=== PATIENT | female | born 1970 | race Caucasian/White ===

== ENCOUNTER → 2022-12-05 09:35 | Outpatient (BNVA) | payer OTHER, SELFPAY | PROVIDERS: Visit Provider Internal Medicine | DX: S09.90XA Unspecified injury of head, initial encounter (principal); S19.9XXA Unspecified injury of neck, initial encounter; S29.9XXA Unspecified injury of thorax, initial encounter; S39.92XA Unspecified injury of lower back, initial encounter; T14.90XA Injury, unspecified, initial encounter; W20.8XXA Other cause of strike by thrown, projected or falling object, initial encounter | CPT/HCPCS: 99203 ==

== ENCOUNTER → 2022-12-12 11:25 | Outpatient (BNVA) | payer OTHER, SELFPAY | PROVIDERS: Visit Provider Internal Medicine | DX: S39.92XD Unspecified injury of lower back, subsequent encounter (principal); S19.9XXD Unspecified injury of neck, subsequent encounter; W20.8XXD Other cause of strike by thrown, projected or falling object, subsequent encounter | CPT/HCPCS: 99213 ==

== ENCOUNTER → 2022-12-19 11:38 | Outpatient (BNVA) | payer OTHER, SELFPAY | PROVIDERS: Visit Provider Internal Medicine | DX: S39.92XD Unspecified injury of lower back, subsequent encounter (principal); W20.8XXD Other cause of strike by thrown, projected or falling object, subsequent encounter | CPT/HCPCS: 99213 ==

== ENCOUNTER → 2022-12-30 11:30 | Outpatient (BNVA) | payer OTHER, SELFPAY | PROVIDERS: Visit Provider Internal Medicine | DX: S39.92XD Unspecified injury of lower back, subsequent encounter (principal); S19.9XXD Unspecified injury of neck, subsequent encounter; W20.8XXD Other cause of strike by thrown, projected or falling object, subsequent encounter; M54.42 Lumbago with sciatica, left side; M54.41 Lumbago with sciatica, right side | CPT/HCPCS: 99213 ==

== ENCOUNTER → 2023-01-10 10:09 | Outpatient (BNVA) | payer OTHER, SELFPAY | PROVIDERS: Visit Provider Internal Medicine | DX: M54.9 Dorsalgia, unspecified (principal); M79.651 Pain in right thigh | CPT/HCPCS: 99213 ==

== ENCOUNTER → 2023-01-24 11:28 | Outpatient (BNVA) | payer OTHER, SELFPAY | PROVIDERS: Visit Provider Internal Medicine | DX: M54.50 Low back pain, unspecified (principal); M54.2 Cervicalgia | CPT/HCPCS: 99213 ==

== ENCOUNTER → 2023-02-07 10:43 | Outpatient (BNVA) | payer OTHER, SELFPAY | PROVIDERS: Visit Provider Internal Medicine | DX: M54.89 Other dorsalgia (principal); M54.2 Cervicalgia | CPT/HCPCS: 99213 ==

== ENCOUNTER → 2023-02-28 10:55 | Outpatient (BNVA) | payer OTHER, SELFPAY | PROVIDERS: Visit Provider Internal Medicine | DX: M54.9 Dorsalgia, unspecified (principal); M54.2 Cervicalgia | CPT/HCPCS: 99213 ==

== ENCOUNTER → 2023-03-06 13:04 | Outpatient (BNVA) | payer OTHER, SELFPAY | PROVIDERS: Visit Provider Physician Assistant Medical | DX: M54.9 Dorsalgia, unspecified (principal); M54.2 Cervicalgia | CPT/HCPCS: 99214 ==

== ENCOUNTER 2023-03-14 10:45 | Outpatient (AMB) | payer MEDICAID, SELFPAY ==
--- NOTE | 2023-03-14 10:47 | MHC.OFFVIS ---
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 Weber, methadone usage presents today with work related injury presents with neck pain that radiates to her arm, worse on the right with constant numbness, tingling, paresthesias and lower back pain with radiation into her right buttock and into her posterior thigh with occasional numbness and tingling but not below knee level. She reports a box and from a 6 feet tall shelf and hit her in the middle posterior neck and glided on her back causing her significant ongoing pain, headaches, muscle spasms, stiffness and decreased functionality with walking and bending but does not necessarily go away with rest. Pain affects her daily functioning, activities, sleep, mood, and social interactions. Physical therapy has provided minimal improvements. 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 Patient has modified her duties at [employer] and has tried to go back at work but notices increased in pain. Denies any fever, shortness of breaths, chest pain, dizziness, gait imbalance, bladder or bowel incontinence or saddle anesthesia. Patient was referred to our office for potential trigger point injections. Onset 11/14/22 Location Mid and lower back, neck and buttocks radiates to right knee Duration Constant pain for past 4 months due to work-related injury Characteristics of symptom or complaint Aching, stabbing, sharp, throbbing, cramping, numbness, tingling, spasming Aggravating or associated factors Movements, walking, bending, lifting Relieving factors Resting, lidocaine patch, NSAIDs Treatment Physical therapy, home program exercises [facility] Medical History Anxiety Chronic low back pain Graves disease History of blood clots History of cervical cancer History of seizure 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 Surgical History History of carpal tunnel surgery History of cone biopsy of cervix History of D&C History of lumbar surgery History of nasal surgery History of shoulder surgery Social History Alcohol intake: never Patient Tobacco Use Status: Current everyday Tobacco user Tobacco use type: Cigarette Cigarette Packs Per Day: 0.5 Use of substances other than those prescribed or required for medical reasons: No Review of Systems Const All systems reviewed & are unremarkable except as noted in HPI and below Physical Exam Vital Signs: Last Vital Signs Pulse 92 03/14/23 11:59 BP 118/62 03/14/23 11:59 Pulse Ox 96 03/14/23 11:59 Oxygen Delivery Method Room Air 03/14/23 11:59 BMI result Body Mass Index 28.6 General: Appears afebrile. Alert and oriented. Mood and affect appropriate. Follows and participates in conversation appropriately. Respiratory effort is unlabored. No cough. No nasal discharge. Able to transition from sit to stand unassisted. Ambulates with bilaterally normal heel strike and toe off. Neck Other: Patient with decreased cervical ROM in all planes/especially with left lateral rotation. Reports increased pain with cervical extension and flexion. Spurling compression test positive, worse on the right. Pain is unchanged by Spurling maneuver with retraction. Elvey's tension test positive bilaterally, with radiation of pain from neck to wrist. Lhermitte's test was negative. DTR intact, +2 and symmetrical. Patient demonstrated 5/5 motor strength of bilateral upper extremities. 2 + radial pulses. Significant tightness throughout bilateral upper trapezius muscles. Mild paravertebral tenderness over facet joints bilaterally. Multiple taut bands palpated throughout bilateral upper trapezius muscles and right levator scapulae muscles. Neck: Yes normal visual inspection, Yes no lymphadenopathy, Yes supple, No anterior neck swelling and Yes no JVD Office Procedures Therapeutic Injection Therapeutic Injection Details: After discussing risk, benefits, expectations and details of the procedure, the patient signed the informed consent. Patient was placed in a sitting position with the neck exposed. Four tender points, (Bilateral upper trapezius and left levator scapulae), were palpated, marked, and then prepped using Chloraprep swab. A 25-gauge, 1 1/2-inch needle was inserted into the area of maximal tenderness with sterile technique. In a fan-like distribution I injected 5 ml of ropivacaine along with 40 mg of Kenalog equally into each trigger point. The needle was withdrawn and bandaids were applied to injection sites. Patient tolerated the procedure well. Post-injection precautions were reviewed with the patient. The patient was discharged from the clinic . [id number] Point Injection =/>3 sites All charges added?: Procedure code (CPT) selection complete Office Meds triamcinolone acetonide Performing Provider: BUTCH Gooden Administered by: BUTCH Gooden on 03/14/23 11:30 Dose Route Admin Location Lot Number Expiration Date [facility] Energy Administrator 40 mg IM [facility] [id number] 11/05/24 [address]-6 [employer] bupivacaine (PF) Performing Provider: BUTCH Gooden Administered by: BUTCH Gooden on 03/14/23 11:30 Dose Route Admin Location Lot Number Expiration Date [facility] Energy Administrator 5 mL Infiltration [facility] [id number] 12/12/25 59336-795-06 [facility] Results Reviewed Results Reviewed: XR THORACIC SPINE, 3 VIEWS XR LUMBAR SPINE, 3 VIEWS 03/06/23 FINDINGS: 5 nonrib-bearing lumbar-type vertebral bodies with suggestion of right L5 hemisacralization. No acute visible fracture or dislocation. Slight levocurvature of the mid lumbar spine. Mild to moderate multilevel degenerative changes disc space narrowing, endplate sclerosis, osteophyte formation, and facet arthropathy. Vertebral body heights and disc spaces are maintained. Posterior elements are intact. Paraspinal soft tissues are unremarkable. Visualized portions of the chest and abdomen are unremarkable. T-shaped IUD noted in the pelvis. IMPRESSION: 1. No acute visible fracture or dislocation. 2. Slight levocurvature of the mid lumbar spine. 3. Mild to moderate multilevel degenerative changes. 4. T-shaped IUD noted in the pelvis. XR CERVICAL SPINE 03/06/23 FINDINGS: No acute visible fracture or dislocation. Multilevel degenerative changes of the cervical spine greatest at C3-C4 with severe disc space narrowing and facet ankylosis. Visualized dens is intact. Vertebral body heights and disc spaces are maintained. Prevertebral soft tissues are unremarkable. Posterior elements are intact. Paraspinal soft tissues are unremarkable. Visualized portions of the upper chest are unremarkable. IMPRESSION: 1. No acute visible fracture or dislocation. 2. Multilevel degenerative changes of the cervical spine greatest at C3-C4 with severe disc space narrowing and facet ankylosis. Assessment & Plan Assessment & Plan (1) Cervical radiculitis: Code(s): M54.12 - Radiculopathy, cervical region (2) Cervical spondylosis: Code(s): M47.812 - Spondylosis without myelopathy or radiculopathy, cervical region (3) History of injury of neck: Code(s): Z87.828 - Personal history of other (healed) physical injury and trauma (4) Myofascial neck pain: Code(s): M54.2 - Cervicalgia (5) Muscle spasm: Code(s): M62.838 - Other muscle spasm Plan 1. Spine imaging reviewed with patient. Cervical spine xray is noted for multilevel degenerative changes of the cervical spine greatest at C3-C4 with severe disc space narrowing and facet ankylosis. Will proceed MRI of the cervical spine to assess for neural integrity and compression. Patient will return to the clinic to discuss results of the MRI findings when it is done and consider interventional therapy as indicated. 2. Discussed interventional treatments for cervical and lower back axial and radicular pain. After discussing with patient TPI versus JEOVANY, she wanted to proceed with TPI. Patient is aware to monitor for side effects. 3. Patient is status post bilateral upper trapezius and right levator scapulae trigger point injections.? Patient tolerated the procedure well and was discharged home in stable condition with discharge instructions.? All questions and concerns were answered. We will follow-up in the clinic to assess response to therapy.? May repeat in 3 months if a good response is noted. Orders: Orders MR cervical spine wo con 03/14/23 M47.812 - Spondylosis without myelopathy or radiculopathy, cervical region, M54.12 - Radiculopathy, cervical region, Z87.828 - Personal history of other (healed) physical injury and trauma Trigger Point Injection 03/14/23 M47.812 - Spondylosis without myelopathy or radiculopathy, cervical region, M54.2 - Cervicalgia, M62.838 - Other muscle spasm Coding Level of Care Code New Pt Level 4 (02958) Diagnoses Cervical radiculitis M54.12 Cervical spondylosis M47.812 History of injury of neck Z87.828 Myofascial neck pain M54.2 Muscle spasm M62.838 CPT Codes Therapeutic Injection - Ther Injection 2: 13527-[id number] Point Injection =/>3 sites ([id number])
[2023-03-14 11:06] VITALS: BP 117/59; PULSE 99; O2SAT 96; BMI 28.6
[2023-03-14 11:58] VITALS: BP 114/57; PULSE 99; O2SAT 95
[2023-03-14 11:59] VITALS: BP 118/62; PULSE 92; O2SAT 96
== END 2023-03-14 11:53 | disposition home or self-care (01) ==
PROVIDERS: Visit Provider Nurse Practitioner Family
DX: M54.12 Radiculopathy, cervical region (principal); M47.812 Spondylosis without myelopathy or radiculopathy, cervical region; Z87.828 Personal history of other (healed) physical injury and trauma; M54.2 Cervicalgia; M62.838 Other muscle spasm
CPT/HCPCS: 20553; 99204

== ENCOUNTER → 2023-03-14 10:45 | Outpatient (BNVA) | payer SELFPAY | PROVIDERS: Visit Provider Nurse Practitioner Family | DX: M47.22 Other spondylosis with radiculopathy, cervical region (principal); M54.2 Cervicalgia; M62.838 Other muscle spasm; Z79.891 Long term (current) use of opiate analgesic | CPT/HCPCS: 20553; 99202; J3300 ==

== ENCOUNTER 2023-03-25 09:29 | Outpatient (REF) | payer SELFPAY ==
--- NOTE | ~2023-03-25 | MR_ITS ---
EXAMINATION: MR CERVICAL SPINE WITHOUT CONTRAST CLINICAL INFORMATION: Spondylosis without myelopathy or radiculopathy. COMPARISON: None available. TECHNIQUE: MRI of the cervical spine was performed using routine sequences without contrast. FINDINGS: The cervical vertebral bodies maintain normal heights and alignment. There is incomplete segmentation of the C3-C4 level with a hypoplastic disc and fusion of the posterior elements. There is moderate disc height loss at C5-C6 and mild disc height loss at C4-C5. No marrow edema is seen. The cord signal appears normal. The imaged intracranial contents and extraspinal soft tissues are unremarkable. SPINAL LEVELS: C2-C3: No posterior disc abnormality. No spinal canal or neural foraminal stenosis. C3-C4: Hypoplastic disc and fused facets. No spinal canal or neural foraminal stenosis. C4-C5: Mild disc osteophyte complex with uncovertebral hypertrophy. Mild to moderate bilateral neural foraminal stenosis. No spinal canal stenosis. C5-C6: Disc osteophyte complex with uncovertebral hypertrophy resulting in severe bilateral neural foraminal stenosis. No spinal canal stenosis. C6-C7: Left foraminal protrusion with uncovertebral hypertrophy resulting in mild to moderate left neural foraminal stenosis. No spinal canal stenosis. C7-T1: No posterior disc abnormality. No spinal canal or neural foraminal stenosis. MR/MR cervical spine wo con IMPRESSION: Multilevel degenerative spondylosis without significant narrowing of the spinal canal. Neural foraminal stenosis appears mild to moderate bilaterally at C4-C5, severe bilaterally at C5-C6, and mild to moderate on the left at C6-C7.
== END 2023-03-25 09:30 | disposition home or self-care (01) ==
LOC: HO.MRI 09:29
PROVIDERS: PCP Internal Medicine; Visit Provider Nurse Practitioner Family
DX: M47.812 Spondylosis without myelopathy or radiculopathy, cervical region (principal); M54.12 Radiculopathy, cervical region; Z87.828 Personal history of other (healed) physical injury and trauma
CPT/HCPCS: 72141

== ENCOUNTER → 2023-03-31 11:31 | Outpatient (BNVA) | payer SELFPAY | PROVIDERS: PCP Internal Medicine; Visit Provider Internal Medicine | DX: M54.2 Cervicalgia (principal); M54.9 Dorsalgia, unspecified; S19.9XXD Unspecified injury of neck, subsequent encounter; S39.92XD Unspecified injury of lower back, subsequent encounter; X58.XXXD Exposure to other specified factors, subsequent encounter | CPT/HCPCS: 99214 ==

== ENCOUNTER 2023-04-04 15:40 | Outpatient (AMB) | payer MEDICAID, SELFPAY ==
--- NOTE | 2023-04-04 15:41 | A.OFFVIS_ITS ---
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 She reports reduced muscle spasms and stiffness s/p recent bilateral upper trapezius and right levator scapulae trigger point injections on 03/14/23 with 2 weeks of relief. She continues to endorse neck pain with movements with radiation to her both arms and fingers bilaterally, mostly thumb, tips of 2nd and 3rd fingers with intermittent tingling and numbness bilaterally. She is interested to undergo interventional treatments with fluoroscopy guidance to address her axial and radicular cervical spine symptoms. Denies any recent cough, cold, infection, fever or other significant changes in medical history since last office visit. Patient denies any bladder or bowel incontinence or saddle anesthesia. PRIOR: Patient is a pleasant 52 years old female with history of seizures, depression, back surgery [place] [address] Weber, methadone usage presents today with work related injury presents with neck pain that radiates to her arm, worse on the right with constant numbness, tingling, paresthesias and lower back pain with radiation into her right buttock and into her posterior thigh with occasional numbness and tingling but not below knee level. She reports a box and from a 6 feet tall shelf and hit her in the middle posterior neck and glided on her back causing her significant ongoing pain, headaches, muscle spasms, stiffness and decreased functionality with walking and bending but does not necessarily go away with rest. Pain affects her daily functioning, activities, sleep, mood, and social interactions. Physical therapy has provided minimal improvements. 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 Patient has modified her duties at [employer] and has tried to go back at work but notices increased in pain. Denies any fever, shortness of breaths, chest pain, dizziness, gait imbalance, bladder or bowel incontinence or saddle anesthesia. Patient was referred to our office for potential trigger point injections. Onset 11/14/22 Location Mid and lower back, neck and buttocks radiates to right knee Duration Constant pain for past 4 months due to work-related injury Characteristics of symptom or complaint Aching, stabbing, sharp, throbbing, cramping, numbness, tingling, spasming Aggravating or associated factors Movements, walking, bending, lifting Relieving factors Resting, lidocaine patch, NSAIDs Treatment Physical therapy, home program exercises [facility] Medical History Anxiety Chronic low back pain Graves disease History of blood clots History of cervical cancer History of seizure 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 Surgical History History of carpal tunnel surgery History of cone biopsy of cervix History of D&C History of lumbar surgery History of nasal surgery History of shoulder surgery Social History Alcohol intake: never Patient Tobacco Use Status: Current everyday Tobacco user Tobacco use type: Cigarette Cigarette Packs Per Day: 0.5 Review of Systems Const All systems reviewed & are unremarkable except as noted in HPI and below Physical Exam Vital Signs: Last Vital Signs Pulse 113 H 04/04/23 15:45 BP 142/64 H 04/04/23 15:45 Pulse Ox 98 04/04/23 15:45 Oxygen Delivery Method Room Air 04/04/23 15:45 BMI result Body Mass Index 28.6 General: Appears afebrile. Alert and oriented. Mood and affect appropriate. Follows and participates in conversation appropriately. Respiratory effort is unlabored. Able to transition from sit to stand unassisted. Ambulates with bilaterally normal heel strike and toe off. Neck Other: Limited cervical ROM with left lateral rotation and increased pain with cervical extension and flexion. Spurling compression test positive, worse on the right. Pain is unchanged by Spurling maneuver with retraction. Elvey's tension test positive bilaterally, with radiation of pain from neck to wrist with in termittent tingling in thumb, 2nd and 3rd fingers bilaterally. Lhermitte's test was negative. DTR intact, +2 and symmetrical. Patient demonstrated 5/5 motor strength of bilateral upper extremities. 2 + radial pulses. No clonus, negative Jimmie's sign. Neck: Yes no lymphadenopathy, Yes supple, No anterior neck swelling and Yes no JVD Back/Spine/Pelvis Cervical Spine: cervical muscular tenderness, pain with cervical ROM, No Cervical spine scars present, No Cervical spine tenderness and No step off deformity Results Reviewed Results Reviewed: MR CERVICAL SPINE WITHOUT CONTRAST 03/25/23 FINDINGS: The cervical vertebral bodies maintain normal heights and alignment. There is incomplete segmentation of the C3-C4 level with a hypoplastic disc and fusion of the posterior elements. There is moderate disc height loss at C5-C6 and mild disc height loss at C4-C5. No marrow edema is seen. The cord signal appears normal. The imaged intracranial contents and extraspinal soft tissues are unremarkable. SPINAL LEVELS: C2-C3: No posterior disc abnormality. No spinal canal or neural foraminal stenosis. C3-C4: Hypoplastic disc and fused facets. No spinal canal or neural foraminal stenosis. C4-C5: Mild disc osteophyte complex with uncovertebral hypertrophy. Mild to moderate bilateral neural foraminal stenosis. No spinal canal stenosis. C5-C6: Disc osteophyte complex with uncovertebral hypertrophy resulting in severe bilateral neural foraminal stenosis. No spinal canal stenosis. C6-C7: Left foraminal protrusion with uncovertebral hypertrophy resulting in mild to moderate left neural foraminal stenosis. No spinal canal stenosis. C7-T1: No posterior disc abnormality. No spinal canal or neural foraminal stenosis. IMPRESSION: Multilevel degenerative spondylosis without significant narrowing of the spinal canal. Neural foraminal stenosis appears mild to moderate bilaterally at C4-C5, severe bilaterally at C5-C6, and mild to moderate on the left at C6-C7. XR THORACIC SPINE, 3 VIEWS XR LUMBAR SPINE, 3 VIEWS 03/06/23 FINDINGS: 5 nonrib-bearing lumbar-type vertebral bodies with suggestion of right L5 hemisacralization. No acute visible fracture or dislocation. Slight levocurvature of the mid lumbar spine. Mild to moderate multilevel degenerative changes disc space narrowing, endplate sclerosis, osteophyte formation, and facet arthropathy. Vertebral body heights and disc spaces are maintained. Posterior elements are intact. Paraspinal soft tissues are unremarkable. Visualized portions of the chest and abdomen are unremarkable. T-shaped IUD noted in the pelvis. IMPRESSION: 1. No acute visible fracture or dislocation. 2. Slight levocurvature of the mid lumbar spine. 3. Mild to moderate multilevel degenerative changes. 4. T-shaped IUD noted in the pelvis. XR CERVICAL SPINE 03/06/23 FINDINGS: No acute visible fracture or dislocation. Multilevel degenerative changes of the cervical spine greatest at C3-C4 with severe disc space narrowing and facet ankylosis. Visualized dens is intact. Vertebral body heights and disc spaces are maintained. Prevertebral soft tissues are unremarkable. Posterior elements are intact. Paraspinal soft tissues are unremarkable. Visualized portions of the upper chest are unremarkable. IMPRESSION: 1. No acute visible fracture or dislocation. 2. Multilevel degenerative changes of the cervical spine greatest at C3-C4 with severe disc space narrowing and facet ankylosis. Assessment & Plan Assessment & Plan (1) Cervical radiculitis: Code(s): M54.12 - Radiculopathy, cervical region (2) Cervical spondylosis: Code(s): M47.812 - Spondylosis without myelopathy or radiculopathy, cervical region (3) History of injury of neck: Code(s): Z87.828 - Personal history of other (healed) physical injury and trauma (4) Myofascial neck pain: Code(s): M54.2 - Cervicalgia (5) Muscle spasm: Code(s): M62.838 - Other muscle spasm Plan 1. Cervical spine MRI results reviewed with patient and noted for multilevel degenerative spondylosis with neural foraminal stenosis appears mild to moderate bilaterally at C4-C5, severe bilaterally at C5-C6, and mild to moderate on the left at C6-C7. 2. Discussed interventional treatments for cervical axial and radicular pain. Schedule Bilateral Diagnostic C4-C5-C6 MBBs with local and fluoroscopy for potential therapeutic injections, peripheral nerve stimulation or cervical MB RFA. For radicular symptoms, will subsequently plan for Bilateral C5-C6 TFESI with fluoroscopy and local. If no relief, will consider neurosurgical evaluation. Expectations, risks and benefits were reviewed. Patient is aware he will be contacted to schedule this procedure. All questions were answered and the patient is in agreement of plan. Follow-up after injections and sooner as needed. Coding Level of Care Code Est Pt Level 4 (66429) Diagnoses Cervical radiculitis M54.12 Cervical spondylosis M47.812 History of injury of neck Z87.828 Myofascial neck pain M54.2 Muscle spasm M62.839
[2023-04-04 15:45] VITALS: BP 142/64; PULSE 113; O2SAT 98; BMI 28.6
== END 2023-04-04 16:12 | disposition home or self-care (01) ==
PROVIDERS: PCP Internal Medicine; Visit Provider Nurse Practitioner Family
DX: M54.12 Radiculopathy, cervical region (principal); M47.812 Spondylosis without myelopathy or radiculopathy, cervical region; Z87.828 Personal history of other (healed) physical injury and trauma; M54.2 Cervicalgia; M62.838 Other muscle spasm
CPT/HCPCS: 99214

== ENCOUNTER → 2023-04-04 15:40 | Outpatient (BNVA) | payer SELFPAY | PROVIDERS: PCP Internal Medicine; Visit Provider Nurse Practitioner Family | DX: M47.22 Other spondylosis with radiculopathy, cervical region (principal); M54.2 Cervicalgia; M62.838 Other muscle spasm; Z87.828 Personal history of other (healed) physical injury and trauma | CPT/HCPCS: 99212 ==

== ENCOUNTER 2023-12-14 09:09 | Outpatient (AMB) | payer OTHER, MEDICAID, SELFPAY ==
--- OUTSIDE RECORDS SUMMARY | 2023-12-14 09:10 | XMS_ITS | Continuity of Care Document ---
Author Organization [facility] Address [address] [place] [address]- Care Team Providers Care Acid Purifier Name Role Phone Francesca Good MD Primary Care Physician [place] [facility] [place] - 08/14/[address] [address]- Allergies, Adverse Reactions, Alerts No Known Allergies Immunizations Given and Recorded Vaccine Date Status Refusal Reason influenza virus vaccine, inactivated 07/16/22 Satish rded influenza virus vaccine, inactivated 07/15/21 Satish rded influenza virus vaccine, inactivated 04/29/20 Satish rded influenza virus vaccine, inactivated 05/23/19 Satish rded SARS-CoV-2 (COVID-19) mRNA BNT-162b2 vac 08/03/21 Recorded SARS-CoV-2 (COVID-19) mRNA BNT-162b2 vac 08/28/20 Recorded SARS-CoV-2 (COVID-19) mRNA BNT-162b2 vac 08/05/20 Recorded zoster vaccine, inactivated 06/03/21 Recorded zoster vaccine, inactivated 02/23/21 Recorded tetanus/diphtheria/pertussis, acel(Tdap) 11/05/18 Recorded Medications ALPRAZolam 1 mg oral tablet 1 tablet = 1 mg, By Mouth, 2 times a day, 0 Refills, Maintenance, 09/26/19 10:28:00 EST, Tablet Start Date: 09/26/19 Status: Ordered citalopram 20 mg oral tablet TAKE 1 TABLET BY MOUTH EVERY DAY Start Date: 05/23/19 Status: Ordered divalproex sodium 250 mg oral tablet, extended release 3 tablet = 750 mg, By Mouth, Daily, # 270 tablet, 3 Refills, Maintenance, 03/23/22 14:37:00 EDT, ERTablet, [id number], 165, cm, 03/12/22 11:39:00 EDT, Height, 76.9, kg, 03/11/22 1:54:00 EDT,Dry Weight Start Date: 03/23/22 Stop Date: 03/18/23 Status: Ordered Keppra 500 mg oral tablet 2 tablet = 1,000 mg, By Mouth, Every 12 hours, # 360 tablet, 4 Refills, Maintenance, 05/04/22 13:42:00 EDT, Tablet, [facility], 165, cm, 03/12/22 11:39:00 EDT, Height, 76.9, kg, 03/11/22 1:54:00 EDT, Dry Weight Start Date: 05/04/22 Stop Date: 07/28/23 Status: Ordered levothyroxine 0.137 mg oral tablet 1 tablet = 137 mcg, By Mouth, Daily, # 90 tablet, 0 Refills, Maintenance, 04/03/19 16:43:36 EDT, Tablet Start Date: 04/03/19 Status: Ordered Methadone = 30 mg, By Mouth, Daily, 0 Refills, Maintenance, 05/20/19 14:04:57 EDT, Partial fill upon patient request Start Date: 05/20/19 Status: Ordered Problem List Condition Confirmation Course Effective Dates Status Health St atus Informant COVID-19 1 Confirmed 07/23/22 Active Seizures Confirmed Active 1Problem added by Discern Expert Social History Social History Type Response Smoking Status Former smoker, quit more than 30 days ago; Other: Quit about 1 year ago; entered on: 04/03/19 Sex Patient Care team information Care Team Personnel Name: Mena Siddiqi RN Position: [facility] RN Supv Member Role: Primary Care Nurse Name: Francesca Good MD Position: [facility] Physician (General Medicine) Member Role: PCP Address: Address: [address] [place] [address]- Care Team Related Persons Name: RAJWINDER WELLS Address: home [address] [place] [address] Name: JHOANA TENORIO Address: home [address] [place] [address]
--- OUTSIDE RECORDS SUMMARY | 2023-12-14 09:10 | XMS_ITS | Continuity of Care Document ---
Author Organization [facility] ter Address [address] [place] [address]- Care Team Providers Care Roll Capper Name Role Phone Jeannine Painting MD Primary Care Physician Encounter [facility] [place] Date(s): 02/17/22 - 02/20/[address] [address] Encounter Diagnosis Subarachnoid hematoma(Final) - 02/17/22 Discharge Disposition: A-D/C Home Attending Physician: Radha Kelly MD Admitting Physician: Radha Kelly MD Referring Physician: Not on Staff, Referring MD Allergies, Adverse Reactions, Alerts No Known Allergies Medications acetaminophen 325 mg oral tablet 650 mg, By Mouth, Every 4 hours, for 5 days, # 30 tablet, Refills 0, Tot. Refills 0, Acute 02/26/2212:09:00 EDT, 02/20/22 12:09:00 EDT, Route to Pharmacy Electronically, [id number], Partial fill upon patient request if the prescription is for... Start Date: 02/20/22 Stop Date: 02/25/22 Status: Ordered ALPRAZolam 1 mg oral tablet 1 tablet = 1 mg, By Mouth, 2 times a day, 0 Refills, Maintenance, 09/26/19 10:28:00 EST, Tablet Start Date: 09/26/19 Status: Ordered citalopram 20 mg oral tablet TAKE 1 TABLET BY MOUTH EVERY DAY Start Date: 05/23/19 Status: Ordered divalproex sodium 250 mg oral tablet, extended release 3 tablet = 750 mg, By Mouth, Daily, # 90 tablet, 0 Refills, Maintenance, 02/20/22 12:09:00 EDT, ER Tablet, [facility], Partial fill upon patient request if the prescription is for a schedule II opioid drug., 165, cm, 02/20/22 11:51:00 EDT, Hei... Start Date: 02/20/22 Stop Date: 03/22/22 Status: Ordered Keppra 500 mg oral tablet 2 tablet = 1,000 mg, By Mouth, Every 12 hours, # 120 tablet, 0 Refills, Maintenance, 02/20/22 12:10:00 EDT, Tablet, [facility]/pharmacy #[id number], Partial fill upon patient request if the prescription is for a schedule II opioid drug., 165, cm, 02/20/22 11:51:00... Start Date: 02/20/22 Stop Date: 03/22/22 Status: Ordered levothyroxine 0.137 mg oral tablet 1 tablet = 137 mcg, By Mouth, Daily, # 90 tablet, 0 Refills, Maintenance, 04/03/19 16:43:36 EDT, Tablet Start Date: 04/03/19 Status: Ordered Methadone = 70 mg, By Mouth, Daily, 0 Refills, Maintenance, 05/20/19 14:04:57 EDT, Partial fill upon patient request Start Date: 05/20/19 Status: Ordered oxyCODONE 5 mg oral tablet 5 mg, Tablet, By Mouth, Every 4 hours, PRN for Pain , Severe, Routine, 02/17/22 18:57:00 EDT Start Date: 02/17/22 Stop Date: 02/21/22 Status: Discontinued Problem List Condition Effective Dates Status Health Status Inform ant Seizures(Confirmed) Active Vital Signs Most recent to oldest [Reference Range]: 1 2 3 Height 165 cm (02/20/22 3:08 PM) 165 cm (02/20/22 11:51 AM) 165 cm (02/20/22 7:59 AM) Weight 71.3 kg (02/18/22 3:23 PM) Oxygen Saturation [94-100 %] 97 % (02/20/22 3:08 PM) 100 % (02/20/22 11:51 AM) 98 % (02/20/22 7:59 AM) Pulse Rate [55-90 bpm] 71 bpm (02/20/22 3:08 PM) 67 bpm (02/20/22 11:51 AM) 62 bpm (02/20/22 7:59 AM) Body Mass Index [18.5-24.99] 26.19 *H* (02/18/22 3:23 PM) Blood Pressure [90-138/55-84 mm Hg] 112/67mm Hg (02/20/22 3:08 PM) 117/75mm Hg (02/20/22 11:51 AM) 114/72mm Hg (02/20/22 7:59 AM) Respiratory Rate [16-30 br/min] 18 br/min (02/20/22 3:08 PM) 18 br/min (02/20/22 11:51 AM) 18 br/min (02/20/22 11:48 AM) Temperature [96.8-100.4 DegF] 97.7 DegF (02/20/22 3:08 PM) 98.3 DegF (02/20/22 11:51 AM) 98.7 DegF (02/20/22 7:59 AM) Mode of Delivery (Oxygen) Room air (02/20/22 3:08 PM) Room air (02/20/22 11:51 AM) Room air (02/20/22 7:59 AM) Blood pressure sites Arm, left (02/20/22 3:08 PM) Arm, right (02/20/22 11:51 AM) Arm, right (02/20/22 7:59 AM) Temperature Route Temporal (02/20/22 3:08 PM) Oral (02/20/22 11:51 AM) Oral (02/20/22 7:59 AM) Dry Weight 71.3 kg (02/18/22 3:23 PM) Social History Social History Type Response Smoking Status Former smoker, quit more than 30 days ago; Other: Quit about 1 year ago; entered on: 04/03/19 Sex
--- OUTSIDE RECORDS SUMMARY | 2023-12-14 09:10 | XMS_ITS | Continuity of Care Document ---
Author Organization [facility] Address Unknown Care Team Providers Care Nylon Winder Name Role Phone Garima JETT, Jeannine Mcgarry Primary Care Physician [phone] [id number] Date(s): 02/21/22 - 03/23/22 [facility] Allergies, Adverse Reactions, Alerts No Known Allergies Medications ALPRAZolam 1 mg oral tablet 1 [...] 0 Refills, Maintenance, 02/20/22 12:10:00 EDT, Tablet, [id number], Partial fill upon patient [...] Date: 05/20/19 Status: Ordered Problem List Condition Effective Dates Status Health Status Inform ant Seizures(Confirmed) Active Social History Social History Type Response Smoking Status Former smoker, quit more than 30 days ago; Other: Quit about 1 year ago; entered on: 04/03/19 Sex
--- OUTSIDE RECORDS SUMMARY | 2023-12-14 09:10 | XMS_ITS | Continuity of Care Document ---
Author Organization [facility] Address [address] [facility], 3r d Floor, [address] [place] [address]- Care Team Providers Care Elementary School Director Name Role Phone Florentino JETT, Francesca Pena Primary Care Physician En[place] [facility] [place] Date(s): 06/17/22 - 07/17/22 [facility] [address] [facility], 3rd Floor, [address] [place] [phone] Allergies, Adverse Reactions, Alerts No Known Allergies [...] Effective Dates Status Health St [facility] Informant Seizures Confirmed Active Social History Social History Type Response Smoking Status Former smoker, quit more than 30 days ago; Other: Quit about 1 year ago; entered on: 04/03/19 Sex Patient Care team information Care Team Personnel Name: Mena Siddiqi RN Position: [facility] RN Supv Member Role: Primary Care Nurse Name: Francesca Good MD Position: [facility] Physician (General Medicine) Member Role: PCP Address: Address: [address] [place] [phone] Care Team Related Persons Name: RAJWINDER WELLS Address: home [address] [place] [address] Name: JHOANA TENORIO Address: home [address] [place] [address]
--- OUTSIDE RECORDS SUMMARY | 2023-12-14 09:10 | XMS_ITS | Continuity of Care Document ---
Author Organization [facility] Address [address] [facility], 3r d Floor, [address] [place] [address]- Care Team Providers Care Design Studio Consultant Name Role Phone Francesca Good MD Primary Care Physician [place] [facility] [place] - 09/11/22 [facility] [address], [address] Floor, [address] [place] [address]- Attending Physician: Admaung, Gilda Admitting Physician: Admtr, Gilda Referring Physician: Admtr, Ar8 Allergies, Adverse Reactions, Alerts No Known Allergies [...] Care team information Care Team Personnel Name: Francesca Good MD Position: [facility] Physician (General Medicine) Member Role: PCP Address: Address: [address] [place] [address]- Care Team Related Persons Name: RAJWINDER WELLS Address: [address] [place] [address] Name: JHOANA TENORIO Address: home [address] [place] [address]
--- OUTSIDE RECORDS SUMMARY | 2023-12-14 09:10 | XMS_ITS | Continuity of Care Document ---
Author Organization [facility] Address [address] [facility], 3r d Floor, [address] [place] [address]- Care Team Providers Care Information Writer Name Role Phone Garima JETT, Jeannine Mcgarry Primary Care Physician [place] [facility] [place] - 06/03/22 [facility] [address] [facility], 3rd Floor, [address] [place] [id number] Allergies, Adverse Reactions, Alerts No [...] on: 04/03/19 Sex Patient Care team information Personnel Name: Garima JETT, Jeannine Mcgarry Address: Address: [address] [place] [address] [place] [address]-
--- OUTSIDE RECORDS SUMMARY | 2023-12-14 09:10 | XMS_ITS | Continuity of Care Document ---
Author Organization [facility] Address [address] [place] [address]- Care Team Providers Care Voice Writing Reporter Name Role Phone Francesca Good MD Primary Care Physician [id number] Date(s): 06/02/22 - 07/02/22 [facility] [address] [address] Allergies, Adverse Reactions, Alerts No Known Allergies [...] Team Personnel Name: Mena Siddiqi RN Position: [facility] RN Supv Member Role: Primary Care Nurse Name: Francesca Good MD Position: [facility] Physician (General Medicine) Member Role: PCP Address: Address: [address] [place] [phone] Care Team Related Persons Name: RAJWINDER WELLS Address: [address] [place] [address] Name: JHOANA TENORIO Address: home [address] [place] [address]
--- OUTSIDE RECORDS SUMMARY | 2023-12-14 09:10 | XMS_ITS | Continuity of Care Document ---
Author Organization [facility] Address [address] [facility], 3r d Floor, [address] [place] [address]- Care Team Providers Care Visual Merchandising Manager Name Role Phone Garima JETT, Jeannine Mcgarry Primary Care Physician [place] [facility] [place] 05/09/22 - 06/08/22 [facility] [address] [facility], 3rd Floor, [address] [place] [id number] Allergies, Adverse Reactions, Alerts No [...] Name: Garima JETT, Jeannine Mcgarry Address: Address: [address] [place] [address] Primary Care [place], [place] [address]
--- OUTSIDE RECORDS SUMMARY | 2023-12-14 09:10 | XMS_ITS | Continuity of Care Document ---
Author Organization [facility] Address [address] [place] [address]- Care Team Providers Care Berry Planter Name Role Phone Francesca Good MD Primary Care Physician [phone] [place] [facility] [place] 07/24/22 [facility] [address] [place] [address]- [place] Allergies, Adverse Reactions, Alerts No Known Allergies [...] Team Personnel Name: Mena Siddiqi RN Position: [facility] RN Supv Member Role: Primary Care Nurse Name: Francesca Good MD Position: [facility] Physician (General Medicine) Member Role: PCP Address: Address: [address] [place] [address]- Care Team Related Persons Name: RAJWINDER WELLS Address: home [address] [place] [address] Name: JHOANA TENORIO Address: home [address] [place] [address]
--- OUTSIDE RECORDS SUMMARY | 2023-12-14 09:11 | XMS_ITS | Continuity of Care Document ---
Author Organization [facility] Address [address] [place] [address]- Care Team Providers Care Rotor Casting Machine Setup Operator Name Role Phone Jeannine Painting MD Primary Care Physician Encounter [facility] [place] Date(s): 02/20/22 - 03/22/[address] [address] Attending Physician: Not on Staff, Attending MD Admitting Physician: Not on Staff, Admitting MD Referring Physician: Not on Staff, Referring [...]
--- OUTSIDE RECORDS SUMMARY | 2023-12-14 09:11 | XMS_ITS | Continuity of Care Document ---
Author Organization [facility] Address [address] [facility], 3r d Floor, [address] [place] [address]- Care Team Providers Care Bmx Rider Name Role Phone Francesca Good MD Primary Care Physician [place] [facility] [place] 06/09/22 - 07/09/22 [facility] [address] [facility], 3rd Floor, [address] [place] [id number] Allergies, Adverse Reactions, Alerts No Known [...] Team Personnel Name: Mena Siddiqi RN Position: [facility] RN Supv Member Role: Primary Care Nurse Name: Francesca Good MD Position: [facility] Physician (General Medicine) Member Role: PCP Address: Address: [address] [place] [address] Care Team Related Persons Name: RAJWINDER WELLS Address: [address] [place] [address] Name: JHOANA TENORIO Address: home [address] [place] [address]
--- OUTSIDE RECORDS SUMMARY | 2023-12-14 09:11 | XMS_ITS | Continuity of Care Document ---
Author Organization [facility] Address [address] [facility], 3r d Floor, [address] [place] [address]- Care Team Providers Care Chemical Laboratory Scientist Name Role Phone Garima JETT, Jeannine Mcgarry Primary Care Physician [place] [facility] [place] 03/23/22 - 04/22/22 [facility] [address] [place], [address]rd Floor, [address] [place] [address]- [place] Allergies, Adverse Reactions, Alerts No Known [...] 1 year ago; entered on: 04/03/19 Sex Care Team Personnel Name: Garima JETT, Jeannine Mcgarry Address: [address] [place] [address] Primary Care [place], [place] [address]
--- OUTSIDE RECORDS SUMMARY | 2023-12-14 09:11 | XMS_ITS | Continuity of Care Document ---
Author Organization [facility] Address [address] [facility], 3r d Floor, [address] [place] [address]- Care Team Providers Care Map Plotter Name Role Phone Garima JETT, Jeannine Mcgarry Primary Care Physician [phone] [place] [facility] [place] 06/11/22 [facility] [address] [facility], 3rd Floor, [address] [place] [id number] Allergies, Adverse Reactions, Alerts No Known [...] Name: Garima JETT, Jeannine Mcgarry Address: Address: [address] [place] [address] Primary Care [place], [place] [address]
--- OUTSIDE RECORDS SUMMARY | 2023-12-14 09:11 | XMS_ITS | Continuity of Care Document ---
Author Organization [facility] Address [address] [facility], [address]r d Floor, [address] [place] [address]- Care Team Providers Care Boot Maker Name Role Phone Francesca Good MD Primary Care Physician [place] [facility] [place]): [place]08[place]22 - 07/08/22 [facility] [address] [facility], 3rd Floor, [address] [place] [id number] Allergies, Adverse Reactions, Alerts No [...] Team Personnel Name: Mena Siddiqi RN Position: [facility] RN Supv Member Role: Primary Care Nurse Name: Francesca Good MD Position: [facility] Physician (General Medicine) Member Role: PCP Address: Address: [address] [place] [phone] Care Team Related Persons Name: RAJWINDER WELLS Address: [address] [place] [address] Name: JHOANA TENORIO Address: home [address] [place] [address]
--- OUTSIDE RECORDS SUMMARY | 2023-12-14 09:11 | XMS_ITS | Continuity of Care Document ---
Author Organization [facility] Address [address] [facility], 3r d Floor, [address] [place] [address]- Care Team Providers Care Metal Bonder Name Role Phone Florentino JETT, Francesca Pena Primary Care Physician [place] [facility] [place] Date(s): 02/07/23 - 03/09/23 [facility] [address] [place], [address] Floor, [address] [place] [id number] Allergies, Adverse Reactions, Alerts No Known [...] Team Personnel Name: Francesca Good MD Position: [facility] Physician - Primary Care Member Role: PCP Address: Address: [address] [place] [address]- Care Team Related Persons Name: RAJWINDER WELLS Address: [address] [place] [address] Name: JHOANA TENORIO Address: home [address] [place] [address]
--- OUTSIDE RECORDS SUMMARY | 2023-12-14 09:11 | XMS_ITS | Continuity of Care Document ---
Author Organization [facility] Address [address] [facility], 3r d Floor, [address] [place] [address]- Care Team Providers Care Cardroom Plastic Card Grader Name Role Phone Garima JETT, Jeannine Mcgarry Primary Care Physician [place] [facility] [place]): [place] - 05/21/22 [facility] [address] [facility], 3rd Floor, [address] [place] [phone] Attending Physician: Gilda Higuera Admitting Physician: Admtr, Gilda Referring Physician: Admtr, [...] Name: Garima JETT, Jeannine Mcgarry Address: Address: [address] [place] [address] Primary Care [place], [place] [address]
--- OUTSIDE RECORDS SUMMARY | 2023-12-14 09:11 | XMS_ITS | Continuity of Care Document ---
Author Organization [facility] ter Address [address] [place] [id number]- Care Team Providers Care Event Sales Representative Name Role Phone Francesca Good MD Primary Care Physician Encounter [facility] [place] Date(s): 07/18/22 - 07/23/[address] [id number] Discharge Disposition: A-D/C Home Attending Physician: Jose Ramon Frazier MD Admitting Physician: Jose Ramon Frazier MD Referring Physician: Jose Ramon Frazier MD Allergies, Adverse Reactions, Alerts No Known [...] patient request Start Date: 05/20/19 Status: Ordered methadone 10 mg oral tablet 30 mg, Tablet, By Mouth, 07/23/22 9:00:00 EST Start Date: 07/23/22 Stop Date: 07/23/22 Status: Completed Problem List Condition Confirmation Course Effective Dates Status Health [facility] Informant COVID-19 1 Confirmed 07/23/22 Active Seizures Confirmed Active 1Problem added by Discern Expert Vital Signs Most recent to oldest [Reference Range]: 1 2 3 Height 165 cm (07/22/22 3:02 PM) 165 cm (07/21/22 8:32 AM) 165 cm (07/21/22 4:19 AM) Weight 66 kg (07/18/22 10:40 AM) Oxygen Saturation [94-100 %] 99 % (07/23/22 11:00 AM) 98 % (07/23/22 9:00 AM) 98 % (07/23/22 3:00 AM) Pulse Rate [55-90 bpm] 79 bpm (07/23/22 11:00 AM) 78 bpm (07/23/22 9:00 AM) 70 bpm (07/23/22 3:00 AM) Body Mass Index [18.5-24.99 kg/m2] 24.24 kg/m2 (07/18/22 10:40 AM) Blood Pressure [90-138/55-84 mm Hg] 107/52mm Hg (07/23/22 11:00 AM) 97/55mm Hg (07/23/22 9:00 AM) 110/54mm Hg (07/23/22 3:00 AM) Respiratory Rate [16-30 br/min] 18 br/min (07/23/22 11:11 AM) 18 br/min (07/23/22 11:00 AM) 18 br/min (07/23/22 10:11 AM) Temperature [96.8-100.4 DegF] 98.2 DegF (07/23/22 11:00 AM) 97.9 DegF (07/23/22 9:00 AM) 97.9 DegF (07/23/22 3:00 AM) Mode of Delivery (Oxygen) Room air (07/23/22 11:00 AM) Room air (07/23/22 9:00 AM) Room air (07/22/22 3:02 PM) Blood pressure sites Arm, right (07/23/22 11:00 AM) Arm, right (07/23/22 9:00 AM) Arm, right (07/23/22 3:00 AM) Temperature Route Oral (07/23/22 11:00 AM) Oral (07/23/22 9:00 AM) Temporal (07/23/22 3:00 AM) Dry Weight 66 kg (07/18/22 10:40 AM) Social History Social History Type Response Smoking Status Former smoker, quit more than 30 days ago; Other: Quit about 1 year ago; entered on: 04/03/19 Sex Admission evaluation note * Clarisa GARCIA, Elizabeth: PERFORM, MODIFY Event Display: Admission Note Authored Date: Patient: ??CINTIANICKOLASDANE ? Age:??52 Years?Sex:??Female?:??1970?? Chief Complaint/Reason for Consult CC: Elective VEEG History of Present Illness Ms. Menendez, 52 y/o female with history of Chronic Pain (b/l knees, back, neck, b/l arms) on Methadone, Seizure D/O; previously was seen by Dr. Carter had been on Keppra in the past,??was seen in February/2022 for a breakthrough seizure at work with a fall sustained a L.SDH/SAH and R. temporal/parietal bone fractures, followed by a seizure witnessed in the ED, was started on Depakote ER 750??mg (takes2 tabs in am and 1 tab in pm), has not had any witnessed seizures since, possible BT sz end of Februaryvs. opiate OD, she had an OP brain MRI and AEEG both of which returned unremarkable, now admitted for elective VEEG. As far as risk factors for epilepsy??she reported that she was adopted. She thinks she had myoclonic jerks that improved with start of Keppra. She?? had a ED visit again in February/2022 suspected opiateOD but patient today reports that she disagrees with this and thinks?? she may have had a seizure. She reports compliance with her medications.? Review of Systems neck pain improving;has been going to PT feels nervous otherwise 10 pt ros is negative Physical Exam Vitals & Measurements T:??98.0?F ?? VA:??109?? RR:??19?? BP:??108/67?? SpO2:??93%?? GENERAL APPERANCE: ??appears stated age, comfortable and appropriate, NAD. HEENT: NC/AT, EOMI, PERRLA. NECK: supple. LUNGS: ??Normal I:E. HEART: RRR ABD: soft, ND, NT. EXT: No clubbing, no edema. SKIN: skin free of rashes NEURO: awake and alert oriented to her name, age, place, mo, yr names well follows commands Cranial Nerves:?? Pupils: PERRLA Extra ocular movements: Intact Facial sensation: Intact, no facial asymmetry Hearing: intact bilaterally Speech: Clear, Fluent, Appropriate Tongue: Protrudes Midline Motor Exam: Strength: 5/5 throughout Sensory: sensation to light touch intact and equal bilaterally to face, bilateral upper extremities, and bilateral lower extremities. Coordination: FTN and finger tapping intact, WILLA intact, pronator drift negative, no tremor, no ataxia. Stance and Gait: not tested. ? (05/27/2022 11:35 EDT MRI Brain W+W/O Contrast) ??IMPRESSION: 1. ??No evidence of acute/subacute infarction, mass effect, or abnormal enhancement. 2. ??A few scattered foci of nonspecific T2 signal abnormality are seen in the supratentorial whitematter. WSN: [id number] ?? [1] ?EEG 03/2022 IMPRESSION:??This 20??hour digitally recorded unattended ambulatory EEG??is within normal limits during??wakefulness and sleep.??An excess of fast activity is present.??This can be seen as a medication effect.??During the course of this day of ambulatory EEG monitoring there were no push button events or diary??entries of note.??No focal, lateralized or epileptiform activity is present.?? Signed by: Ray Lawrence MD?? Date:??03/29/2022? Assessment/Plan 52 y/o female with h/o of hypothyroidism, anxiety, and possible WILLA had a BT sz in February/2022 where she had a ??fall from standing, sustained L. Temporal SAH/SDH and R. Temporal/Parietal bone fractures??admitted for elective vEEG to further evaluate, op AEEG and brain MRI unremarkable. ?? Will start VEEG Will hold Home Depakote for now Will check Depakote level Will c/w home levothyroxine, alprazolam, and methadone, c/w nicotine patch Will plan to sleep deprive tomorrow night if no events Low risk for DVT prophylaxis Will place on dz precautions ?? dw Dr. Lawrence Will follow Please call for any questions. Problem List/Past Medical History Ongoing Seizures Historical STATE, INCIDENTAL Procedure/Surgical History No qualifying data available. Home Medications Alprazolam: 1 mg = 1 tablet, By Mouth, 2 times a day Citalopram: TAKE 1 TABLET BY MOUTH EVERY DAY Divalproex Sodium: 750 mg = 3 tablet, By Mouth, Daily levETIRAcetam: 1,000 mg = 2 tablet, By Mouth, Every 12 hours Levothyroxine: 137 mcg = 1 tablet, By Mouth, Daily Methadone: 30 mg, By Mouth, Daily Allergies NKA Social History Alcohol Use: Never., 04/03/2019 Employment/School Status: Employed. Other: [employer]., 04/12/2019 Home/Environment Living situation: Home/Independent. Lives with: Children., 04/12/2019 Substance Abuse Use: Never., 04/03/2019 Tobacco Use: Former smoker, quit more than 30 days ago. Other: Quit about 1 year ago., 04/03/2019 Family History No family history recorded. [1]??MRI Brain W+W/O Contrast; Rosamaria Biswas MD 05/27/2022 11:35 EDT * Howard JETT, Ray Oates: PERFORM Event Display: Admission Note Authored Date: I personally saw and examined the patient and agree with the findings and plan as noted below.?? Patient is a 52 yo female with history of hypothyroidism, anxiety, possible WILLA though normal ambulatory EEG and MRI brain, breakthrough seizure in February with left temporal SAH and SDH who presents for elective video EEG monitoring.? Impression: possible WILLA here for elective video EEG monitoring.?? Continue on current medications apart from valproate which will stop, sleep deprive on second night Hospital Progress note * Sarah Lowery RN: PERFORM, SIGN, VERIFY Event Display: Progress Note Hospital Authored Date: Patient: DANE MENENDEZ Age: 52 years Sex: Female : 1970 Associated Diagnoses: None Author: Sarah Lowery RN Findings Problem Related to Alteration in Neurological : Alteration in Neurological Function/new 07/23/2022 9:00 EST Alteration in Neuro status Related to Seizure Goals & Outcomes, Neurological Pt will be Neurologically stable, Pt will be seizure controlled Interventions, Neurological Assess/monitor neurologic status, Assess/monitor VS per unit standards & prn, Call/Report variances in assessments to provider, Document & Monitor O2 Sats; Administer O2 as ordered, Maintain normothermia, report temp >101.5 F, Monitor Fluid & Electrolytes,Serum Osmolarity, Monitor for headaches, nausea, vomiting, Monitor speech fluency, aphasia, word finding difficulty, Physical assessment per unit standards, 5 day Video EEG monitoring protocol, Assess & monitor for seizure activity, Initiate & maintain Seizure Precautions BH Goals/Interventions, Neurological Yes Neurological, Problem Start 07/18/2022 14:40 Reviewed plan with, Neurological Patient Patient Progression, Neurological Pt progressing according to plan . Nursing Data Neurological Data. : Neurological Data. 07/23/2022 8:00 EST Neurological Symptoms History of seizures Level of Consciousness Full Consciousness Orientated to person, place, time Person, Place, Time, Event Hallucinations None Facial Symmetry Intact Characteristics of Speech Clear and normal Pupil description, left Regular Pupil description, right Regular Strength LUE 5-Active movement against gravity & full resistance Strength RUE 5-Active movement against gravity & full resistance Strength LLE 5-Active movement against gravity & full resistance Strength RLE 5-Active movement against gravity & full resistance Tone LUE Normal Tone RUE Normal Tone LLE Normal Tone RLE Normal Sensation LUE Intact Sensation RUE Intact Sensation LLE Intact Sensation RLE Intact Movement LUE Spontaneous Movement RUE Spontaneous Movement LLE Spontaneous Movement RLE Spontaneous Response Eye Opening Spontaneously Motor Response-Adult Obeys commands Verbal Response-Adult Oriented and converses Billy Coma Score 15 1 - 10 Pain Scale Score 3 Neuro WNL except Eyes and Movements Conjugate gaze: Move in same direction at same speed Memory Intact Swallow - Neuro Normal . Evaluation Patient is A&Ox4, follows commands, speech is clear and appropriate. Facial symmetry intact, tongue midline, +PERRLA. DUMONT 5/5, sensation intact. Denies N/T, dizziness, HALL. NSR on tele, +pp, no edema or chest pain. LS clear on RA no s/s respiratory distress, endorsing occasional productive cough. +BSx4 LBM 07/21, denies N/V. No issues voiding, ambulating to BR +standby assist, gait steady. Skin is intact, denies pain. No seizure-like activity noted during this shift. EEG leads removed this afternoon, now awaiting d/c home. Enhanced resp precautions in place, call martin in reach, safety maintained. Please see CIS for further assessment. . * Ray Lawrence MD: PERFORM, SIGN, VERIFY Event Display: Progress Note Hospital Authored Date: Patient: DANE MENENDEZ Age: 52 years Sex: Female : 1970 Associated Diagnoses: None Author: Ray Lawrence MD INTRODUCTION: The patient is a 52-year-old female who is referred for possible seizures. MEDICATIONS: not listed CONDITION OF RECORDING: The patient underwent five days of digitally recorded video EEG monitoring beginning on 07/18/2022 at 11:58 AM and ending on 07/23/2022 at 8:00 AM, recorded with the patient awake and in all stages of sleep, reviewed with longitudinal and coronal bipolar montages, as well as average referential and anterior temporal montages with all electrodes applied in accordance with the International 10-20 System. Seizure and spike detection software was utilized throughout the recording. A single channel EKG lead was recorded as well to help identify artifact. The entire record was reviewed with special attention to button presses and diary entries. The patient was sleep deprived on the second night of recording. AEDs were tapered to off during the admission. DAY 1 (from 07/18/2022 at 11:58 AM until 07/19/2022 at 8:00 AM) INTERICTAL EEG DESCRIPTION: An occipital dominant rhythm of 7 to 8 Hz is present.?? Low voltage 18 to 22 Hz activity is seen over the anterior head regions bilaterally. Intermixed activity in the 4 to 7 Hz range is seen in a generalized distribution along with additional intermittent activity in the 2 to 3 Hz range that is primarily seen over the temporal regions bilaterally. Sleep is normal in configuration and distribution. ICTAL EEG AND VIDEO DESCRIPTION: During the course of this day of continuous video EEG monitoring there were no push button events. IMPRESSION: This day of continuous half-way video EEG monitoring is abnormal due to the presence of mild to moderate generalized slowing of the background that is maximal over the temporal regions bilaterally.? This finding while nonspecific suggests the presence of a diffuse disturbance of cerebral function.?No focal, lateralized or epileptiform activity is present. DAY 2 (from 07/19/2022 at 8:00 AM until 07/20/2022 at 8:00 AM) INTERICTAL EEG DESCRIPTION: An occipital dominant rhythm of 7 to 8 Hz is present.?? Low voltage 18 to 22 Hz activity is seen over the anterior head regions bilaterally. Intermixed activity in the 4 to 7 Hz range is seen in a generalized distribution along with additional intermittent activity in the 2 to 3 Hz range that is primarily seen over the temporal regions bilaterally. Sleep is normal in configuration and distribution. ICTAL EEG AND VIDEO DESCRIPTION: During the course of this day of continuous video EEG monitoring there were no push button events. IMPRESSION: This day of continuous half-way video EEG monitoring is abnormal due to the presence of mild to moderate generalized slowing of the background that is maximal over the temporal regions bilaterally.? This finding while nonspecific suggests the presence of a diffuse disturbance of cerebral function.?No focal, lateralized or epileptiform activity is present. DAY 3 (from 07/20/2022 at 8:00 AM until 07/21/2022 at 8:00 AM) INTERICTAL EEG DESCRIPTION: An occipital dominant rhythm of 7 to 8 Hz is present.?? Low voltage 18 to 22 Hz activity is seen over the anterior head regions bilaterally. Intermixed activity in the 4 to 7 Hz range is seen in a generalized distribution along with additional intermittent activity in the 2 to 3 Hz range that is primarily seen over the temporal regions bilaterally. Sleep is normal in configuration and distribution. ICTAL EEG AND VIDEO DESCRIPTION: During the course of this day of continuous video EEG monitoring there were no push button events. IMPRESSION: This day of continuous termite control servicer video EEG monitoring is abnormal due to the presence of mild to moderate generalized slowing of the background that is maximal over the temporal regions bilaterally.? This finding while nonspecific suggests the presence of a diffuse disturbance of cerebral function.?No focal, lateralized or epileptiform activity is present. DAY 4 (from 07/21/2022 at 8:00 AM until 07/22/2022 at 8:00 AM) INTERICTAL EEG DESCRIPTION: An occipital dominant rhythm of 7 to 8 Hz is present.?? Low voltage 18 to 22 Hz activity is seen over the anterior head regions bilaterally. Intermixed activity in the 4 to 7 Hz range is seen in a generalized distribution along with additional intermittent activity in the 2 to 3 Hz range that is primarily seen over the temporal regions bilaterally. Sleep is normal in configuration and distribution. ICTAL EEG AND VIDEO DESCRIPTION: During the course of this day of continuous video EEG monitoring there were no push button events. IMPRESSION: This day of continuous termite control servicer video EEG monitoring is abnormal due to the presence of mild to moderate generalized slowing of the background that is maximal over the temporal regions bilaterally.? This finding while nonspecific suggests the presence of a diffuse disturbance of cerebral function.?No focal, lateralized or epileptiform activity is present. DAY 5 (from 07/22/2022 at 8:00 AM until 07/23/2022 at 8:00 AM) INTERICTAL EEG DESCRIPTION: An occipital dominant rhythm of 7 to 8 Hz is present.?? Low voltage 18 to 22 Hz activity is seen over the anterior head regions bilaterally. Intermixed activity in the 4 to 7 Hz range is seen in a generalized distribution along with additional intermittent activity in the 2 to 3 Hz range that is primarily seen over the temporal regions bilaterally. Sleep is normal in configuration and distribution. ICTAL EEG AND VIDEO DESCRIPTION: During the course of this day of continuous video EEG monitoring there were no push button events. IMPRESSION: This day of continuous half-way video EEG monitoring is abnormal due to the presence of mild to moderate generalized slowing of the background that is maximal over the temporal regions bilaterally.? This finding while nonspecific suggests the presence of a diffuse disturbance of cerebral function.?No focal, lateralized or epileptiform activity is present. * Kasey Banegas RN: PERFORM, SIGN, VERIFY Event Display: Progress Note Hospital Authored Date: [id number] Patient: DANE MENENDEZ Age: 52 years Sex: Female : 1970 Associated Diagnoses: None Author: Kasey Banegas RN Findings Problem Related to Alteration in Neurological : Alteration in Neurological Function/new 07/22/2022 14:00 EST Alteration in Neuro status Related to Seizure Goals & Outcomes, Neurological Pt will be Neurologically stable, Pt will be seizure controlled Interventions, Neurological Assess/monitor neurologic status, Assess/monitor VS per unit standards & prn, Document & Monitor O2 Sats; Administer O2 as ordered, Maintain strict intake & output BH Goals/Interventions, Neurological Yes Neurological, Problem Start 07/18/2022 14:40 Reviewed plan with, Neurological Patient Patient Progression, Neurological Pt progressing according to plan . Nursing Data Cardiac Data. : Cardiac Data. 07/22/2022 12:00 EST Cardiovascular WNL . Gastrointestinal Data. : Gastrointestinal Data. 07/22/2022 12:00 EST Last Bowel Movement 07/21/2022 GI WNL . Genitourinary Data. : Genitourinary Data. 07/22/2022 12:00 EST WNL . HEENT Data. : HEENT Assessment 07/22/2022 12:00 EST HEENT, Adult WNL . Integumentary Data. : Integumentary Data. 07/22/2022 12:00 EST Sensory Perception No impairment Moisture Rarely moist Activity Walks occasionally Mobility No limitations Nutrition Adequate Friction and Shear No apparent problem Sal Score 21 Nursing Care Plan initiated/updated Not applicable Integumentary WNL . IV Lines. : IV Lines. 07/22/2022 14:23 EST Left Hand 20 gauge 1 inch Peripheral IV Activity: Assess Peripheral IV Assess Compare Touch: A/C/T Done, no complications Peripheral IV Site Assessment: Clean, dry and intact, Flushes Well Peripheral IV Site Drainage: None Peripheral IV Dressing: Clean, dry and intact Peripheral IV Intervention: Flushed . Musculoskeletal Data. : Musculoskeletal Data. 07/22/2022 12:00 EST Musculoskeletal WNL . Neurological Data. : Neurological Data. 07/22/2022 16:00 EST Neurological Assessment Status Unchanged from recorder's assessment 07/22/2022 12:00 EST Neuro WNL . Patient Care Data. : Patient Care Data. 07/22/2022 13:00 EST Feeding Assistance Independent Lunch Percent 98 % Urine Count 1 07/22/2022 12:00 EST Patient's Stated Goal none stated, maintain comfort and safety Turn and Reposition Every two hours Sequential Compression Device Not ordered TEDS Not indicated/Not ordered ID band on Yes Allergy band in place/verified N/A Blood Pressure/Venipuncture All 4 limbs may be used Call Martin in Reach-Ensure Ability to Use Yes Patient Instructed on Use of Call Martin Yes Standard Safety Bed alert on, Bed in low position, Non-slip footwear, Upper/Half-length side-rails up, Wheels locked Pt Ed-Learning: Person Taught Patient Pt Ed-Learning: Learning Readiness Yes, alert and oriented Pain system assessment Absence of pain Fall Elimination No impairment Fall Agitation/Anxiety/Depression No impairment Fall Related Sign/Symptom/Condition None Fall Cognitive Limitations No impairment Fall Sensory and Physical Function No impairment Fall High Risk for Injury None of the above Total Falls Risk Score 0 Fall Risk Level No Risk Falls Prevention Plan for Low Risk Bed in lowest locked position, Provide patient/family falls prevention education, Evaluate footwear & ensure patient has non-skid slippers, Place personal care items & call martin within reach, Instruct patient/family to request assistance with ambulatio, Instruct patient/family not to get up without assistance, Supervise the patient when ambulating or making transfers, Check that needs are met to minimize attempts to get up, Hourly rounds, Ensure safe & uncluttered environment, Communicate falls risk to all providers . Vital Signs : VITAL SIGNS SECTION 07/22/2022 15:03 EST Early Warning Score 0.00 07/22/2022 15:02 EST Temperature 98 DegF Temperature Route Oral Pulse Rate 65 bpm Respiratory Rate 16 br/min Systolic Blood Pressure 109 mm Hg Diastolic Blood Pressure 51 mm Hg L Blood pressure sites Arm, right Mean Arterial Pressure 70 mm Hg Pulse Pressure 58 mm Hg Oxygen Saturation 98 % Mode of Delivery (Oxygen) Room air 07/22/2022 12:53 EST Early Warning Score 3.00 07/22/2022 12:52 EST Early Warning Score 3.00 07/22/2022 12:52 EST Pulse Rate 72 bpm Systolic Blood Pressure 98 mm Hg Diastolic Blood Pressure 57 mm Hg Blood pressure sites Arm, left 07/22/2022 12:50 EST Temperature 97.8 DegF Temperature Route Oral Pulse Rate 71 bpm Respiratory Rate 18 br/min Systolic Blood Pressure 92 mm Hg Diastolic Blood Pressure 43 mm Hg L Blood pressure sites Arm, right Oxygen Saturation 99 % Mode of Delivery (Oxygen) Room air . Pain Data : PAIN SECTION 07/22/2022 9:53 EST Pain Intensity 0 . Evaluation Assumed care for patient at 1100. Pt A+Ox4, no neuro defcit. Pt has video EEG monitoring intact. Lungs diminished throughout. Pt has occasional non-productive cough. Neurology Albert paged and requested cough syrup, awaiting orders at this time. No edema +pedal pulses. Skin intact. Pt indpendently ambulating. Pt denies any pain. Able to make needs known. Enhanced respiratory precautions maintained. See CIS for full assessment . Note * Sandor ROBOTICS ENGINEER, Padmaja Mcgarry: PERFORM, MODIFY, MODIFY, MODIFY Event Display: Discharge/Transfer Note Hospital Authored Date: [id number] Patient: ??DANE MENENDEZ ? Age:??52 Years?Sex:??Female?:??1970?? Patient Information Discharge Location: [facility] Primary Care Physician: Francesca Good MD Admit Date/Time: 07/18/22 10:16 Discharge Disposition Discharge Disposition: Home: No Services Discharge Diagnosis Seizure disorder (G40.909) ?? _ Discharge Medications Alprazolam (ALPRAZolam 1 mg oral tablet)?1?tab(s)?1?Milligram?By Mouth?2 times a day Citalopram (citalopram 20 mg oral tablet)?TAKE 1 TABLET BY MOUTH EVERY DAY Divalproex Sodium (divalproex sodium 250 mg oral tablet, extended release)?3?tab(s)?750?Milligram?By Mouth?Daily?for 90?Days levETIRAcetam (Keppra 500 mg oral tablet)?2?tab(s)?1,000?Milligram?By Mouth?Every12 hours?for 90?Days Levothyroxine (levothyroxine 0.137 mg oral tablet)?1?tab(s)?137?Microgram?By Mouth?Daily Methadone?30?Milligram?By Mouth?Daily ? Allergies Allergies ?(Active and Proposed Allergies Only) NKA? (Severity: Unknown severity, Onset: Unknown) ? Future Appointments Monday 9:15 AM EST ?? With: Jose Ramon Frazier MD Where: [facility] [address], [address] [place] [id number]- Hospital Course Patient was admitted for elective vEEG monitoring. Throughout hospital stay, vEEG monitoring showedmild to moderate generalized slowing of the background, maximal over the temporal regions bilaterally, but no epileptiform activity. Patient has been resumed on home Depakote. Objective Assessment and Plan 52-year-old female with??PMH significant for??hypothyroidism, anxiety, and possible WILLA, had a breakthrough seizure??February/2022 where she had a ??fall from standing, sustained Left Temporal SAH/SDH and Right Temporal/Parietal bone fractures, o(maintained on Depakote),??who was admitted for elective vEEG. Previously had an??outpatient AEEG and MRI Brain which was unremarkable. Incidentally, tested??COVID +on routine testing,??d-dimer 0.60. Patient sleep deprived -6 to 12-7 without event.??vEEG monitoring showed mild to moderate generalized slowing of the background, maximal over the temporal regions bilaterally, but no epileptiform activity. patient has been resumed on home Depakote ? 1. Elective vEEG monitoring ?? Plan: - Sleep deprived 07/19 overnight, no seizures - Discontinue vEEG monitoring -??seizure precautions - Continue home Depakote - Outpatient Neurology followup - appointment requested - Patient is currently not driving, she should also avoid swimming alone, tub baths or climbing to heights - should avoid until 6-months event free ? Chronic Problems/Other: Graves' disease ?? Chronic continuous methadone use: - Continue??home methadone ?? Anxiety - Patient is currently on alprazolam? COVID-19 - Currently??mildly symptomatic??with cough and sore throat - Monitor and self isolate ?Dispo: Discharge home ?? Measurements?? Height: 165 cm (07/22/22) Weight: 66 kg (07/18/22) Dry Weight: 66 kg (07/18/22) Body Mass Index: 24.24 kg/m2 (07/18/22) ? Vital Signs?? Temperature: 97.9 DegF (07/23/22 09:00:00) Temperature Route: Oral (07/23/22 09:00:00) Pulse Rate: 78 bpm (07/23/22 09:00:00) Respiratory Rate: 18 br/min (07/23/22 09:00:00) Systolic Blood Pressure: 97 mm Hg (07/23/22 09:00:00) Diastolic Blood Pressure: 55 mm Hg (07/23/22 09:00:00) Blood pressure sites: Arm, right (07/23/22 09:00:00) Mean Arterial Pressure: 70 mm Hg (07/22/22 15:02:00) Pulse Pressure: 58 mm Hg (07/22/22 15:02:00) Oxygen Saturation: 98 % (07/23/22 09:00:00) Mode of Delivery (Oxygen): Room air (07/23/22 09:00:00) Early Warning Score: 3 (07/23/22::32) ? Intake/Output? 07/18 10:16 07/23 07:00 07/22 07:00 07/21 07:00 07/20 07:00 ?? 07/23 09:39 07/23 09:39 07/23 06:59 07/22 06:59 07/21 06:59 Intake ? 4320 ?240 ?720 ?480 ?720 Output ?0 ?0 ?0 ?0 ?0 Net Total ? 4320 ?240 ?720 ?480 ?720 ? Urine Count ? 34 ?0 ?6 ?4 ? 14 ? Precautions Seizure Precautions ? vEEG Monitoring: Video EEG monitoring??with mild to moderate generalized slowing of the background that is maximal over the temporal regions bilaterally.??This finding while nonspecific suggests the presence of a diffuse disturbance of cerebral function.?No focal, lateralized or epileptiform activity is present. ?? . Physical Exam General:?52-year-old female, who appears stated age. Calm and cooperative. Responds appropriately to questioning. Speech clear Integ: Skin is warm, dry and intact. No diaphoresis.?? HEENT: Eyes symmetrical. Pupils 4mm, equally round, regular, and responsive to light. Extraocular eye movements intact. No nystagmus. Hearing grossly intact.?? Cardiovascular:??RRR Respiratory: Respirations even and unlabored. Clear to auscultation throughout GI: Abd soft, nontender, and nondistended. + BS Extremities: warm and perfused. Neurological: Mental status: A&O x3. Answers questions appropriately and follows commands. Cranial Nerves: II: Pupils 4mm equally round, regular and reactive to light III, IV, : EOM intact, no gaze preference or deviation. No nystagmus. VFF. V: Facial sensation intact to light touch in V1, V2, and V3 segments. VII: Face grossly symmetrical, No weakness on activation VIII: Normal hearing to speech IX, X:??Normal palatal elevation, no uvular deviation.?? XI: 5/5 Shoulder shrug bilaterally XII: Midline tongue protrusion Motor: Musculoskeletal development appropriate for age and gender. Moves extremities freely.??No tremor. No rigidity Strength No pronator drift. Brick Loader: L: 5/5 ? R: 5/5 Deltoids: L: 5/5 ? R:5/5 Biceps: ?? L: 5/5 ? R:5/5 Triceps: ?? L: 5/5 ? R:5/5 Knee extension: L: 5/5 ? R: 5/5 Dorsiflexion: ? L: 5/5 ? R: 5/5?? Plantarflexion ?? L: 5/5 ? R:5/5?? Sensory: Sensation intact to light touch in all limbs. No hemineglect, no extinction to double sided stimulation Coordination: Finger to nose without dysmetria Gait: Deferred. Pending Results Add On Lab Order ordered on 07/18/2022 COVID-19 (2019 Novel Coronavirus) PCR ordered on 07/18/2022 Follow-Up Appointments Added Follow Up ?Time Frame ?Comments Jose Ramon Frazier?08/12/2022 09:30?PHONE FOLLOW UP-MD WILL CALLYOU-NOT IN OFFICE Francesca Florentino [facility] Face to Face ^HomeHealthFTF Results Discharge Labs COAG D-Dimer 0.60 mg/L FEU ()?? 07/18/2022 16:50 ? TOXICOLOGY/TDM Valproic Level 58.3 mg/L ()?? 07/18/2022 10:24 Levetiracetam Level <2 mg/L ()?? 07/18/2022 10:24 ?? VIROLOGY COVID-19 by RT-PCR POSITIVE (Abnormal)?? 07/18/2022 13:14 ? Microbiology ?? COVID-19 (2019 Novel Coronavirus) PCR?? Collected?? Source: Nasal Body Site: Nose Collected Dt/Tm: 07/18/2022 12:37 Last Updated Dt/Tm: 07/18/2022 10:16 ? _ minutes spent on discharge * Tonny DUNAWAY, Sharon: PERFORM Event Display: Patient Education/Instruction Authored Date: [id number] Inpatient Adult Discharge Instructions [place] [id number] Name: DANE MENENDEZ : 1970 Visit: 07/18/2022 10:16:00 Current Date: 07/23/2022 11:09 Account: [id number] Inpatient Adult Discharge Instructions We would like to thank you for allowing us to assist you with your healthcare needs. The following includes patient education materials and information regarding your injury/illness. Our entire staffstrives to provide an excellent experience for our patients and their families. PLEASE ENSURE YOU FOLLOW-UP PER THE INSTRUCTIONS BELOW! ?? YOUR OPINION IS IMPORTANT TO US! Please complete the survey you may receive by mail or email. Your feedback will be used to make improvements to the healthcare experiences of our patients and their families. Surveys are administered by [employer] ?? If further treatment with your primary care physician or another doctor is recommended, it is important for you to keep the appointment. Call your primary care physician or return to the Emergency Department immediately if your condition worsens, fails to improve, or new symptoms develop. If you need to find a doctor, you can call [facility] for a referral at [phone] or toll free at [phone] or log in to [email or web address].. ?? You can view and manage your care through the patient portal or by using a health care lizzeth of your choosing. [employer] is a website that allows you to securely view your medical information including your hospital discharge summary, office visit summaries, medications and follow-up visits. You can also request appointments, renew medications, and request access to your medical information using a health care lizzeth of your choosing, or just ask a question. You can enroll at [email or web address] or register during your next office visit. You have been discharged from [facility], Patient Care Unit: D5A. If you have any questions regarding these instructions after you leave, please call us and we will be happy to assist you. [facility] Your Care Team Attending Physician Freddie JETT, Jose Ramon Consulting Providers Howard JETT, Ray Oates Discharging Providers Sandor GARCIA, Padmaja Mcgarry Reason for Admission G40.89 SEIZURES 5 DAY VEEG D5A Your Diagnosis Seizure disorder Tests Performed Below is a partial list of the tests performed during your hospitalization. You may have had other tests and procedures not included in this list. Please discuss all test results with your provider. COVID-19 (2019 Novel Coronavirus) PCR?-- Results Pending -- COVID-19 (NOVEL CORONAVIRUS), PCR D Dimer Levetiracetam Level Valproic Acid Level ? You will be contacted within 72 hours with your results. Primary Care Provider Francesca Good MD Advance Directive Health Care Proxy on File Yes - Health Care Proxy No qualifying data available. Discharge Vitals Temperature: 97.9 DegF Height: 165 cm Pulse Rate: 78 bpm Weight: 66 kg Respiratory Rate: 18 br/min Body Mass Index: 24.24 kg/m2 Systolic Blood Pressure: 97 mm Hg Body surface area: 1.74 Diastolic Blood Pressure: 55 mm Hg ?? Oxygen Saturation: 98 % ?? Studies Pending All tests and labs ordered during this hospital stay have been completed unless listed below. Please discuss all pending results with your provider listed above in these instructions. ?? Add On Lab Order COVID-19 (2019 Novel Coronavirus) PCR What to do next Instructions From Your Doctor Discharge Orders Scheduled Follow-Up Appointments Monday 9:15 AM EST ?? With: Jose Ramon Frazier MD Where: [facility] [address] [place] [address], [address] [place] [address]- You Need to Schedule the Following Appointments Follow Up with??Jose Ramon Frazier When??08/12/2022 09:30 AM EST Why: PHONE FOLLOW UP- WILL CALL YOU-NOT IN OFFICE Follow Up with??Francesca Good When??In 0 days Where: [address] [place] [phone]- Business (1) Discharge Medications DANE MENENDEZ :1970 Visit Date:07/18/2022 Medications: Please continue your medications until treatment is completed or stopped by your provider. Medications not listed below should be discontinued. Discuss any questions related to medications with your provider. What How Much When Instructions Next Dose Unchanged Alprazolam (ALPRAZolam 1 mg oral tablet) 1 tab(s) Oral Twice a day 07/23/22 at 3pm Unchanged Citalopram (citalopram 20 mg oral tablet) TAKE 1 TABLET BY MOUTH EVERY DAY ?? resume home dose Unchanged Divalproex Sodium (divalproex sodium 250 mg oral tablet, extended release) 3 tab(s) Oral Daily Duration: 90 Days 07/24/22 at 9am Unchanged levETIRAcetam (Keppra 500 mg oral tablet) 2 tab(s) Oral Every 12 hours Duration: 90 Days resume home dose Unchanged Levothyroxine (levothyroxine 0.137 mg oral tablet) 1 tab(s) Oral Daily 07/24/22 at 7am Unchanged Methadone 30 Milligram Oral Daily 07/24/22 at 9am last dose 07/23/22 at 1011 Test Results Below is a partial list of the most recent Laboratory test results done prior to this discharge. You may have had other tests and procedures not included in this list. Please discuss all test resultswith your provider. COVID-19 (NOVEL CORONAVIRUS), PCR (07/18/2022) ???COVID-19 by RT-PCR - POSITIVE D Dimer (07/18/2022) ???D-Dimer - 0.60 mg/L FEU Levetiracetam Level (07/18/2022) ? ?Levetiracetam Level - <2 mg/L Valproic Acid Level (07/18/2022) ???Valproic Level - 58.3 mg/L Allergies (NKA means No Known Allergies) NKA Problems Active Problems??(2) COVID-19?? Seizures?? Education Materials Below is the list of Educational Leaflet Providered with your Discharge Instructions. Fall??Prevention?? First Aid: Seizures?? Coronavirus Disease 2019 (COVID-19): Overview?? Safety During a Seizure?? How Seizures Affect the Body?? Self-Care for Seizures?? Valuables and Belongings I fully understand and agree that [facility] accepts no responsibility for all my personal property including clothing, toilet articles, radios, jewelry, dentures, hearing aids, rings, money, or any other property that is in my possession or is brought to me after admission. I understand certain valuables may be placed in a hospital safe for a short period of time. I understand that the hospital is not liable for loss or damage due to accident, fire, or other natural occurrence while said property is in the safe. I accept full responsibility for any personal property that I keep with me, and will not hold the hospital responsible in case of loss or disappearance. I acknowledge that i have been encouraged to send valuables and belongings home. ?? Review of Valuable and Belonging List: With patient Date for Pt to Sign Valuables/Belongings: 07/18/22 10:28:00 ?? Other Discharge Information ? Pulmonary Rehab Status?? Pulmonary Rehab Discharge Status?? Respiratory Rate: 18 br/min ? Common Emergency Awareness Tips IS IT A STROKE? Act FAST and Check for these signs: FACE Does the face look uneven? ARM Does one arm drift down? SPEECH Does their speech sound strange? TIME Call at any sign of stroke ?? Heart Attack Signs Chest discomfort: Most heart attacks involve discomfort in the center of the chest and lasts more than a few minutes, or goes away and comes back. It can feel like uncomfortable pressure, squeezing, fullness or pain. Discomfort in upper body: Symptoms can include pain or discomfort in one or both arms, back, neck, jaw or stomach. Shortness of breath: With or without discomfort. Other signs: Breaking out in a cold sweat, nausea, or lightheaded. Remember, MINUTES DO MATTER. If you experience any of these heart attack warning signs, call to get immediate medical attention! ?? Smoking can increase your chances of developing chronic health problems and can cause harmful effects to other family members in your house. If you smoke, you are strongly encouraged to quit. Please call [facility] at [phone] or [phone] or log in to [email or web address] for referrals to smoking cessation programs. ?? The National Suicide Prevention Hotline is available 06/03 if you or someone you know needs to find a reason to keep living. By calling .tv (0079) you'll be connected to a skilled, trained counselor at a crisis center in your area. INPATIENT DISCHARGE INSTRUCTIONS SIGNATURE PAGE DANE MENENDEZ Location:[facility] Registration Date and Time:07/18/2022 10:16 [facility] Primary Care Physician: Florentino JETT, Francesca Pena, Dominic DANE MENENDEZ, have received the above patient education materials/instructions and have verbalized understanding. If ambulance or transport services are being used I further acknowledge being givena choice of service. ?? If you need to contact me, please call me at this number: . Patient/Plaster Molder Name: Patient/Plaster Molder Signature: Relationship to Patient: Witness Name/Signature: Date: * Tonny DUNAWAY, Sharon: PERFORM Event Display: Patient Education/Instruction Authored Date: [id number] Inpatient Adult Discharge Instructions [address] [address] Name: DANE MENENDEZ : 1970 Visit: 07/18/2022 10:16:00 Current Date: 07/23/2022 11:09 Account: [id number] Inpatient Adult Discharge Instructions We would like to thank you for allowing us to assist you with your healthcare needs. The following includes patient education materials and information regarding your injury/illness. Our entire staffstrives to provide an excellent experience for our patients and their families. PLEASE ENSURE YOU FOLLOW-UP PER THE INSTRUCTIONS BELOW! ?? YOUR OPINION IS IMPORTANT TO US! Please complete the survey you may receive by mail or email. Your feedback will be used to make improvements to the healthcare experiences of our patients and their families. Surveys are administered by [employer] ?? If further treatment with your primary care physician or another doctor is recommended, it is important for you to keep the appointment. Call your primary care physician or return to the Emergency Department immediately if your condition worsens, fails to improve, or new symptoms develop. If you need to find a doctor, you can call [facility] for a referral at [phone] or toll free at [phone]) or log in to [email or web address] ?? You can view and manage your care through the patient portal or by using a health care lizzeth of your choosing. [employer] is a website that allows you to securely view your medical information including your hospital discharge summary, office visit summaries, medications and follow-up visits. You can also request appointments, renew medications, and request access to your medical information using a health care lizzeth of your choosing, or just ask a question. You can enroll at [email or web address] or register during your next office visit. You have been discharged from [facility], Patient Care Unit: D5A. If you have any questions regarding these instructions after you leave, please call us and we will be happy to assist you. [facility] Your Care Team Attending Physician Jose Ramon Frazier MD Consulting Providers Howard JETT, Ray Oates Discharging Providers Sandor GARCIA, Padmaja Mcgarry Reason for Admission G40.89 SEIZURES 5 DAY VEEG D5A Your Diagnosis Seizure disorder Tests Performed Below is a partial list of the tests performed during your hospitalization. You may have had other tests and procedures not included in this list. Please discuss all test results with your provider. COVID-19 (2019 Novel Coronavirus) PCR?-- Results Pending -- COVID-19 (NOVEL CORONAVIRUS), PCR D Dimer Levetiracetam Level Valproic Acid Level ? You will be contacted within 72 hours with your results. Primary Care Provider Francesca Good MD Advance Directive Health Care Proxy on File Yes - Health Care Proxy No qualifying data available. Discharge Vitals Temperature: 97.9 DegF Height: 165 cm Pulse Rate: 78 bpm Weight: 66 kg Respiratory Rate: 18 br/min Body Mass Index: 24.24 kg/m2 Systolic Blood Pressure: 97 mm Hg Body surface area: 1.74 Diastolic Blood Pressure: 55 mm Hg ?? Oxygen Saturation: 98 % ?? Studies Pending All tests and labs ordered during this hospital stay have been completed unless listed below. Please discuss all pending results with your provider listed above in these instructions. ?? Add On Lab Order COVID-19 (2019 Novel Coronavirus) PCR What to do next Instructions From Your Doctor Discharge Orders Scheduled Follow-Up Appointments Monday 9:15 AM EST ?? With: Jose Ramon Frazier MD Where: [facility] [address] [place] [address] [address]rd Floor, [address] [place] [id number]- You Need to Schedule the Following Appointments Follow Up with??Jose Ramon Frazier When??08/12/2022 09:30 AM EST Why: PHONE FOLLOW UP- WILL CALL YOU-NOT IN OFFICE Follow Up with??Francesca Good When??In 0 days Where: [address] [place] [phone]- Business (1) Discharge Medications DANE MENENDEZ :1970 Visit Date:07/18/2022 Medications: Please continue your medications until treatment is completed or stopped by your provider. Medications not listed below should be discontinued. Discuss any questions related to medications with your provider. What How Much When Instructions Next Dose Unchanged Alprazolam (ALPRAZolam 1 mg oral tablet) 1 tab(s) Oral Twice a day Unchanged Citalopram (citalopram 20 mg oral tablet) TAKE 1 TABLET BY MOUTH EVERY DAY ?? Unchanged Divalproex Sodium (divalproex sodium 250 mg oral tablet, extended release) 3 tab(s) Oral Daily Duration: 90 Days Unchanged levETIRAcetam (Keppra 500 mg oral tablet) 2 tab(s) Oral Every 12 hours Duration: 90 Days Unchanged Levothyroxine (levothyroxine 0.137 mg oral tablet) 1 tab(s) Oral Daily Unchanged Methadone 30 Milligram Oral Daily Test Results Below is a partial list of the most recent Laboratory test results done prior to this discharge. You may have had other tests and procedures not included in this list. Please discuss all test resultswith your provider. COVID-19 (NOVEL CORONAVIRUS), PCR (07/18/2022) ???COVID-19 by RT-PCR - POSITIVE D Dimer (07/18/2022) ???D-Dimer - 0.60 mg/L FEU Levetiracetam Level (07/18/2022) ? ?Levetiracetam Level - <2 mg/L Valproic Acid Level (07/18/2022) ???Valproic Level - 58.3 mg/L Allergies (NKA means No Known Allergies) NKA Problems Active Problems??(2) COVID-19?? Seizures?? Education Materials Below is the list of Educational Leaflet Providered with your Discharge Instructions. Fall??Prevention?? First Aid: Seizures?? Coronavirus Disease 2019 (COVID-19): Overview?? Safety During a Seizure?? How Seizures Affect the Body?? Self-Care for Seizures?? Valuables and Belongings I fully understand and agree that [facility] accepts no responsibility for all my personal property including clothing, toilet articles, radios, jewelry, dentures, hearing aids, rings, money, or any other property that is in my possession or is brought to me after admission. I understand certain valuables may be placed in a hospital safe for a short period of time. I understand that the hospital is not liable for loss or damage due to accident, fire, or other natural occurrence while said property is in the safe. I accept full responsibility for any personal property that I keep with me, and will not hold the hospital responsible in case of loss or disappearance. I acknowledge that i have been encouraged to send valuables and belongings home. ?? Review of Valuable and Belonging List: With patient Date for Pt to Sign Valuables/Belongings: 07/18/22 10:28:00 ?? Other Discharge Information ? Pulmonary Rehab Status?? Pulmonary Rehab Discharge Status?? Respiratory Rate: 18 br/min ? Common Emergency Awareness Tips IS IT A STROKE? Act FAST and Check for these signs: FACE Does the face look uneven? ARM Does one arm drift down? SPEECH Does their speech sound strange? TIME Call at any sign of stroke ?? Heart Attack Signs Chest discomfort: Most heart attacks involve discomfort in the center of the chest and lasts more than a few minutes, or goes away and comes back. It can feel like uncomfortable pressure, squeezing, fullness or pain. Discomfort in upper body: Symptoms can include pain or discomfort in one or both arms, back, neck, jaw or stomach. Shortness of breath: With or without discomfort. Other signs: Breaking out in a cold sweat, nausea, or lightheaded. Remember, MINUTES DO MATTER. If you experience any of these heart attack warning signs, call to get immediate medical attention! ?? Smoking can increase your chances of developing chronic health problems and can cause harmful effects to other family members in your house. If you smoke, you are strongly encouraged to quit. Please call [facility] [employer] [facility] at [phone] or [phone]) or log in to [email or web address] for referrals to smoking cessation programs. ?? The National Suicide Prevention Hotline is available 06/03 if you or someone you know needs to find a reason to keep living. By calling 2-739-981Enbase (4438) you'll be connected to a skilled, trained counselor at a crisis center in your area. INPATIENT DISCHARGE INSTRUCTIONS SIGNATURE PAGE DANE MENENDEZ Location:[facility] Registration Date and Time:07/18/2022 10:16 [facility] Primary Care Physician: Florentino JETT, Francesca Pena, I DANE MENENDEZ, have received the above patient education materials/instructions and have verbalized understanding. If ambulance or transport services are being used I further acknowledge being givena choice of service. ?? If you need to contact me, please call me at this number: . Patient/Plaster Molder Name: Patient/Plaster Molder Signature: Relationship to Patient: Witness Name/Signature: Date: * Sharon Lancaster RN: PERFORM Event Display: Patient Education Leaflets Authored Date: Fall??Prevention ?? [id number] Fall??Prevention Falls often take place due to slipping, tripping, or losing your balance. Millions of people fall every year and injure themselves.??Among older adults in the [place] falls are the most common cause oftraumatic brain injuries. Every 20 minutes, an older adult dies from a fall. Here are ways to reduce your risk of falling again: ??? Think about your fall. Was there anything that caused your fall that can be fixed, removed, or replaced? Make your home safe by keeping walkways clear of objects you may trip over, such as electrical cords. ??? Use nonslip pads under rugs. Don't use area rugs orsmall throw rugs. ??? Use nonslip mats in bathtubs and showers. ??? Hang grab rails by the toilet and inside and outside the shower. ??? Install handrails and lights on staircases. The handrails should be on both sides of the stairs. ??? Use night lights. ??? Don't walk in poorly lit areas. ??? Don't stand on chairs or wobbly ladders. ??? Use care when reaching overhead or looking up.??This position can cause a loss of balance. ??? Be sure your shoes fit well, are in good condition, and have non slip bottoms.? Wear shoes both inside and outside of your home. Don't go barefoot or wear slippers. ??? Be cautious when going up and down stairs, curbs, and when walking on uneven sidewalks. ??? If your balance is poor, consider using a cane or walker. Talk with your healthcare provider abouthaving a balance assessment. ??? If your fall was related to alcohol use, stop or limit alcohol intake.??Ask your provider for help if you think you may overuse alcohol and can't stop. ??? If your fall was related to use of sleeping medicines, talk with your provider about this.??You may need to reduce your dosage at bedtime if you wake up during the night to go to the bathroom.? To reducethe need for nighttime bathroom trips: o Don't drink fluids for several hours before going to bed oEmpty your bladder before going to bed o Men can keep a urinal at the bedside ??? Stay as active asyou can. Balance, flexibility, strength, and endurance all come from exercise. They all play a rolein preventing falls. Ask your provider which types of activity are right for you. Try to do some type of exercise every day. ??? Get your eyes checked once a year or more often if your vision changes??? If you have pets, know where they are before you stand up or walk so you don't trip over them. ??? Go over all your medicines with a pharmacist or other provider. This is to see if any of them could make you more likely to fall. Have this type of medicine review at least once every year. ??? Ifyour provider advises a new medicine, ask if the side effects will affect your balance. ??? Don't move quickly from one position to another. For instance, don't stand up fast from sitting. This can cause dizziness and may lead to a fall. ??? Sit down when putting on pants, socks, and shoes. This will make you less likely to lose your balance and fall. ??? Always let your provider know if you havefallen since your last visit. ??? Contact your provider right away if you're having balance problems or falling more often. Last Reviewed Date: 2021 ?? The [employer]. All rights reserved. This information is not intended as a substitute for professional medical care. Always follow your healthcare professional's instructions. ?? * Sharon Lancaster RN: PERFORM Event Display: Patient Education Leaflets Authored Date: [id number] First Aid: Seizures ?? [id number] First Aid: Seizures A seizure results from a sudden hernandez of abnormal electrical signals in the brain. Symptoms may range from a minor daze to uncontrollable muscle spasms (convulsions). In many cases, the person will faint (lose consciousness). A seizure can be caused by a high fever, head injury, medicine reaction, or condition such as epilepsy. Step 1. Protect the head ??? Help the person to the floor if they start losing muscle control. Turn them on their side. Thisis to help them breathe better. It also helps prevent choking or having a foreign object get into their airway (aspiration). ??? Protect the person's head from injury by placing something soft under it, such as folded clothes. Also move any objects away from the person. ??? Don't cause injury by restraining the person or by placing anything in their mouth. Don't try to hold the person's tongue. ??? Remove eyeglasses. ?? Step 2.?? Preserve dignity ??? Clear away bystanders. ??? Reassure the person. They may be confused, drowsy, or hostile when coming out of the seizure. ??? Cover the person or provide dry clothes if muscle spasms have caused a loss of bladder control. ?? Step 3. Check for injury ??? Make sure the person's mental state has returned to normal. One way todo this is to ask them their name, the year, and your location. ??? Injuries can occur to the head,mouth, tongue, or body.? Check to see if the person is wearing a medical information bracelet with instructions ?? Step 4. Call 911 Call 911 right away if: ??? The seizure lasts longer than??5??minutes. Timing the seizure and recovery time is helpful in many cases. ??? A second seizure occurs ??? The person doesn???t??regain consciousness ??? The person is , has diabetes, or heart disease ??? The victim has no history of seizures ??? The person has an injury during the seizure.? Last Reviewed Date: 2020 ?? 2761-7531 [employer]. All rights reserved. This information is not intended as a substitute for professional medical care. Always follow your healthcare professional's instructions. ?? * Tonny DUNAWAY, Sharon: PERFORM Event Display: Patient Education Leaflets Authored Date: [id number] Coronavirus Disease 2019 (COVID-19): Overview ?? 30972 Coronavirus Disease 2019 (COVID-19): Overview Coronavirus disease 2019 (COVID-19) is an illness that infects the lungs. It's caused by a type of coronavirus. The virus is called SARS-CoV-2. There are many types of coronaviruses. They are a common cause of colds and bronchitis. They can cause a lung infection called pneumonia. Symptoms can range from mild to severe. Some people have no symptoms. These types of viruses are also found in some animals. Viruses change (mutate) all the time. The changes lead to different forms of a virus. These are called variants. COVID-19 variants may spread more easily from person to person. They may cause milder symptoms. Or they may cause more severe symptoms.?? The virus spreads and infects people easily. It can infect a person more easily if they are not immune to it. The virus most often spreads through droplets of fluid that a person coughs or sneezes into the air. In some cases, you can get it from touching a surface with the virus on it and then touching your eyes, nose, or mouth. To help prevent spreading the infection, wash your hands often, or use an alcohol-based hand electronic service technician. To learn more For the latest from the CDC: ? Go to the CDC website ??? Call 474-WHX-ZFXK ([phone]) ? What are the symptoms of COVID-19? Some people have no symptoms. Some have mild symptoms. Others may have severe symptoms. This variesfrom person to person. Symptoms may start 2 to 14 days after contact with the virus. They can include: ??? Fever ??? Chills ??? Coughing ??? Trouble breathing or feeling short of breath ??? Sore throat ??? Stuffy or runny nose ??? Headache ??? Body aches ??? Tiredness ??? Nausea, vomiting, diarrhea, or belly pain ??? New loss of sense of smell or taste Check your symptoms with the [facility]???s Coronavirus Self-Vacuum System Tester. ?? What are possible complications of COVID-19? The virus can cause an infection in the lungs. This is called pneumonia. This can lead to in some cases. Experts are still learning more about COVID-19 problems. Problems may include: ??? Low blood pressure ??? Kidney failure ??? Inflammation of the brain or heart ??? Rashes Some people are at higher risk for problems. This includes: ??? Older adults ??? People with heart or lung disease ??? People with diabetes or kidney disease ??? People with health conditions that limit the immune system ??? People who take medicines that limit the immune system Rarely, a child may have a severe complication. This is called multisystem inflammatory syndrome inchildren (MIS-C). MIS-C seems to be like Kawasaki disease. This is a rare illness. It causes swelling of blood vessels and body organs. MIS can also happen in adults. But this is less common. ? How is COVID-19 diagnosed? Your healthcare provider will ask: ??? What symptoms you have ??? Where you live ??? If you???ve traveled recently ??? If you???ve hadcontact with sick people ??? If you are vaccinated against COVID-19 ??? If you have had COVID-19 Know your testing options with the CDC's COVID-19 Viral Testing Tool. You may have 1 of these testsfor COVID-19: ??? Viral (molecular) test. You may also hear this called a PCR or RT-PCR test. Viral tests are very accurate. A viral test looks for the genetic material (RNA) of the SARS-CoV-2 virus. There are a few ways to do this. A swab may be wiped inside your nose or throat. Or a long swab may be put into your nose down to the back of your throat. Or a sample of your saliva may be taken. Your test results may be back in 45 minutes to a few hours. This depends on the type of test. Some tests must be sentto a lab. These can take several days for the results. You can now get test kits to use at home. Some of these need a prescription. Follow the instructions in the kit closely if you use a home kit. Some kits show results quickly at home. Others must be sent to a lab for the results. ??? Antigen test. This can find proteins from the SARS-CoV-2 virus. A swab may be wiped inside your nose or throat.Or a long swab may be put into your nose down to the back of your throat. Some results are back within 15 to 60 minutes. This depends on the type of test. Positive results are very accurate. But false positive results can happen. And the results can be negative even in people with COVID-19. Antigentests are more likely to miss a COVID-19 infection than a viral (molecular) test. You may need to have a viral test if your antigen test is negative but you have symptoms of COVID-19. ??? Breath test. This rapid test is not widely available at this time. It finds SARS-CoV-2 infection in the breath.The test is done at providers' offices, hospitals, and mobile testing sites. You may have other tests if your provider thinks or confirms that you have COVID-19. These tests may include: ??? Antibody blood test. This type of test can show if you had the virus in the past. It shows antibodies for the virus in the blood. The accuracy of these tests varies. And they are not available everywhere. An antibody test may not show if you have an infection right now. This is because it can take up to a few weeks for your body to make antibodies. None of the antibody tests can yet be used to tell if a person is immune to the virus. ??? Sputum culture. If you have a wet cough, you may be asked to cough up a bit of mucus (sputum) from your lungs. This is tested for the virus. It may be tested for pneumonia. ??? Imaging tests. You may have a chest X-ray or CT scan. Can you get COVID-19 again? Yes, you can get COVID-19 more than once. You may not have immunity. You could have lost the immunity. Or you may get COVID-19 from a different strain (variant) of the virus that you are not immune to. But the COVID-19 vaccine helps lower the risk for COVID-19. ?? Vaccines for COVID-19 The FDA and CDC advise vaccines to help prevent COVID-19. The vaccines can also make the illness less severe. It can keep you from needing to go to the hospital.?? And it can prevent the spread of the virus to others. No vaccine is 100% effective at preventing an illness. But getting a vaccine is important. COVID-19 vaccines are available for people as young as 6 months old. or people can have the vaccine. Vaccines are given as a primary series.Boosters are given later tohelp with protection. The vaccines are given as a shot (injection) into the muscle. Ask your healthcare provider which vaccine is best for you and your family. There is a 1- dose vaccine from [employer] (J&&) for people ages 18 and older. Or a 2-dose vaccine from [employer] for people ages 12 and older. Two-dose Pfizer and Moderna vaccines are for people as young as 6 months old. They are given in se veral doses a few weeks apart. People with a weak immune system may have other advice. Talk with your healthcare provider about which vaccine is best for you and your family. COVID-19 vaccine booster shots People age 5 or older can get a COVID-19 booster shot. It's given a few months after their primary series. Boosters can help with protection against COVID-19 that may have decreased over time. Booster advice varies by vaccine, age, health, and COVID-19 variants. Talk with your provider aboutyour risk and when to get a booster. ?? How is COVID-19 treated? The best treatments right now are those to help your body while it fights the virus. This is calledsupportive care. It includes: ??? Rest.This helps your body fight the illness. ??? Fluids. Try to drink 6 to 8 glasses of fluids every day. Ask your provider which drinks are best for you. Don't have drinks with caffeine or alcohol. ??? Ieht-wkg-iwhuoeq (OTC) medicine. These are used to help ease pain and reduce fever. Ask yourprovider which OTC medicine is safe for you to use. Talk with your provider if you have confirmed COVID-19. You may qualify for medicines approved by the FDA to prevent severe COVID-19 infection. You may need to stay in the hospital for severe illness. Your care may include: ??? IV fluids. These are given through a vein. This helps to replace fluids in your body. ??? Oxygen. You may be given extra oxygen. Or you may be put on a breathing machine (ventilator). This is done so you get enough oxygen in your body. ??? Prone positioning. Your healthcare team may regularly turn you on your stomach. This is called prone positioning. It helps increase the amount of oxygen you get to your lungs.Follow their instructions on position changes while you're in the hospital and at home. ??? Antivirals and monoclonal antibodies. The FDA has approved certain antivirals and monoclonal antibodies to treat COVID-19. These treatments are for people who are more likely to get very sick. These treatments are not available for everyone. Talk with your healthcare provider to learn more. o Antivirals stop the SARS-CoV-2 virus from spreading in the body. o Monoclonal antibodies help the immune system fight the virus. ? Steroids or other anti-inflammatory medicines. These are used to lessen the inflammation that some people with COVID-19 have. Inflammation can lead to more trouble breathing. Itcan cause other complications or . ??? COVID-19 convalescent plasma. Plasma is the liquid partof blood. People who had COVID-19 may be asked to donate plasma. This is called COVID-19 convalescent plasma. The plasma may have antibodies. These can help fight COVID-19 in people who are very ill with it. Check with your provider to see if this is an option in your area. ?? Are you at risk for COVID-19? You are at risk for COVID-19 if any of these apply to you: ??? You live in or traveled to an area with cases of COVID-19 ??? You had close contact (within 6 feet) with someone who had COVID-19 COVID-19 may be spread by people who don't show symptoms. Date last modified: 04/21/2022 ?? Last Reviewed Date: 2021 ?? [employer]. All rights reserved. This information is not intended as a substitute for professional medical care. Always follow your healthcare professional's instructions. ?? * Ramon DUNAWAY, Sarah: PERFORM, SIGN, VERIFY Event Display: Patient Education Handout Authored Date: [id number] Patient Care team information Care Team Personnel Name: Mena Siddiqi RN Position: [facility] RN Supv Member Role: Primary Care Nurse Name: Francesca Good MD Position: [facility] Physician (General Medicine) Member Role: PCP Address: Address: [address] [place] [id number] Care Team Related Persons Name: RAJWINDER WELLS Address: [address] [place] [address] Name: JHOANA TENORIO Address: [address] [place] [address]
--- NOTE | 2023-12-14 09:28 | MHC.OFFVIS ---
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 States she is experiencing neck pain that radiates to her arms right greater than left, with constant numbness, tingling, lower back pain with radiation into her right buttock and into her posterior thigh with occasional numbness and tingling but not below knee level. She reports a metal cabinet fell and hit her in the middle posterior neck and glided on her back causing her ongoing pain, headaches, muscle spasms, stiffness. Pain affects her daily functioning, activities, sleep, mood, and social interactions. Physical therapy and naproxen has provided minimal improvements and relief. She is currently unemployed due to injury. Patient was seen at pain management and received 3 cortisone injections in her neck last year which provided relief for a month. Hx of back surgery [place] [address] Weber Allergies No Known Allergies Allergy (Verified 12/14/23 09:38) Medication List - Last Reconciled 12/14/23 by Leticia Beltran MD aripiprazole mg PO citalopram 20 mg PO DAILY clonazepam 1 mg PO TID PRN ibuprofen 200 mg PO Q6H PRN levothyroxine 0 mcg PO lidocaine 5% 1 patch topical Q3D methadone 30 mg PO DAILY naproxen 375 mg PO BID PRN HPI Comments Details: Constant posterior and right neck pain, going down to back and right arm. Right hand goes numb, after the neck pain. Though would get night time hand numbness bilateral. NO weakness. Good shoulder ROM. Treatment done so far: methadone - chronic neck pain, chronic pain last physical therapy - 2022 S/p recent bilateral upper trapezius and right levator scapulae trigger point injections on 03/14/23 They planned on doing MBB and TFE but had not approved; so was not done. History of seizures, depression, back surgery [place] [address] Weber, methadone usage. History of opiate dependence. Diagnosis of depression. History of grave's disease.k [facility] Medical History History of cervical cancer History of blood clots History of seizure Chronic low back pain Anxiety Graves disease 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 Surgical History History of cone biopsy of cervix History of D&C History of nasal surgery History of shoulder surgery History of carpal tunnel surgery History of lumbar surgery Social History Alcohol intake: never Patient Tobacco Use Status: Current everyday Tobacco user Tobacco use type: Cigarette Cigarette Packs Per Day: 0.5 Current occupational status: previously employed Review of Systems Const All systems reviewed & are unremarkable except as noted in HPI and below Physical Exam Constitutional: Patient appears to be in no acute distress, well nourished and well developed. Patient was appropriately conversant and oriented. Good historian. MSK: Inspection reveals appropriate head and neck positioning. No pain with palpation over the neck musculature. Tight trapezius. Cervical ROM was full. No scapular winging. Spurling's sign negative. Bilateral shoulder, elbow and wrist ROM WNL. No ligamentous laxity or crepitance. No increased effusion. No specific abnormalities or instability found on inspection and palpation of the spine and extremities. Strength is 5/5 in all muscle groups tested. No increased tone noted. Neurological: Neurologic examination of the upper and lower extremities was nonfocal with intact sensation, muscle stretch reflexes and without focal motor deficits . Monahan?s negative bilaterally. Babinski was down going bilaterally. Clonus was negative. Gait is non-antalgic without loss of balance. Results Reviewed Results Reviewed: I independently reviewed the results of the following: No significant spinal stenosis seen. Ordering Physician: Holly Tse Date of Service: 03/25/23 Procedure(s): MR cervical spine con Accession Number(s): [id number] cc: Holly Tse~ EXAMINATION: MR CERVICAL SPINE WITHOUT CONTRAST CLINICAL INFORMATION: Spondylosis without myelopathy or radiculopathy. COMPARISON: None available. TECHNIQUE: MRI of the cervical spine was performed using routine sequences without contrast. FINDINGS: The cervical vertebral bodies maintain normal heights and alignment. There is incomplete segmentation of the C3-C4 level with a hypoplastic disc and fusion of the posterior elements. There is moderate disc height loss at C5-C6 and mild disc height loss at C4-C5. No marrow edema is seen. The cord signal appears normal. The imaged intracranial contents and extraspinal soft tissues are unremarkable. SPINAL LEVELS: C2-C3: No posterior disc abnormality. No spinal canal or neural foraminal stenosis. C3-C4: Hypoplastic disc and fused facets. No spinal canal or neural foraminal stenosis. C4-C5: Mild disc osteophyte complex with uncovertebral hypertrophy. Mild to moderate bilateral neural foraminal stenosis. No spinal canal stenosis. C5-C6: Disc osteophyte complex with uncovertebral hypertrophy resulting in severe bilateral neural foraminal stenosis. No spinal canal stenosis. C6-C7: Left foraminal protrusion with uncovertebral hypertrophy resulting in mild to moderate left neural foraminal stenosis. No spinal canal stenosis. C7-T1: No posterior disc abnormality. No spinal canal or neural foraminal stenosis. MR/MR cervical spine wo con IMPRESSION: Multilevel degenerative spondylosis without significant narrowing of the spinal canal. Neural foraminal stenosis appears mild to moderate bilaterally at C4-C5, severe bilaterally at C5-C6, and mild to moderate on the left at C6-C7. I reviewed records from the following: Pain management Assessment & Plan Assessment & Plan (1) Pain of cervical facet joint: Code(s): M54.2 - Cervicalgia Category: Medical (2) Myofascial neck pain: Code(s): M54.2 - Cervicalgia Category: Medical (3) Cervical spondylosis: Code(s): M47.812 - Spondylosis without myelopathy or radiculopathy, cervical region Category: Medical (4) Numbness in both hands: Code(s): R20.0 - Anesthesia of skin Category: Medical Plan Posterior neck pain which I suspect is combination of cervical facet pain and myofascial pain, without signs of cervical radiculopathy or myelopathy. Discussed options of repeating trigger point injections, to be done by me, or referring her back to pain management. She opts for the former. We will schedule. I suspect hand numbness is more peripheral in nature such as CTS. Will schedule for EMG. Assessment and plan discussed with patient, and patient was agreeable. All questions were answered thoroughly. Leticia Beltran MD, NATHAN Board Certified, [place] Board of Physical Medicine and Rehabilitation (ABPMR) Board Certified, [place] Board of Electrodiagnostic Medicine (ABEM) Orders: Orders NE electromyogram (EMG) Today R20.0 - Anesthesia of skin NE nerve conduction velocity Today R20.0 - Anesthesia of skin Coding Level of Care Code New Pt Level 4 (32041) Diagnoses Pain of cervical facet joint M54.2 Myofascial neck pain M54.2 Cervical spondylosis M47.812 Numbness in both hands R20.0
== END 2023-12-14 10:38 | disposition home or self-care (01) ==
LOC: HO.HOS 09:09
PROVIDERS: PCP Internal Medicine; Visit Provider Physical Medicine & Rehabilitation
DX: M54.2 Cervicalgia (principal); M47.812 Spondylosis without myelopathy or radiculopathy, cervical region; R20.0 Anesthesia of skin
CPT/HCPCS: 99204

== ENCOUNTER → 2023-12-14 09:09 | Outpatient (BNVA) | payer OTHER, MEDICAID, SELFPAY | PROVIDERS: PCP Internal Medicine; Visit Provider Physical Medicine & Rehabilitation | DX: M47.812 Spondylosis without myelopathy or radiculopathy, cervical region (principal); M54.2 Cervicalgia; R20.0 Anesthesia of skin | CPT/HCPCS: 99202 ==

== ENCOUNTER 2024-01-11 08:52 | Outpatient (AMB) | payer MEDICAID, SELFPAY ==
[2024-01-11 09:10] VITALS: BMI 28.6
--- NOTE | 2024-01-11 09:10 | A.OFFVIS_ITS ---
Vital Signs 01/11/24 09:10 Height 5 ft 6 in Weight 177 lb BMI 28.6 Intake Visit Reasons: OV- TRIGGER POINT INJ #1 Intake Note: Hien is a 53 year old female who presents today for a trigger point injection. patient reports her pain is at a 8/10 on the pain scale. Allergies No Known Allergies Allergy (Verified 12/14/23 09:38) [facility] Medical History History of cervical cancer History of blood clots History of seizure Chronic low back pain Anxiety Graves disease 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 Surgical History History of cone biopsy of cervix History of D&C History of nasal surgery History of shoulder surgery History of carpal tunnel surgery History of lumbar surgery Social History Alcohol intake: never Patient Tobacco Use Status: Current everyday Tobacco user Tobacco use type: Cigarette Cigarette Packs Per Day: 0.5 Current occupational status: previously employed Physical Exam Vital Signs: BMI result Body Mass Index 28.6 Office Procedures Therapeutic Injection Therapeutic Injection Details: Trigger point injection, right upper trapezius. Conset obtained. Three trigger points palpated on right upper trapezius. 1 ml of 2% Lidocaine injected in each site, total of 3 mL. Patient tolerated procedure well. Post-injection instructions given. 99263-Iooofom Point Injection =/>3 sites All charges added?: Procedure code (CPT) selection complete Assessment & Plan Assessment & Plan (1) Myofascial neck pain: Code(s): M54.2 - Cervicalgia Category: Medical Plan Tolerated procedure well. Assessment and plan discussed with patient, and patient was agreeable. All questions were answered thoroughly. Leticia Beltran MD, NATHAN Board Certified, [place] Board [employer] Physical [employer] and Rehabilitation (ABPMR) Board Certified, [place] Board of Electrodiagnostic Medicine (ABEM) Orders: Orders Trigger Point Injection Today M79.18 - Myalgia, other site Coding Level of Care Code Procedure Only Diagnoses Myofascial neck pain M54.2 CPT Codes Therapeutic Injection - Ther Injection 2: 44868-Ithseua Point Injection =/>3 sites ([id number])
== END 2024-01-11 09:24 | disposition home or self-care (01) ==
PROVIDERS: PCP Internal Medicine; Visit Provider Physical Medicine & Rehabilitation
DX: M54.2 Cervicalgia (principal)
CPT/HCPCS: 20553

== ENCOUNTER → 2024-01-11 08:52 | Outpatient (BNVA) | payer MEDICAID, SELFPAY | PROVIDERS: PCP Internal Medicine; Visit Provider Physical Medicine & Rehabilitation | DX: M54.2 Cervicalgia (principal) | CPT/HCPCS: 20553 ==

== ENCOUNTER 2024-01-17 08:54 | Outpatient (AMB) | payer MEDICAID, SELFPAY ==
--- NOTE | 2024-01-17 08:56 | MHC.OFFVIS ---
Intake Visit Reasons: OV- TRIGGER POINT INJ #2 Intake Note: Hien is a 53 year old female who presents today for a trigger point injection, last injection 01/11/24. Patient reports her last injection didn't give her relief. Patient states that her pain hasn't changed, its still a 03/23. Allergies No Known Allergies Allergy (Verified 01/17/24 09:02) Medication List - Last Reconciled 01/17/24 by Leticia Beltran MD aripiprazole mg PO citalopram 20 mg PO DAILY clonazepam 1 mg PO TID PRN ibuprofen 200 mg PO Q6H PRN levothyroxine 0 mcg PO lidocaine 5% 1 patch topical Q3D methadone 30 mg PO DAILY naproxen 375 mg PO BID PRN HPI Comments Details: No complications from last week's injection. Still the same pain. [facility] Medical History History of cervical cancer History of blood clots History of seizure Chronic low back pain Anxiety Graves disease 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 Surgical History History of cone biopsy of cervix History of D&C History of nasal surgery History of shoulder surgery History of carpal tunnel surgery History of lumbar surgery Social History Alcohol intake: never Patient Tobacco Use Status: Current everyday Tobacco user Tobacco use type: Cigarette Cigarette Packs Per Day: 0.5 Current occupational status: previously employed Office Procedures Therapeutic Injection Therapeutic Injection Details: Trigger point injection, right upper trapezius. Conset obtained. Three trigger points palpated on right upper trapezius. 1 ml of 2% Lidocaine injected in each site, total of 3 mL. Patient tolerated procedure well. Post-injection instructions given. 76546-Tshxlbv Point Injection =/>3 sites All charges added?: Procedure code (CPT) selection complete Assessment & Plan Assessment & Plan (1) Myofascial neck pain: Code(s): M54.2 - Cervicalgia Category: Medical Plan Tolerated trigger point injection #2. Third injection next week. Briefly discussed other options if this would not be beneficial, such as referring back to pain management for cervical facet injections versus trial of botulinum toxin injection. Assessment and plan discussed with patient, and patient was agreeable. All questions were answered thoroughly. Leticia Beltran MD, NATHAN Board Certified, [place] [employer] and [employer] (ABPMR) Board Certified, [place] [employer] (ABEM) Orders: Orders Trigger Point Injection Today M54.2 - Cervicalgia Coding Level of Care Code Procedure Only Diagnoses Myofascial neck pain M54.2 CPT Codes Therapeutic Injection - Ther Injection 2: 12499-Theqxkg Point Injection =/>3 sites ([id number])
== END 2024-01-17 09:12 | disposition home or self-care (01) ==
PROVIDERS: PCP Internal Medicine; Visit Provider Physical Medicine & Rehabilitation
DX: M54.2 Cervicalgia (principal)
CPT/HCPCS: 20553

== ENCOUNTER → 2024-01-17 08:54 | Outpatient (BNVA) | payer MEDICAID, SELFPAY | PROVIDERS: PCP Internal Medicine; Visit Provider Physical Medicine & Rehabilitation | DX: M54.2 Cervicalgia (principal); Z79.891 Long term (current) use of opiate analgesic | CPT/HCPCS: 20553 ==

== ENCOUNTER 2024-01-24 09:01 | Outpatient (AMB) | payer OTHER, MEDICAID, SELFPAY ==
--- NOTE | 2024-01-24 09:04 | A.OFFVIS_ITS ---
Intake Visit Reasons: OV- TRIGGER POINT INJ #3 Intake Note: Hien is a 53 year old female who presents today for a trigger point injection #3, last injection 01/17/24. Pt states she is still having some pain but states the headaches have subsided. Allergies No Known Allergies Allergy (Verified 01/24/24 09:05) HPI Comments Details: Has not had any headaches since last week. Still wore, more lower and left. [facility] Medical History History of cervical cancer History of blood clots History of seizure Chronic low back pain Anxiety Graves disease 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 Surgical History History of cone biopsy of cervix History of D&C History of nasal surgery History of shoulder surgery History of carpal tunnel surgery History of lumbar surgery Social History Alcohol intake: never Patient Tobacco Use Status: Current everyday Tobacco user Tobacco use type: Cigarette Cigarette Packs Per Day: 0.5 Current occupational status: previously employed Office Procedures Therapeutic Injection Therapeutic Injection Details: Trigger point injection, bilateral upper trapezius. Conset obtained. Trigger points palpated, 1 on left, 2 on right upper trapezius. 1 ml of 2% Lidocaine injected in each site, total of 3 mL. Patient tolerated procedure well. Post-injection instructions given. 49872-Jtyxxhk Point Injection =/>3 sites All charges added?: Procedure code (CPT) selection complete Assessment & Plan Assessment & Plan (1) Myofascial neck pain: Code(s): M54.2 - Cervicalgia Category: Medical Plan Tolerated trigger point injection #3. Has not had any headaches since last week. Assessment and plan discussed with patient, and patient was agreeable. All questions were answered thoroughly. Leticia Beltran MD, NATHAN Board Certified, [place] [employer] (ABPMR) Board Certified, [place] [employer] (ABEM) Orders: Orders Trigger Point Injection Today M79.18 - Myalgia, other site Coding Level of Care Code Procedure Only Diagnoses Myofascial neck pain M54.2 CPT Codes Therapeutic Injection - Ther Injection 2: 43245-Wobzlgw Point Injection =/>3 sites ([id number])
== END 2024-01-24 09:32 | disposition home or self-care (01) ==
PROVIDERS: PCP Internal Medicine; Visit Provider Physical Medicine & Rehabilitation
DX: M54.2 Cervicalgia (principal); M25.511 Pain in right shoulder; M25.512 Pain in left shoulder; Z04.2 Encounter for examination and observation following work accident
CPT/HCPCS: 20553

== ENCOUNTER → 2024-01-24 09:01 | Outpatient (BNVA) | payer MEDICAID, SELFPAY | PROVIDERS: PCP Internal Medicine; Visit Provider Physical Medicine & Rehabilitation | DX: M79.18 Myalgia, other site (principal); M54.2 Cervicalgia | CPT/HCPCS: 20553 ==

== ENCOUNTER 2024-02-06 08:46 | Outpatient (REF) | payer MEDICAID, SELFPAY ==
--- NOTE | ~2024-02-06 | XR_ITS ---
EXAMINATION: XR KNEE, RIGHT XR KNEE, LEFT CLINICAL INFORMATION: Right and left knee pain. COMPARISON: None available. TECHNIQUE: AP, lateral, and sunrise views of the right and left knee. FINDINGS: RIGHT KNEE: Moderate medial and patellofemoral compartment joint space narrowing. Tricompartmental marginal osteophytes. No acute fracture or dislocation. No concerning lytic or blastic osseous lesion. Small joint effusion. LEFT KNEE: Moderate medial compartment joint space narrowing. Tricompartmental marginal osteophytes. No acute fracture or dislocation. No concerning lytic or blastic osseous lesion. Small joint effusion. XR/XR knee RT 3V IMPRESSION: RIGHT KNEE: Moderate tricompartmental osteoarthritis. Small joint effusion. LEFT KNEE: Tricompartmental osteoarthritis, most prominent within the medial compartment. Small joint effusion.
--- NOTE | ~2024-02-06 | XR_ITS ---
EXAMINATION: XR KNEE, RIGHT XR KNEE, LEFT CLINICAL INFORMATION: Right and left knee pain. COMPARISON: None available. TECHNIQUE: AP, lateral, and sunrise views of the right and left knee. FINDINGS: RIGHT KNEE: Moderate medial and patellofemoral compartment joint space narrowing. Tricompartmental marginal osteophytes. No acute fracture or dislocation. No concerning lytic or blastic osseous lesion. Small joint effusion. LEFT KNEE: Moderate medial compartment joint space narrowing. Tricompartmental marginal osteophytes. No acute fracture or dislocation. No concerning lytic or blastic osseous lesion. Small joint effusion. XR/XR knee LT 3V IMPRESSION: RIGHT KNEE: Moderate tricompartmental osteoarthritis. Small joint effusion. LEFT KNEE: Tricompartmental osteoarthritis, most prominent within the medial compartment. Small joint effusion.
== END 2024-02-06 08:47 | disposition home or self-care (01) ==
LOC: HO.HOSX 08:46
PROVIDERS: Visit Provider Orthopaedic Surgery
DX: M17.0 Bilateral primary osteoarthritis of knee (principal)
CPT/HCPCS: 20610; 73562; 99212; J1010

== ENCOUNTER 2024-02-06 09:32 | Outpatient (AMB) | payer MEDICAID, SELFPAY ==
--- NOTE | 2024-02-06 09:43 | MHC.OFFVIS ---
Vital Signs 02/06/24 09:50 Height 5 ft 6 in Weight 220 lb BMI 35.5 Intake Visit Reasons: N/P -B/L knee pain-fluid built up Intake Note: Hien is a 53 year old female who presents today for as a new patient with complaints of bilateral knee pain and fluid build up. Patient reports she noticed this start about a year ago followed by numbness and tingling. She wears compression socks for both knees but expresses they make her pain and swelling worse. Both knees have the 10 out of 10 on the pain scale. She has tried ibuprofen with no relief. Lidocaine patches do offer her minimal relief at the time she is using them. She has a history of her knees being aspirated in [facility] about 4 years ago. Its been about 4 years since she has had cortisone injections in both knees and they did give her relief at the time. Patient would like to discuss possible injections today. Denies recent injury to both knees. Allergies No Known Allergies Allergy (Verified 02/06/24 09:51) Medication List - Last Reconciled 02/06/24 by Kayden Bass MD aripiprazole mg PO citalopram 20 mg PO DAILY clonazepam 1 mg PO TID PRN ibuprofen 200 mg PO Q6H PRN levothyroxine 0 mcg PO lidocaine 5% 1 patch topical Q3D methadone 30 mg PO DAILY naproxen 375 mg PO BID PRN nicotine mg transdermal PFSH Medical History History of cervical cancer History of blood clots History of seizure Chronic low back pain Anxiety Graves disease 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 Surgical History History of cone biopsy of cervix History of D&C History of nasal surgery History of shoulder surgery History of carpal tunnel surgery History of lumbar surgery Social History Alcohol intake: never Patient Tobacco Use Status: Current everyday Tobacco user Tobacco use type: Cigarette Cigarette Packs Per Day: 0.5 Current occupational status: previously employed Physical Exam Vital Signs: BMI result Body Mass Index 35.5 Const Other: Well-nourished well-developed very friendly female awake alert and oriented x3 in no acute distress Extrem Other: Bilateral lower extremity examination shows good capillary refill, no skin lesions noted, normal sensation light touch Bilateral knee examination shows minimal effusions, palpable crepitus with range of motion, pain with range of motion, range of motion from -3 degrees to 115 degrees, no instability Office Procedures Joint Injection/Drain Joint Injection/Drain Primary Site: right knee Prep: site was prepped using aseptic technique Injected: 40 mg of, DepoMedrol and 1% plain lidocaine Procedure: The patient tolerated the procedure well Coding 43058 - Large joint Procedure code (CPT) selection complete Joint Injection/Drain Joint Injection/Drain Primary Site: left knee Prep: site was prepped using aseptic technique Injected: 40 mg of, DepoMedrol and 1% plain lidocaine Procedure: The patient tolerated the procedure well Coding 86187 - Large joint Procedure code (CPT) selection complete Results Reviewed Results Reviewed: X-rays of the patient's bilateral knees taken today show moderate joint space narrowing most significant in the medial compartments and patellofemoral joints, subchondral sclerosis, no acute bony abnormalities Assessment & Plan Assessment & Plan (1) Arthritis of left knee: Code(s): M17.12 - Unilateral primary osteoarthritis, left knee Category: Medical (2) Arthritis of right knee: Code(s): M17.11 - Unilateral primary osteoarthritis, right knee Category: Medical Plan Ms. Osman presents with bilateral knee pains due to degenerative joint disease. I had a lengthy discussion with the patient regarding the treatment options. She wishes to hold off on surgery for as long as possible. I agree with this plan. The risks and benefits of bilateral knee cortisone injections were discussed at length with the patient. The patient wished to proceed. She tolerated the injections well. She will continue with her home exercise program. She will contact me prior to her follow-up appointment in 3 months should any questions or concerns arise. Feel free to call me at any time should questions regarding her orthopedic management arise. Thank you very much for asking me to see this very friendly patient. I spent 20 minutes in reviewing the patient's records and imaging studies, seeing the patient and documenting in the medical record. Orders: Orders XR knee LT 3V Today M25.562 - Pain in left knee AMB Joint Injection/Aspiration Today M17.12 - Unilateral primary osteoarthritis, left knee XR knee RT 3V Today M25.561 - Pain in right knee AMB Joint Injection/Aspiration Today M17.11 - Unilateral primary osteoarthritis, right knee Coding Level of Care Code New Pt Level 3 (87592) Diagnoses Arthritis of left knee M17.12 Arthritis of right knee M17.11 CPT Codes Coding - 51578 Large joint: 60650 - Large joint ([id number]) Coding - 92609 Large joint: 22293 - Large joint ([id number])
[2024-02-06 09:50] VITALS: BMI 35.5
== END 2024-02-06 10:22 | disposition home or self-care (01) ==
PROVIDERS: PCP Internal Medicine; Visit Provider Orthopaedic Surgery
DX: M17.0 Bilateral primary osteoarthritis of knee (principal)
CPT/HCPCS: 20610; 99213

== ENCOUNTER 2024-02-28 10:03 | Outpatient (AMB) | payer MEDICAID, SELFPAY ==
--- NOTE | 2024-02-28 10:05 | MHC.OFFVIS ---
Vital Signs 02/28/24 10:06 Height 5 ft 6 in Weight 220 lb BMI 35.5 Intake Visit Reasons: OV- TRIGGER POINT f/u Intake Note: Hien is a 53 year old female who presents to the office today for a 4-6 week trigger point follow up, last injection 01/24/24. Patient reports that she has continued back and neck pain and has had an onset of right hand numbness since the last injection. She has pain wiht daily acitivies and increased pain with things such as sweeping and vacuuming. She explains that she recently got a PCP and has been getting mutiple specialist appointments. She currently has a holter monitor on and has a stress test coming up. Allergies No Known Allergies Allergy (Verified 02/28/24 10:09) Medication List - Last Reconciled 02/28/24 by Leticia Beltran MD aripiprazole mg PO citalopram 20 mg PO DAILY clonazepam 1 mg PO BID PRN ibuprofen 200 mg PO Q6H PRN levothyroxine 0 mcg PO lidocaine 5% 1 patch topical Q3D methadone 30 mg PO DAILY naproxen 375 mg PO BID PRN nicotine mg transdermal HPI Comments Details: First seen 12/14/23 - Constant posterior and right neck pain, going down to back and right arm. Right hand goes numb, after the neck pain. Though would get night time hand numbness bilateral. NO weakness. Good shoulder ROM. Treatment done prior to seeing me. methadone - chronic neck pain, chronic pain last physical therapy - 2022 Was following with Pain Management, saw Holly Tse [facility], S/p recent bilateral upper trapezius and right levator scapulae trigger point injections on 03/14/23. They planned on doing MBB and TFE but [facility] had not approved; so was not done. History of seizures, depression, back surgery [place] [address] Weber, methadone usage. History of opiate dependence. Diagnosis of depression. History of grave's disease. Trigger point injections done right upper trapezius mainly, , 01/16,, 01/24/24. Per patient, it helped in the beginning but temporary only. Continues to have pain that actually comes from lower back that radiates upwards to neck; and also neck pain going down to right arm with numbness on right hand. History of CTS surgery bilateral 8 years ago. Previous MRI cervical spine showed spondylosis with foraminal stenosis C5-6. No significant central stenosis. [facility] Medical History History of cervical cancer History of blood clots History of seizure Chronic low back pain Anxiety Graves disease 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 Surgical History History of cone biopsy of cervix History of D&C History of nasal surgery History of shoulder surgery History of carpal tunnel surgery History of lumbar surgery Social History Alcohol intake: never Patient Tobacco Use Status: Current everyday Tobacco user Tobacco use type: Cigarette Cigarette Packs Per Day: 0.5 Current occupational status: previously employed Physical Exam Vital Signs: BMI result Body Mass Index 35.5 Constitutional: Patient appears to be in no acute distress, well nourished and well developed. Patient was appropriately conversant and oriented. Good historian. MSK: Inspection reveals appropriate head and neck positioning. Tenderness over right trapezius and rhomboids. Cervical ROM was full. No scapular winging. Spurling's sign negative. Carpal compression negative. Bilateral shoulder, elbow and wrist ROM WNL. No ligamentous laxity or crepitance. No increased effusion. Strength is 5/5 in all muscle groups tested. No increased tone noted. Neurological: Neurologic examination of the upper and lower extremities was nonfocal with intact sensation, muscle stretch reflexes and without focal motor deficits . Monahan?s negative bilaterally. Gait is non-antalgic without loss of balance. Results Reviewed Results Reviewed: I independently reviewed the results of the following: No significant spinal stenosis seen. Ordering Physician: Holly Tse Date of Service: 03/25/23 Procedure(s): MR cervical spine con Accession Number(s): [id number] cc: Holly Tse~ EXAMINATION: MR CERVICAL SPINE WITHOUT CONTRAST CLINICAL INFORMATION: Spondylosis without myelopathy or radiculopathy. COMPARISON: None available. TECHNIQUE: MRI of the cervical spine was performed using routine sequences without contrast. FINDINGS: The cervical vertebral bodies maintain normal heights and alignment. There is incomplete segmentation of the C3-C4 level with a hypoplastic disc and fusion of the posterior elements. There is moderate disc height loss at C5-C6 and mild disc height loss at C4-C5. No marrow edema is seen. The cord signal appears normal. The imaged intracranial contents and extraspinal soft tissues are unremarkable. SPINAL LEVELS: C2-C3: No posterior disc abnormality. No spinal canal or neural foraminal stenosis. C3-C4: Hypoplastic disc and fused facets. No spinal canal or neural foraminal stenosis. C4-C5: Mild disc osteophyte complex with uncovertebral hypertrophy. Mild to moderate bilateral neural foraminal stenosis. No spinal canal stenosis. C5-C6: Disc osteophyte complex with uncovertebral hypertrophy resulting in severe bilateral neural foraminal stenosis. No spinal canal stenosis. C6-C7: Left foraminal protrusion with uncovertebral hypertrophy resulting in mild to moderate left neural foraminal stenosis. No spinal canal stenosis. C7-T1: No posterior disc abnormality. No spinal canal or neural foraminal stenosis. MR/MR cervical spine wo con IMPRESSION: Multilevel degenerative spondylosis without significant narrowing of the spinal canal. Neural foraminal stenosis appears mild to moderate bilaterally at C4-C5, severe bilaterally at C5-C6, and mild to moderate on the left at C6-C7. I reviewed records from the following: Pain management Saw ortho recently for knee pain Assessment & Plan Assessment & Plan (1) Cervical radiculitis: Code(s): M54.12 - Radiculopathy, cervical region Category: Medical (2) Numbness of right hand: Code(s): R20.0 - Anesthesia of skin Category: Medical (3) History of carpal tunnel surgery: Comment: (bilateral) Code(s): Z98.890 - Other specified postprocedural states Category: Surgical (4) Myofascial neck pain: Code(s): M54.2 - Cervicalgia Category: Medical Plan Multifactorial right-sided neck pain and hand numbness. MRI does show foraminal stenosis. It may be reasonable to trial cervical transforaminal epidural C5-6. This was previously recommended by pain management. Patient is no longer under worker's compensation and is willing to return back to pain management for the injection. History of bilateral Carpal Tunnel Syndrome. We will repeat EMG right upper extremity to confirm whether or not Carpal Tunnel Syndrome as return, or if symptoms are coming from cervical spine. Continues to have myofascial pain and tightness right upper trapezius and rhomboids, which definitely contributes to overall pain. We have already done 3 trigger point injections. We may consider Botox injection in the future. Assessment and plan discussed with patient, and patient was agreeable. All questions were answered thoroughly. Leticia Beltran MD, NAHTAN Board Certified, [place] [employer] (ABPMR) Board Certified, [place] [employer] (ABEM) Orders: Orders NE nerve conduction velocity Today M54.12 - Radiculopathy, cervical region, R20.0 - Anesthesia of skin, Z98.890 - Other specified postprocedural states NE electromyogram (EMG) Today M54.12 - Radiculopathy, cervical region, R20.0 - Anesthesia of skin, Z98.890 - Other specified postprocedural states Referrals Pain Management Referral M54.12 - Radiculopathy, cervical region, R20.0 - Anesthesia of skin, Z98.890 - Other specified postprocedural states Coding Level of Care Code Est Pt Level 4 (23565) Diagnoses Cervical radiculitis M54.12 Numbness of right hand R20.0 History of carpal tunnel surgery Z98.890 Myofascial neck pain M54.2
[2024-02-28 10:06] VITALS: BMI 35.5
== END 2024-02-28 10:36 | disposition home or self-care (01) ==
PROVIDERS: PCP Internal Medicine; Visit Provider Physical Medicine & Rehabilitation
DX: M54.12 Radiculopathy, cervical region (principal); R20.0 Anesthesia of skin; Z98.890 Other specified postprocedural states; M54.2 Cervicalgia
CPT/HCPCS: 99214

== ENCOUNTER → 2024-02-28 10:03 | Outpatient (BNVA) | payer MEDICAID, SELFPAY | PROVIDERS: PCP Internal Medicine; Visit Provider Physical Medicine & Rehabilitation | DX: M54.12 Radiculopathy, cervical region (principal); R20.0 Anesthesia of skin; M54.2 Cervicalgia; Z98.890 Other specified postprocedural states | CPT/HCPCS: 99212 ==

== ENCOUNTER 2024-03-14 10:23 | Outpatient (AMB) | payer MEDICAID, SELFPAY ==
--- NOTE | 2024-03-14 10:28 | MHC.OFFVIS ---
Vital Signs 03/14/24 10:45 Height 5 ft 6 in Weight 210 lb BMI 33.9 BP 120/68 Blood Pressure Location Rt brachial Position Sitting Pulse 97 Pulse Source Pulse Oximeter Pulse Oximetry (%) 96 Oxygen Delivery Method Room Air Intake Visit Reasons: Cervical Radiculopathy Intake Note: Pain today 02/20 Family Services Coordinator Required: No Accompanied by: Self / Same As Patient Allergies No Known Allergies Allergy (Verified 03/14/24 10:45) HPI Comments Details: Patient presents today for follow up for persistent neck pain with radiation into her right upper extremity and back. Patient was last seen in our office a year ago with plans to treat her axial cervical pain and radicular symptoms. Unfortunately planned cervical medial branch blocks and therapeutic JEOVANY injections were denied by insurance. Patient reports she is no longer under and would like to pursue injections to address her chronic pain. She reports following with [facility] since then and has received multiple trigger point injections which provided her significant relief in chronic headaches but continues to experience significant neck pain with limited range of motion and radiation of pain with numbness and tingling into her right hand and fingers. Denies any recent trauma, injury or falls. Patient is scheduled to undergo EMG/NVC studies tomorrow for right upper extremity. Denies any recent cough, cold, infection, fever, any significant changes in her medical history, medications or recent hospitalizations. PRIOR 04/04/23: Patient presents today for follow up to discuss recent cervical spine MRI results. She reports reduced muscle spasms and stiffness s/p recent bilateral upper trapezius and right levator scapulae trigger point injections on 03/14/23 with 2 weeks of relief. She continues to endorse neck pain with movements with radiation to her both arms and fingers bilaterally, mostly thumb, tips of 2nd and 3rd fingers with intermittent tingling and numbness bilaterally. She is interested to undergo interventional treatments with fluoroscopy guidance to address her axial and radicular cervical spine symptoms. Denies any recent cough, cold, infection, fever or other significant changes in medical history since last office visit. Patient denies any bladder or bowel incontinence or saddle anesthesia. PRIOR: Patient is a pleasant 52 years old female with history of seizures, depression, back surgery [place] [address] Weber, methadone usage presents today with work related injury presents with neck pain that radiates to her arm, worse on the right with constant numbness, tingling, paresthesias and lower back pain with radiation into her right buttock and into her posterior thigh with occasional numbness and tingling but not below knee level. She reports a box and from a 6 feet tall shelf and hit her in the middle posterior neck and glided on her back causing her significant ongoing pain, headaches, muscle spasms, stiffness and decreased functionality with walking and bending but does not necessarily go away with rest. Pain affects her daily functioning, activities, sleep, mood, and social interactions. Physical therapy has provided minimal improvements. 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 Patient has modified her duties at [employer] and has tried to go back at work but notices increased in pain. Denies any fever, shortness of breaths, chest pain, dizziness, gait imbalance, bladder or bowel incontinence or saddle anesthesia. Patient was referred to our office for potential trigger point injections. Onset 11/14/22 Location Mid and lower back, neck and buttocks radiates to right knee Duration Constant pain for past 4 months due to work-related injury Characteristics of symptom or complaint Aching, stabbing, sharp, throbbing, cramping, numbness, tingling, spasming Aggravating or associated factors Movements, walking, bending, lifting Relieving factors Resting, lidocaine patch, NSAIDs Treatment Physical therapy, home program exercises [facility] Medical History Numbness of right hand History of cervical cancer History of blood clots History of seizure Chronic low back pain Anxiety Graves disease 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 Surgical History History of cone biopsy of cervix History of D&C History of nasal surgery History of shoulder surgery History of carpal tunnel surgery History of lumbar surgery Social History Alcohol intake: never Patient Tobacco Use Status: Current everyday Tobacco user Tobacco use type: Cigarette Cigarette Packs Per Day: 0.5 Current occupational status: previously employed Review of Systems Const All systems reviewed & are unremarkable except as noted in HPI and below Physical Exam Vital Signs: Last Vital Signs Pulse 97 03/14/24 10:45 BP 120/68 03/14/24 10:45 Pulse Ox 96 03/14/24 10:45 Oxygen Delivery Method Room Air 03/14/24 10:45 BMI result Body Mass Index 33.9 General: Appears afebrile. Alert and oriented. Mood and affect appropriate. Follows and participates in conversation appropriately. Respiratory effort is unlabored. Able to transition from sit to stand unassisted. Ambulates with bilaterally normal heel strike and toe off. Neck Other: Limited cervical ROM in all planes, worse on the right. Increased pain with cervical extension and flexion. Spurling compression test negative. Elvey's tension test positive on the right, with radiation of pain from neck to wrist with aching and tingling in all fingers on the right. Lhermitte's test was negative. DTR intact, +2 and symmetrical. Patient demonstrated 5/5 motor strength of bilateral upper extremities. 2 + radial pulses. No clonus, negative Jimmie's sign. Neck: Yes no lymphadenopathy, Yes supple, No anterior neck swelling, Yes no JVD and No prominent dorsocervical fat pad Back/Spine/Pelvis Cervical Spine: cervical muscular tenderness, pain with cervical ROM, No Cervical spine scars present, cervical spasm (right), No Cervical spine tenderness and No step off deformity Thoracic/Lumbar Spine: thoracic and lumbar spine normal to inspection, No Thoracic/lumbar spine scar(s), pain with thoraco-lumbar ROM, paraspinal muscle tenderness, No thoracic spinal tenderness and lumbar spinal tenderness at L4 and at L5 Results Reviewed Results Reviewed: MR CERVICAL SPINE WITHOUT CONTRAST 03/25/23 FINDINGS: The cervical vertebral bodies maintain normal heights and alignment. There is incomplete segmentation of the C3-C4 level with a hypoplastic disc and fusion of the posterior elements. There is moderate disc height loss at C5-C6 and mild disc height loss at C4-C5. No marrow edema is seen. The cord signal appears normal. The imaged intracranial contents and extraspinal soft tissues are unremarkable. SPINAL LEVELS: C2-C3: No posterior disc abnormality. No spinal canal or neural foraminal stenosis. C3-C4: Hypoplastic disc and fused facets. No spinal canal or neural foraminal stenosis. C4-C5: Mild disc osteophyte complex with uncovertebral hypertrophy. Mild to moderate bilateral neural foraminal stenosis. No spinal canal stenosis. C5-C6: Disc osteophyte complex with uncovertebral hypertrophy resulting in severe bilateral neural foraminal stenosis. No spinal canal stenosis. C6-C7: Left foraminal protrusion with uncovertebral hypertrophy resulting in mild to moderate left neural foraminal stenosis. No spinal canal stenosis. C7-T1: No posterior disc abnormality. No spinal canal or neural foraminal stenosis. IMPRESSION: Multilevel degenerative spondylosis without significant narrowing of the spinal canal. Neural foraminal stenosis appears mild to moderate bilaterally at C4-C5, severe bilaterally at C5-C6, and mild to moderate on the left at C6-C7. XR THORACIC SPINE, 3 VIEWS XR LUMBAR SPINE, 3 VIEWS 03/06/23 FINDINGS: 5 nonrib-bearing lumbar-type vertebral bodies with suggestion of right L5 hemisacralization. No acute visible fracture or dislocation. Slight levocurvature of the mid lumbar spine. Mild to moderate multilevel degenerative changes disc space narrowing, endplate sclerosis, osteophyte formation, and facet arthropathy. Vertebral body heights and disc spaces are maintained. Posterior elements are intact. Paraspinal soft tissues are unremarkable. Visualized portions of the chest and abdomen are unremarkable. T-shaped IUD noted in the pelvis. IMPRESSION: 1. No acute visible fracture or dislocation. 2. Slight levocurvature of the mid lumbar spine. 3. Mild to moderate multilevel degenerative changes. 4. T-shaped IUD noted in the pelvis. XR CERVICAL SPINE 03/06/23 FINDINGS: No acute visible fracture or dislocation. Multilevel degenerative changes of the cervical spine greatest at C3-C4 with severe disc space narrowing and facet ankylosis. Visualized dens is intact. Vertebral body heights and disc spaces are maintained. Prevertebral soft tissues are unremarkable. Posterior elements are intact. Paraspinal soft tissues are unremarkable. Visualized portions of the upper chest are unremarkable. IMPRESSION: 1. No acute visible fracture or dislocation. 2. Multilevel degenerative changes of the cervical spine greatest at C3-C4 with severe disc space narrowing and facet ankylosis. Assessment & Plan Assessment & Plan (1) Cervical spondylosis: Code(s): M47.812 - Spondylosis without myelopathy or radiculopathy, cervical region Category: Medical (2) Low back pain: Code(s): M54.50 - Low back pain, unspecified Category: Medical (3) Cervical radiculitis: Code(s): M54.12 - Radiculopathy, cervical region Category: Medical (4) Myofascial neck pain: Code(s): M54.2 - Cervicalgia Category: Medical (5) Muscle spasm: Code(s): M62.838 - Other muscle spasm Category: Medical (6) Numbness of right hand: Code(s): R20.0 - Anesthesia of skin Category: Medical Plan Reviewed interventional treatments for cervical axial and right sided radicular pain. Schedule Bilateral Diagnostic C4-C5-C6 MBB with local and fluoroscopy for potential therapeutic injections, peripheral nerve stimulation or cervical medial branch RFA. Expectations, risks and benefits were reviewed. Patient is aware she will be contacted to schedule this procedure. Pending Neurodiagnostic studies on 03/15/24 for right upper extremity numbness and tingling with previous h/o CTS. Cervical spine MRI were reviewed with patient today. Tentatively will plan for Right C6-C7 interlaminar parasagittal JEOVANY. All questions were answered and the patient is in agreement of plan. Follow-up after injections and sooner as needed. Medications: Changed From lidocaine 5% 1 patch topical Q3D M47.812 - Spondylosis without myelopathy or radiculopathy, cervical region, M54.2 - Cervicalgia, M54.50 - Low back pain, unspecified To lidocaine 5% 1 patch topical DAILY 30 days 30 ea 0RF pain M47.812 - Spondylosis without myelopathy or radiculopathy, cervical region, M54.2 - Cervicalgia, M54.50 - Low back pain, unspecified Coding Level of Care Code Est Pt Level 4 (18106) Diagnoses Cervical spondylosis M47.812 Low back pain M54.50 Cervical radiculitis M54.12 Myofascial neck pain M54.2 Muscle spasm M62.838 Numbness of right hand R20.0
[2024-03-14 10:45] VITALS: BP 120/68; PULSE 97; O2SAT 96; BMI 33.9
== END 2024-03-14 11:12 | disposition home or self-care (01) ==
PROVIDERS: PCP Internal Medicine; Visit Provider Nurse Practitioner Family
DX: M47.812 Spondylosis without myelopathy or radiculopathy, cervical region (principal); M54.50 Low back pain, unspecified; M54.12 Radiculopathy, cervical region; M54.2 Cervicalgia; M62.838 Other muscle spasm; R20.0 Anesthesia of skin
CPT/HCPCS: 99214

== ENCOUNTER → 2024-03-14 10:23 | Outpatient (BNVA) | payer MEDICAID, SELFPAY | PROVIDERS: PCP Internal Medicine; Visit Provider Nurse Practitioner Family | DX: M47.22 Other spondylosis with radiculopathy, cervical region (principal); M54.50 Low back pain, unspecified; M62.838 Other muscle spasm; R20.0 Anesthesia of skin | CPT/HCPCS: 99212 ==

== ENCOUNTER 2024-03-15 10:36 | Outpatient (REF) | payer MEDICAID, SELFPAY ==
--- NOTE | 2024-03-15 10:39 | EMG_ITS ---
Chief complaint: Right-sided neck pain Previous carpal tunnel surgery bilateral more than 10 years ago. Reason for referral: Evaluate for radiculopathy versus Carpal Tunnel Syndrome Procedure done: Right upper extremities NCS/EMG Precautions and/or limitations: None The limb temperature was monitored continuously and remained between 32-36 degrees C during the performance of the NCS. Nerve Conduction Studies Anti Sensory Summary Table ?Stim Site NR Onset (ms) Norm Onset (ms) Peak (ms) Norm Peak (ms) O-P Amp (?V) Norm O-P Amp Site1 Site2 Delta-0 (ms) Dist (cm) Steven (m/s) Norm Steven (m/s) Right Median Anti Sensory (2nd Digit) Wrist ? 2.7 3.7 <3.6 29.0 >10 Wrist 2nd Digit 2.7 14.0 52 Right Ulnar Anti Sensory (5th Digit) Wrist ? 2.1 2.7 <3.7 21.2 >15.0 Wrist 5th Digit 2.1 14.0 67 Motor Summary Table ?Stim Site NR Onset (ms) Norm Onset (ms) O-P Amp (mV) Norm O-P Amp iAmp (mV) Amp (1st) (%) Site1 Site2 Delta-0 (ms) Dist (cm) Steven (m/s) Norm Steven (m/s) Right Median Motor (Abd Poll Brev) Wrist ? 3.5 <3.9 8.1 >4.5 9.6 100.0 Elbow Wrist 3.8 19.5 51 >45 Elbow ? 7.3 7.5 8.9 92.6 Right Ulnar Motor (Abd Dig Minimi) Wrist ? 2.6 <3.0 6.7 >5 7.7 100.0 B Elbow Wrist 3.0 19.0 63 >45 B Elbow ? 5.6 6.1 7.4 91.0 A Elbow B Elbow 1.9 10.0 53 >45 A Elbow ? 7.5 5.7 6.9 85.1 Comparison Summary Table ?Stim Site NR Peak (ms) Norm Peak (ms) P-T Amp (?V) Site1 Site2 Delta-P (ms) Norm Delta (ms) Right Median/Radial Dig I Comparison (Digit 1 - 10cm) Median Radial ? 2.8 2.4 <2.9 20.4 0.8 EMG ?Side Muscle Nerve Root Ins Act Fibs Psw Amp Dur Poly Recrt Int Pat Comment Right 1stDorInt Ulnar C8-T1 Nml Nml Nml Nml Nml 0 Nml Complete Right FlexCarRad Median C6-7 Nml Nml Nml Nml Nml 0 Nml Complete Right Biceps Musculocut C5-6 Nml Nml Nml Nml Nml 0 Nml Complete Right Triceps Radial C6-7-8 Nml Nml Nml Nml Nml 0 Nml Complete Right Deltoid Axillary C5-6 Nml Nml Nml Nml Nml 0 Nml Complete Paraspinal EMG ?Side Muscle Nerve Root Ins Act Fibs Psw Comment Right Cervical Upper Rami Nml Nml Nml Right Cervical Mid Rami Nml Nml Nml Right Cervical Lower Rami Nml Nml Nml FINDINGS: Right median sensory nerve showed prolonged peak latency. Interlatency difference between right median and radial sensory nerves was 0.8. All other nerves tested were within normal. Concentric needle EMG was performed in selected muscles of the right upper extremity and cervical paraspinals. Study did not reveal signs of electric abnormalities as shown in the table above. IMPRESSION: 1. This is an abnormal study. 2. There is electrodiagnostic evidence for right mild median neuropathy at the wrist, consistent with carpal tunnel syndrome. 3. There is no electrodiagnostic evidence for ulnar neuropathy, brachial plexopathy, or cervical radiculopathy. CLINICAL COMMENT: Patient does not have the severe burning or pain on right hand, discussed that we will treat Carpal Tunnel Syndrome conservatively for now and observe for any progression. She is now following with pain management for right-sided neck pain, for injections. Thank you for your kind referral. Leticia Beltran MD, NATHAN Board Certified, [place] [employer] and Rehabilitation (ABPMR) Board Certified, [place] Board [employer] Electrodiagnostic Medicine (ABEM) CODIN [id number] [facility]
== END 2024-03-15 10:37 | disposition home or self-care (01) ==
LOC: HO.NEURO 10:36
PROVIDERS: Visit Provider Physical Medicine & Rehabilitation
DX: M54.12 Radiculopathy, cervical region (principal); R20.0 Anesthesia of skin; Z98.890 Other specified postprocedural states
CPT/HCPCS: 95886; 95909

== ENCOUNTER → 2024-03-15 10:39 | Outpatient (BNV) | payer MEDICAID, SELFPAY | PROVIDERS: Visit Provider Physical Medicine & Rehabilitation | DX: G56.01 Carpal tunnel syndrome, right upper limb (principal) | CPT/HCPCS: 95886; 95909 ==

== ENCOUNTER 2024-05-08 09:35 | Outpatient (AMB) | payer MEDICAID, SELFPAY ==
--- NOTE | 2024-05-08 09:43 | MHC.OFFVIS ---
Intake Visit Reasons: O/V B/L knee s/p injection 02/06/24 Intake Note: Hien is a 53 year old female who presents with complaints of mild intermittent discomfort in both of her knees. She denies any locking or giving way. She has tried Tylenol and ibuprofen which gave her fairly good relief. The patient did have cortisone injections given into both of her knees earlier this year which gave her good relief. Allergies No Known Allergies Allergy (Verified 05/08/24 09:47) Medication List - Last Reconciled 05/09/24 by Kayden Bass MD aripiprazole mg PO citalopram 20 mg PO DAILY clonazepam 1 mg PO BID PRN ibuprofen 200 mg PO Q6H PRN levothyroxine 0 mcg PO lidocaine 5% 1 patch topical DAILY 30 days methadone 30 mg PO DAILY naproxen 375 mg PO BID PRN nicotine mg transdermal PFSH Medical History Numbness of right hand History of cervical cancer History of blood clots History of seizure Chronic low back pain Anxiety Graves disease 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 Surgical History History of cone biopsy of cervix History of D&C History of nasal surgery History of shoulder surgery History of carpal tunnel surgery History of lumbar surgery Social History Alcohol intake: never Patient Tobacco Use Status: Current everyday Tobacco user Tobacco use type: Cigarette Cigarette Packs Per Day: 0.5 Current occupational status: previously employed Physical Exam Const Other: Well-nourished well-developed very friendly female awake alert and oriented x3 in no acute distress Extrem Other: Bilateral lower extremity examination shows good capillary refill, no skin lesions noted, normal sensation light touch Bilateral knee examination shows minimal effusions, mild crepitus with range of motion, mild discomfort with range of motion, no instability Assessment & Plan Assessment & Plan (1) Arthritis of right knee: Code(s): M17.11 - Unilateral primary osteoarthritis, right knee Category: Medical (2) Arthritis of left knee: Code(s): M17.12 - Unilateral primary osteoarthritis, left knee Category: Medical Plan Ms. Osman presents with intermittent discomfort in both of her knees due to degenerative joint disease. I had a lengthy discussion with the patient regarding the treatment options. At this point the patient's symptoms are tolerable to her. She will continue with her home exercise program. She will follow up with me on an as-needed basis should her symptoms worsen in any way. Feel free to call me at any time should questions regarding her orthopedic management arise. I spent 22 minutes in reviewing the patient's records and imaging studies, seeing the patient and documenting in the medical record. Coding Level of Care Code Est Pt Level 3 (77315) Complex EM visit Add On G2211 Diagnoses Arthritis of right knee M17.11 Arthritis of left knee M17.12
== END 2024-05-08 10:13 | disposition home or self-care (01) ==
PROVIDERS: PCP Internal Medicine; Visit Provider Orthopaedic Surgery
DX: M17.0 Bilateral primary osteoarthritis of knee (principal)
CPT/HCPCS: 99213

== ENCOUNTER → 2024-05-08 09:35 | Outpatient (BNVA) | payer MEDICAID, SELFPAY | PROVIDERS: PCP Internal Medicine; Visit Provider Orthopaedic Surgery | DX: M17.0 Bilateral primary osteoarthritis of knee (principal) | CPT/HCPCS: 99212 ==

== ENCOUNTER 2024-05-21 06:05 | Outpatient (REF) | payer MEDICAID, SELFPAY | END 2024-05-21 06:06 | disposition home or self-care (01) | LOC: CF 06:05 | PROVIDERS: Visit Provider Anesthesiology | DX: Z13.89 Encounter for screening for other disorder (principal) ==

== ENCOUNTER 2024-07-02 06:13 | Outpatient (REF) | payer MEDICAID, SELFPAY | END 2024-07-02 06:14 | disposition home or self-care (01) | LOC: CF 06:13 | PROVIDERS: Visit Provider Anesthesiology | DX: M47.812 Spondylosis without myelopathy or radiculopathy, cervical region (principal) | CPT/HCPCS: 64490; 64491; J2003; J2795; J3301; Q9967 ==

== ENCOUNTER 2024-07-02 09:53 | Outpatient (AMB) | payer MEDICAID, SELFPAY ==
--- NOTE | 2024-07-02 09:57 | MHC.OFFVIS ---
Vital Signs 07/02/24 10:36 07/02/24 10:38 Height 5 ft 6 in 5 ft 6 in Weight 210 lb 210 lb BMI 33.9 33.9 BP 109/67 124/60 Blood Pressure Location Lt brachial Lt brachial Position Sitting Sitting Respiration 16 16 Pulse 108 H 100 Pulse Source Pulse Oximeter Pulse Oximeter Pulse Oximetry (%) 97 98 Oxygen Delivery Method Room Air Room Air Comment pre-op post-op Intake Visit Reasons: BILATERAL DIAGNOSTIC C4, C5, C6 MBB/ATIVAN REQ Allergies No Known Allergies Allergy (Verified 07/02/24 10:39) PFSH Medical History Numbness of right hand History of cervical cancer History of blood clots History of seizure Chronic low back pain Anxiety Graves disease 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 Surgical History History of cone biopsy of cervix History of D&C History of nasal surgery History of shoulder surgery History of carpal tunnel surgery History of lumbar surgery Social History Alcohol intake: never Patient Tobacco Use Status: Current everyday Tobacco user Tobacco use type: Cigarette Cigarette Packs Per Day: 0.5 Current occupational status: previously employed Physical Exam Vital Signs: Last Vital Signs Pulse 100 07/02/24 10:38 Resp 16 07/02/24 10:38 BP 124/60 07/02/24 10:38 Pulse Ox 98 07/02/24 10:38 Oxygen Delivery Method Room Air 07/02/24 10:38 BMI result Body Mass Index 33.9 Assessment & Plan Assessment & Plan (1) Spondylosis of cervical region without myelopathy or radiculopathy: Code(s): M47.812 - Spondylosis without myelopathy or radiculopathy, cervical region Category: Medical Plan Bilateral Diagnostic C4-C5-C6 MBB. Informed consent was obtained before the procedure were risks benefits and alternatives were carefully explained to the patient. All questions were answered to patient's satisfaction. Patient came to the operating room and positioned prone on the operating table. Time-out was performed delineating name and date of of the patient, patient's allergy and nature of the procedure. The posterior neck and upper back were prepped with ChloraPrep and draped with sterile utility towels. C-arm was brought over the operating field and sq picture of patient's cervical spine was demonstrated on the screen. Bilateral Lateral masses of C4-C5 and C6 vertebras were chosen as the target of the injections. The waistline of all the lateral masses were chosen as the end point of the needle advancement. After that projection of the point of interest to the skin was injected with small amount of lidocaine 2% mixed with Decadron 0.5% one-to-one. After that three 22 gauge 3& 1/2 inch long spinal needles were driven to were the point of interest in tunnel vision fashion. When needle gently contacted the bones injection of the contrast was performed. After that injection of the diagnostic medication comprising of ropivacaine 0.5% no more than 1 mL was injected into each needle positioned. Upon completion of the injections the needles were withdrawn and sterile bandaids were applied. The patient tolerated procedure well . Orders: Orders FL guidance in treatment room Today M47.812 - Spondylosis without myelopathy or radiculopathy, cervical region Medications: New lorazepam (Ativan) Take 30 minutes prior to arrival to procedure 1 mg PO ONCE 1 tab 0RF anxiety Coding Level of Care Code Procedure Only Diagnoses Spondylosis of cervical region without myelopathy or radiculopathy M47.812
[2024-07-02 10:36] VITALS: BP 109/67; PULSE 108; RESP 16; O2SAT 97; BMI 33.9
[2024-07-02 10:38] VITALS: BP 124/60; PULSE 100; RESP 16; O2SAT 98; BMI 33.9
== END 2024-07-02 10:47 | disposition home or self-care (01) ==
LOC: HO.PMCPRC 09:53
PROVIDERS: PCP Internal Medicine; Visit Provider Anesthesiology
DX: M47.812 Spondylosis without myelopathy or radiculopathy, cervical region (principal)
CPT/HCPCS: 64490; 64491

== ENCOUNTER 2024-07-08 09:39 | Outpatient (AMB) | payer MEDICAID, SELFPAY ==
--- NOTE | 2024-07-08 09:41 | MHC.OFFVIS ---
Vital Signs 07/08/24 09:44 Height 5 ft 6 in Weight 185 lb BMI 29.9 BP 127/60 Blood Pressure Location Rt brachial Position Sitting Pulse 132 H Pulse Source Pulse Oximeter Pulse Oximetry (%) 97 Oxygen Delivery Method Room Air Intake Visit Reasons: BILATERAL DIAGNOSTIC C4, C5, C6 MBB Intake Note: Pain today 11/21 Radiator Core Tester Required: No Accompanied by: Self / Same As Patient Allergies No Known Allergies Allergy (Verified 07/08/24 09:46) HPI Comments Details: Patient presents today to assess response to bilateral diagnostic C4-C5 C6 MBB on 07/02/[address] King. Patient reports 80% pain relief for 6 hours since procedure with significant improvement in her range of motion, sleep, daily activities and functioning and quality of life. She continues to report ongoing 60% pain relief since diagnostic injections and would like to proceed with therapeutic injections as next steps. She declined Sprint PNS trial as she lives alone and believes this will not be practical to care on her own. Patient will consider cervical medial branch RFA in the future. She completed neurodiagnostic studies for right upper extremity which were positive for mild right CTS with prior history of bilateral CTS release. She request referral to hand specialist for this. Denies any recent cough, cold, infection, fever, any significant changes in her medical history, medications or recent hospitalizations. Past Procedures: 07/02/24: Bilateral diagnostic C4-C5-C6 MBB-80% pain relief for 6 hours, ongoing 60% pain relief PRIOR: Patient is a pleasant 52 years old female with history of seizures, depression, back surgery [place] [address] Weber, methadone usage presents today with work related injury presents with neck pain that radiates to her arm, worse on the right with constant numbness, tingling, paresthesias and lower back pain with radiation into her right buttock and into her posterior thigh with occasional numbness and tingling but not below knee level. She reports a box and from a 6 feet tall shelf and hit her in the middle posterior neck and glided on her back causing her significant ongoing pain, headaches, muscle spasms, stiffness and decreased functionality with walking and bending but does not necessarily go away with rest. Pain affects her daily functioning, activities, sleep, mood, and social interactions. Physical therapy has provided minimal improvements. 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 Patient has modified her duties at [employer] and has tried to go back at work but notices increased in pain. Denies any fever, shortness of breaths, chest pain, dizziness, gait imbalance, bladder or bowel incontinence or saddle anesthesia. Patient was referred to our office for potential trigger point injections. Onset 11/14/22 Location Mid and lower back, neck and buttocks radiates to right knee Duration Constant pain for past 4 months due to work-related injury Characteristics of symptom or complaint Aching, stabbing, sharp, throbbing, cramping, numbness, tingling, spasming Aggravating or associated factors Movements, walking, bending, lifting Relieving factors Resting, lidocaine patch, NSAIDs Treatment Physical therapy, home program exercises [facility] Medical History Numbness of right hand History of cervical cancer History of blood clots History of seizure Chronic low back pain Anxiety Graves disease 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 Surgical History History of cone biopsy of cervix History of D&C History of nasal surgery History of shoulder surgery History of carpal tunnel surgery History of lumbar surgery Social History Alcohol intake: never Patient Tobacco Use Status: Current everyday Tobacco user Tobacco use type: Cigarette Cigarette Packs Per Day: 0.5 Current occupational status: previously employed Review of Systems Const All systems reviewed & are unremarkable except as noted in HPI and below Physical Exam Vital Signs: Last Vital Signs Pulse 132 H 07/08/24 09:44 BP 127/60 07/08/24 09:44 Pulse Ox 97 07/08/24 09:44 Oxygen Delivery Method Room Air 07/08/24 09:44 BMI result Body Mass Index 29.9 General: Appears afebrile. Alert and oriented. Mood and affect appropriate. Follows and participates in conversation appropriately. Respiratory effort is unlabored. Able to transition from sit to stand unassisted. Ambulates with bilaterally normal heel strike and toe off. Neck Other: Limited cervical ROM in all planes, worse on the right. Mild pain with cervical extension. Spurling compression test negative. Elvey's tension test positive on the right, with radiation of pain from neck to wrist with aching and tingling in all fingers on the right. Denies burning pain in right hand or fingers. Lhermitte's test was negative. DTR intact, +2 and symmetrical. Patient demonstrated 5/5 motor strength of bilateral upper extremities. 2 + radial pulses. No clonus, negative Jimmie's sign. Neck: Yes no lymphadenopathy, Yes supple, No anterior neck swelling, Yes no JVD and No prominent dorsocervical fat pad Back/Spine/Pelvis Cervical Spine: cervical muscular tenderness (right>left), pain with cervical ROM (mild), No Cervical spine scars present, No Cervical spine tenderness and No step off deformity Thoracic/Lumbar Spine: thoracic and lumbar spine normal to inspection, No Thoracic/lumbar spine scar(s), pain with thoraco-lumbar ROM, No thoracic spinal tenderness and lumbar spinal tenderness at L4 and at L5 Results Reviewed Results Reviewed: NE electromyogram (EMG); NE nerve conduction velocity 03/15/24 FINDINGS: Right median sensory nerve showed prolonged peak latency. Interlatency difference between right median and radial sensory nerves was 0.8. All other nerves tested were within normal. Concentric needle EMG was performed in selected muscles of the right upper extremity and cervical paraspinals. Study did not reveal signs of electric abnormalities as shown in the table above. IMPRESSION: 1. This is an abnormal study. 2. There is electrodiagnostic evidence for right mild median neuropathy at the wrist, consistent with carpal tunnel syndrome. 3. There is no electrodiagnostic evidence for ulnar neuropathy, brachial plexopathy, or cervical radiculopathy. MR CERVICAL SPINE WITHOUT CONTRAST 03/25/23 FINDINGS: The cervical vertebral bodies maintain normal heights and alignment. There is incomplete segmentation of the C3-C4 level with a hypoplastic disc and fusion of the posterior elements. There is moderate disc height loss at C5-C6 and mild disc height loss at C4-C5. No marrow edema is seen. The cord signal appears normal. The imaged intracranial contents and extraspinal soft tissues are unremarkable. SPINAL LEVELS: C2-C3: No posterior disc abnormality. No spinal canal or neural foraminal stenosis. C3-C4: Hypoplastic disc and fused facets. No spinal canal or neural foraminal stenosis. C4-C5: Mild disc osteophyte complex with uncovertebral hypertrophy. Mild to moderate bilateral neural foraminal stenosis. No spinal canal stenosis. C5-C6: Disc osteophyte complex with uncovertebral hypertrophy resulting in severe bilateral neural foraminal stenosis. No spinal canal stenosis. C6-C7: Left foraminal protrusion with uncovertebral hypertrophy resulting in mild to moderate left neural foraminal stenosis. No spinal canal stenosis. C7-T1: No posterior disc abnormality. No spinal canal or neural foraminal stenosis. IMPRESSION: Multilevel degenerative spondylosis without significant narrowing of the spinal canal. Neural foraminal stenosis appears mild to moderate bilaterally at C4-C5, severe bilaterally at C5-C6, and mild to moderate on the left at C6-C7. XR THORACIC SPINE, 3 VIEWS XR LUMBAR SPINE, 3 VIEWS 03/06/23 FINDINGS: 5 nonrib-bearing lumbar-type vertebral bodies with suggestion of right L5 hemisacralization. No acute visible fracture or dislocation. Slight levocurvature of the mid lumbar spine. Mild to moderate multilevel degenerative changes disc space narrowing, endplate sclerosis, osteophyte formation, and facet arthropathy. Vertebral body heights and disc spaces are maintained. Posterior elements are intact. Paraspinal soft tissues are unremarkable. Visualized portions of the chest and abdomen are unremarkable. T-shaped IUD noted in the pelvis. IMPRESSION: 1. No acute visible fracture or dislocation. 2. Slight levocurvature of the mid lumbar spine. 3. Mild to moderate multilevel degenerative changes. 4. T-shaped IUD noted in the pelvis. XR CERVICAL SPINE 03/06/23 FINDINGS: No acute visible fracture or dislocation. Multilevel degenerative changes of the cervical spine greatest at C3-C4 with severe disc space narrowing and facet ankylosis. Visualized dens is intact. Vertebral body heights and disc spaces are maintained. Prevertebral soft tissues are unremarkable. Posterior elements are intact. Paraspinal soft tissues are unremarkable. Visualized portions of the upper chest are unremarkable. IMPRESSION: 1. No acute visible fracture or dislocation. 2. Multilevel degenerative changes of the cervical spine greatest at C3-C4 with severe disc space narrowing and facet ankylosis. Assessment & Plan Assessment & Plan (1) History of carpal tunnel surgery: Comment: (bilateral) Code(s): Z98.890 - Other specified postprocedural states Category: Surgical (2) Right carpal tunnel syndrome: Code(s): G56.01 - Carpal tunnel syndrome, right upper limb Category: Medical (3) Cervical spondylosis: Code(s): M47.812 - Spondylosis without myelopathy or radiculopathy, cervical region Category: Medical (4) Myofascial neck pain: Code(s): M54.2 - Cervicalgia Category: Medical Plan Patient is status post Bilateral diagnostic cervical medial branch blocks with 80% pain relief for 6 hours and ongoing 60% pain relief with improvement in her daily activities and functioning, cervical ROM and sleep. She would like to proceed with therapeutic injections as next steps. She declined Sprint PNS trial given her living situation. We also reviewed cervical medial branch RFA. Schedule Bilateral Diagnostic C4-C5-C6 MBB with local and fluoroscopy. Expectations, risks and benefits were reviewed. Patient is aware she will be contacted to schedule this procedure. Hand Specialist Referral for mild right CTS with prior history of bilateral carpal tunnel release surgery. Recent EMG was reviewed with patient today. All questions were answered and the patient is in agreement of plan. Follow-up after injections and sooner as needed. Orders: Referrals Hand Surgery Referral G56.01 - Carpal tunnel syndrome, right upper limb, Z98.890 - Other specified postprocedural states Coding Level of Care Code Est Pt Level 3 (35119) Complex EM visit Add On G2211 Diagnoses History of carpal tunnel surgery Z98.890 Right carpal tunnel syndrome G56.01 Cervical spondylosis M47.812 Myofascial neck pain M54.2
[2024-07-08 09:44] VITALS: BP 127/60; PULSE 132; O2SAT 97; BMI 29.9
== END 2024-07-08 09:56 | disposition home or self-care (01) ==
PROVIDERS: PCP Internal Medicine; Visit Provider Nurse Practitioner Family
DX: Z98.890 Other specified postprocedural states (principal); G56.01 Carpal tunnel syndrome, right upper limb; M47.812 Spondylosis without myelopathy or radiculopathy, cervical region; M54.2 Cervicalgia
CPT/HCPCS: 99213

== ENCOUNTER → 2024-07-08 09:39 | Outpatient (BNVA) | payer MEDICAID, SELFPAY | PROVIDERS: PCP Internal Medicine; Visit Provider Nurse Practitioner Family | DX: M47.812 Spondylosis without myelopathy or radiculopathy, cervical region (principal); M54.2 Cervicalgia; G56.01 Carpal tunnel syndrome, right upper limb; Z98.890 Other specified postprocedural states; Z79.891 Long term (current) use of opiate analgesic | CPT/HCPCS: 99212 ==

== ENCOUNTER 2024-09-24 06:25 | Outpatient (REF) | payer MEDICAID, SELFPAY ==
--- NOTE | ~2024-09-24 | FL_ITS ---
EXAMINATION: FL GUIDANCE ONLY HISTORY: M47.812 - Spondylosis without myelopathy or radiculopathy, cervical region COMPARISON: None available. TECHNIQUE: Fluoroscopy time: 0.6 minutes. Cumulative Dose: 3.02 mGy. DAP: 0.0524 mGym2 Images: 6. FINDINGS: Images of the neck in the AP projection demonstrate needles and contrast material within the neck bilaterally. FL/FL guidance in treatment room IMPRESSION: Fluoroscopy during procedure. Please see procedure report for additional information. Electronically signed by: Gilbert Allen MD 09/24/2024 01:07 PM TIFFANIE RICHARDSON
--- OUTSIDE RECORDS SUMMARY | 2024-09-24 06:27 | XMS_ITS | Clinical Summary ---
Author Organization [facility] Address [address] [place] [address] Care Team Providers Care Jail Manager Name Role Phone Francesca Good MD Primary Care Provider [phone] Allergies No known active allergies Medications Medication Sig Dispensed Refills Start Date End Date Status clonazePAM (KlonoPIN) 0.5 MG tablet Take 0.5 mg by mouth 3 (three) times a day as needed. 0 08/22/2020 Active levothyroxine (SYNTHROID, LEVOXYL) tablet 137 mcg Take 137 mcg by mouth daily. 0 09/02/2020 Active OLANZapine (ZyPREXA) 2.5 MG tablet Take 2.5 mg by mouth every night at bedtime. 0 09/04/2020 Active traZODone (DESYREL) 100 MG tablet Take 50 mg by mouth every night at bedtime as needed. 0 07/02/2020 Active methadone (METHADOSE) 40 MG disintegrating tablet Take 40 mg by mouth every 6 (six) hours as needed for pain. 0 Active citalopram (CeleXA) 20 MG tablet Take 20 mg by mouth daily. 0 11/17/2020 Active fluticasone (FLONASE) 50 MCG/ACT nasal spray INHALE 2 SPRAYS BY NASAL ROUTE DAILY FOR 30 DAYS 0 11/16/2020 Active levETIRAcetam (KEPPRA) 500 MG tablet Take 500 mg by mouth 2 (two) times a day. 0 10/20/2020 Active ALPRAZolam (XANAX) 1 MG tablet TAKE 1 TABLET BY MOUTH THREE TIMES DAILY NEEDED FOR ANXIETY/PANIC 0 12/31/2021 Active divalproex (DEPAKOTE) 250 MG 24 hr tablet TAKE 3 TABLETS BY MOUTH DAILY X90 DAYS 0 03/23/2022 Active Social History Tobacco Use Types Packs/Day Years Used Date Smoking Tobacco: Never Assessed Sex and Gender Information Value Date Recorded Sex Assigned at Female 09/10/2020 10:56 AM EST Gender Identity Female 09/10/2020 10:56 AM EST Sexual Orientation Not on file Job Start Date Occupation Industry Not on file Not on file Not on file Last Filed Vital Signs Vital Sign Reading Time Taken Comments Blood Pressure - - Pulse - - Temperature - - Respiratory Rate - - Oxygen Saturation - - Inhaled Oxygen Concentration - - Weight 72.6 kg (160 lb) 01/27/2022 1:31 PM EDT Height 167.6 cm (5' 6 ) 01/27/2022 1:31 PM EDT Body Mass Index 25.82 01/27/2022 1:31 PM EDT Plan of Treatment Health Maintenance Due Date Last Done Comments Hepatitis B Vaccines (1 of 3 - 3-dose series) 1970 Hepatitis C Screening 1970 COVID-19 Vaccine (#1) 1970 Depression Screening 1982 BMI Counseling 1988 Preventative Health Evaluation 1988 DTap / Tdap / Td (1 - Tdap) 1989 Cervical Cancer Screening (P ap Smear) 1991 Colon Cancer Screening (Colonoscopy) 2015 Breast Cancer Screening (Mammogram) 2020 Shingrix-Zoster Vaccine (1 of 2) 2020 Influenza Vaccine (#1) 2024 Pneumococcal Vaccine Aged Out No long er eligible based on patient's age to complete this topic RSV Ped < 20 months Aged Out No longe r eligible based on patient's age to complete this topic Insurance Payer Benefit Plan / Group Subscriber ID Effective Dates Phone Address [facility] Specialist [employer] [facility] HAS [id number] 2020-Present [address] [facility] [address] [place] [address] [facility] [employer] [id number] 2020-Alyson [address]OUGH [address] [place] [address] Care Teams Jail Manager Relationship Specialty Start Date End Date Francesca Good MD PCP - General Internal Medicine 01/27/22
== END 2024-09-24 06:26 | disposition home or self-care (01) ==
LOC: CF 06:25
PROVIDERS: Visit Provider Anesthesiology
DX: M47.812 Spondylosis without myelopathy or radiculopathy, cervical region (principal)
CPT/HCPCS: 64490; 64491; J2003; J2795; J3301; Q9967

== ENCOUNTER 2024-10-14 10:58 | Outpatient (AMB) | payer MEDICAID, SELFPAY ==
--- NOTE | 2024-10-14 10:59 | MHC.OFFVIS ---
Vital Signs 10/14/24 11:05 Height 5 ft 6 in Weight 201 lb 6 oz BMI 32.5 BP 139/65 Blood Pressure Location Rt brachial Position Sitting Pulse 123 H Pulse Source Pulse Oximeter Pulse Oximetry (%) 96 Oxygen Delivery Method Room Air Intake Visit Reasons: BILATERAL THERAPEUTIC C4, C5, C6 MBB Intake Note: Pain today 02/20 Collision Repair Technician Required: No Accompanied by: Self / Same As Patient Allergies No Known Allergies Allergy (Verified 10/14/24 11:06) HPI Comments Details: Patient presents today to assess response to bilateral therapeutic C4-C5 C6 MBB on 09/24/[address] King. Patient reports 80% pain relief for first week after procedure and ongoing 60% pain relief with increased ROM and no pain today with cervical extension. Lateral rotations to each side and bending reproduce mild pain. She also reports bilateral shoulder pain, worse on the right side with difficulty with overhead reaching activities or reaching her backside pocket. Patient reports recent neck injections provide her partial improvement in her range of motion, sleep, daily activities and functioning and quality of life. She is interested in Sprint PNS trial for a longer term pain relief. Denies any recent cough, cold, infection, fever, any significant changes in her medical history, medications or recent hospitalizations. Past Procedures: 09/24/24: Bilateral therapeutic C4-C5-C6 MBB-80% pain relief for 1 week, ongoing 60% pain relief 07/02/24: Bilateral diagnostic C4-C5-C6 MBB-80% pain relief for 6 hours, ongoing 60% pain relief PRIOR: Patient is a pleasant 52 years old female with history of seizures, depression, back surgery [place] [address] Weber, methadone usage presents today with work related injury presents with neck pain that radiates to her arm, worse on the right with constant numbness, tingling, paresthesias and lower back pain with radiation into her right buttock and into her posterior thigh with occasional numbness and tingling but not below knee level. She reports a box and from a 6 feet tall shelf and hit her in the middle posterior neck and glided on her back causing her significant ongoing pain, headaches, muscle spasms, stiffness and decreased functionality with walking and bending but does not necessarily go away with rest. Pain affects her daily functioning, activities, sleep, mood, and social interactions. Physical therapy has provided minimal improvements. 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 Patient has modified her duties at [employer] and has tried to go back at work but notices increased in pain. Denies any fever, shortness of breaths, chest pain, dizziness, gait imbalance, bladder or bowel incontinence or saddle anesthesia. Patient was referred to our office for potential trigger point injections. Onset 11/14/22 Location Mid and lower back, neck and buttocks radiates to right knee Duration Constant pain for past 4 months due to work-related injury Characteristics of symptom or complaint Aching, stabbing, sharp, throbbing, cramping, numbness, tingling, spasming Aggravating or associated factors Movements, walking, bending, lifting Relieving factors Resting, lidocaine patch, NSAIDs Treatment Physical therapy, home program exercises [facility] Medical History Numbness of right hand History of cervical cancer History of blood clots History of seizure Chronic low back pain Anxiety Graves disease 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 Surgical History History of cone biopsy of cervix History of D&C History of nasal surgery History of shoulder surgery History of carpal tunnel surgery History of lumbar surgery Social History Alcohol intake: never Patient Tobacco Use Status: Current everyday Tobacco user Tobacco use type: Cigarette Cigarette Packs Per Day: 0.5 Current occupational status: previously employed Review of Systems Const All systems reviewed & are unremarkable except as noted in HPI and below Physical Exam Vital Signs: Last Vital Signs Pulse 123 H 10/14/24 11:05 BP 139/65 10/14/24 11:05 Pulse Ox 96 10/14/24 11:05 Oxygen Delivery Method Room Air 10/14/24 11:05 BMI result Body Mass Index 32.5 General: Appears afebrile. Alert and oriented. Mood and affect appropriate. Follows and participates in conversation appropriately. Respiratory effort is unlabored. Able to transition from sit to stand unassisted. Ambulates with bilaterally normal heel strike and toe off. Neck Other: Limited cervical ROM in all planes, worse on the right. Mild pain with cervical extension. Spurling compression test negative. Elvey's tension test positive on the right, with radiation of pain from neck to wrist with aching and tingling in all fingers on the right. Denies burning pain in right hand or fingers. Lhermitte's test was negative. DTR intact, +2 and symmetrical. Patient demonstrated 5/5 motor strength of bilateral upper extremities. 2 + radial pulses. No clonus, negative Jimmie's sign. Neck: Yes no lymphadenopathy, Yes supple, No anterior neck swelling, Yes no JVD and No prominent dorsocervical fat pad Back/Spine/Pelvis Cervical Spine: cervical muscular tenderness (right>left), pain with cervical ROM (lateral rotations and bending), No Cervical spine scars present, No Cervical spine tenderness and No step off deformity Thoracic/Lumbar Spine: thoracic and lumbar spine normal to inspection, No Thoracic/lumbar spine scar(s), thoraco-lumbar ROM limited, No thoracic spinal tenderness and lumbar spinal tenderness at L4 and at L5 Extrem General: Yes capillary refill normal, Yes no clubbing, cyanosis or edema and Yes no calf tenderness Right upper extremity: shoulder/upper arm (Limited ROM with I/E rotations.) Details: normal to inspection, tenderness Location: of the A-C joint and over the subacromial bursa and crepitus; no swelling, no ecchymosis and no unusual warmth Left upper extremity: shoulder/upper arm (Preserved but painful ROM on the left) Details: inspection abnormal, tenderness Location: of the A-C joint and over the subacromial bursa and crepitus; no swelling, no ecchymosis and no unsual warmth Results Reviewed Results Reviewed: NE electromyogram (EMG); NE nerve conduction velocity 03/15/24 FINDINGS: Right median sensory nerve showed prolonged peak latency. Interlatency difference between right median and radial sensory nerves was 0.8. All other nerves tested were within normal. Concentric needle EMG was performed in selected muscles of the right upper extremity and cervical paraspinals. Study did not reveal signs of electric abnormalities as shown in the table above. IMPRESSION: 1. This is an abnormal study. 2. There is electrodiagnostic evidence for right mild median neuropathy at the wrist, consistent with carpal tunnel syndrome. 3. There is no electrodiagnostic evidence for ulnar neuropathy, brachial plexopathy, or cervical radiculopathy. MR CERVICAL SPINE WITHOUT CONTRAST 03/25/23 FINDINGS: The cervical vertebral bodies maintain normal heights and alignment. There is incomplete segmentation of the C3-C4 level with a hypoplastic disc and fusion of the posterior elements. There is moderate disc height loss at C5-C6 and mild disc height loss at C4-C5. No marrow edema is seen. The cord signal appears normal. The imaged intracranial contents and extraspinal soft tissues are unremarkable. SPINAL LEVELS: C2-C3: No posterior disc abnormality. No spinal canal or neural foraminal stenosis. C3-C4: Hypoplastic disc and fused facets. No spinal canal or neural foraminal stenosis. C4-C5: Mild disc osteophyte complex with uncovertebral hypertrophy. Mild to moderate bilateral neural foraminal stenosis. No spinal canal stenosis. C5-C6: Disc osteophyte complex with uncovertebral hypertrophy resulting in severe bilateral neural foraminal stenosis. No spinal canal stenosis. C6-C7: Left foraminal protrusion with uncovertebral hypertrophy resulting in mild to moderate left neural foraminal stenosis. No spinal canal stenosis. C7-T1: No posterior disc abnormality. No spinal canal or neural foraminal stenosis. IMPRESSION: Multilevel degenerative spondylosis without significant narrowing of the spinal canal. Neural foraminal stenosis appears mild to moderate bilaterally at C4-C5, severe bilaterally at C5-C6, and mild to moderate on the left at C6-C7. XR THORACIC SPINE, 3 VIEWS XR LUMBAR SPINE, 3 VIEWS 03/06/23 FINDINGS: 5 nonrib-bearing lumbar-type vertebral bodies with suggestion of right L5 hemisacralization. No acute visible fracture or dislocation. Slight levocurvature of the mid lumbar spine. Mild to moderate multilevel degenerative changes disc space narrowing, endplate sclerosis, osteophyte formation, and facet arthropathy. Vertebral body heights and disc spaces are maintained. Posterior elements are intact. Paraspinal soft tissues are unremarkable. Visualized portions of the chest and abdomen are unremarkable. T-shaped IUD noted in the pelvis. IMPRESSION: 1. No acute visible fracture or dislocation. 2. Slight levocurvature of the mid lumbar spine. 3. Mild to moderate multilevel degenerative changes. 4. T-shaped IUD noted in the pelvis. XR CERVICAL SPINE 03/06/23 FINDINGS: No acute visible fracture or dislocation. Multilevel degenerative changes of the cervical spine greatest at C3-C4 with severe disc space narrowing and facet ankylosis. Visualized dens is intact. Vertebral body heights and disc spaces are maintained. Prevertebral soft tissues are unremarkable. Posterior elements are intact. Paraspinal soft tissues are unremarkable. Visualized portions of the upper chest are unremarkable. IMPRESSION: 1. No acute visible fracture or dislocation. 2. Multilevel degenerative changes of the cervical spine greatest at C3-C4 with severe disc space narrowing and facet ankylosis. Assessment & Plan Assessment & Plan (1) Cervical spondylosis: Code(s): M47.812 - Spondylosis without myelopathy or radiculopathy, cervical region Category: Medical (2) Myofascial neck pain: Code(s): M54.2 - Cervicalgia Category: Medical (3) Bilateral shoulder pain: Code(s): M25.511 - Pain in right shoulder; M25.512 - Pain in left shoulder Category: Medical Plan Patient is one month status post bilateral therapeutic cervical medial branch blocks with 80% pain relief for first week and ongoing 60% pain relief with partial improvement in her daily activities and functioning. She is interested to proceed with Bilateral C4 medial branch Sprint PNS trial with local and fluoroscopy as next steps, starting with right side. Patient prefers dressing changes in the office. We also reviewed cervical medial branch RFA. Bilateral shoulder xray to assess degree of arthritis. Recommend PT for shoulder pain. All questions were answered and the patient is in agreement of plan. Follow-up after Sprint placement and sooner as needed. Orders: Orders XR shoulder RT min 2V Today M25.511 - Pain in right shoulder, M25.512 - Pain in left shoulder XR shoulder LT min 2V Today M25.511 - Pain in right shoulder, M25.512 - Pain in left shoulder Coding Level of Care Code Est Pt Level 4 (78561) Complex EM visit Add On G2211 Diagnoses Cervical spondylosis M47.812 Myofascial neck pain M54.2 Bilateral shoulder pain M25.511; M25.512
[2024-10-14 11:05] VITALS: BP 139/65; PULSE 123; O2SAT 96; BMI 32.5
--- OUTSIDE RECORDS SUMMARY | 2024-10-14 12:58 | XMS_ITS | Clinical Summary ---
Author Organization [facility] Address [address] [place] [address] Care Team Providers Care Supervisor [employer] Name Role Phone Francesca Good MD Primary Care Provider [phone] Allergies No known active allergies Medications Medication [...] Group Subscriber ID Effective Dates Phone Address [facility] [employer] [facility] HAS [id number] 2020-Present [address] [facility] [address] [place] [address] [facility] [employer] [id number] 2020-A[address] [place] [address] Care Teams Supervisor [employer] Relationship Specialty Start Date End Date Francesca oGod MD PCP - General Internal Medicine 01/27/22
== END 2024-10-14 11:16 | disposition home or self-care (01) ==
PROVIDERS: PCP Internal Medicine; Visit Provider Nurse Practitioner Family
DX: M47.812 Spondylosis without myelopathy or radiculopathy, cervical region (principal); M54.2 Cervicalgia; M25.511 Pain in right shoulder; M25.512 Pain in left shoulder
CPT/HCPCS: 99214

== ENCOUNTER → 2024-10-14 10:58 | Outpatient (BNVA) | payer MEDICAID, SELFPAY | PROVIDERS: PCP Internal Medicine; Visit Provider Nurse Practitioner Family | DX: M47.812 Spondylosis without myelopathy or radiculopathy, cervical region (principal); M25.511 Pain in right shoulder; M25.512 Pain in left shoulder; M54.2 Cervicalgia | CPT/HCPCS: 99212 ==

== ENCOUNTER 2024-10-17 12:19 | Outpatient (REF) | payer MEDICAID, SELFPAY ==
--- NOTE | ~2024-10-17 | XR_ITS ---
CLINICAL HISTORY: M25.511 - Pain in right shoulder 4 view left shoulder Comparison: None Findings: No fractures or dislocations. Mild degenerative changes in the glenohumeral joint. No significant degenerative spurring. Moderate narrowing and degenerative spurring in the glenohumeral joint. No erosions. No radiopaque foreign body. IMPRESSION: 1. No acute fracture or dislocation. 2. Cpnw-ox-pwtmpibe degenerative changes especially in the AC joint. This document has been electronically signed by: Lotus Mart DO on 10/19/2024 11:45:54
--- NOTE | ~2024-10-17 | XR_ITS ---
CLINICAL HISTORY: M25.511 - Pain in right shoulder 6 view right shoulder Comparison: None Findings: No fractures or dislocations. Moderate narrowing and degenerative spurring in the glenohumeral and acromioclavicular joint. No erosions. Multiple anchoring sutures project over the bony glenoid. IMPRESSION: 1. No acute fracture or dislocation. 2. Moderate degenerative changes. This document has been electronically signed by: Lotus Mart DO on 10/19/2024 11:45:10
--- OUTSIDE RECORDS SUMMARY | 2024-10-17 14:51 | XMS_ITS | Clinical Summary ---
Author Organization [facility] Address [address] [place] [address] Care Team Providers Care Top Flavor Attendant Name Role Phone Francesca Good MD Primary Care Provider [phone] Allergies No known active allergies Medications Medication [...] Group Subscriber ID Effective Dates Phone Address [facility] [employer] [facility] HAS [id number] 2020-Present [address] [facility] [address] [place] [address] [facility] [employer] [id number] 2020-Aly[address] [place] [address] Care Teams Top Flavor Attendant Relationship Specialty Start Date End Date Francesca Good MD PCP - General Internal Medicine 01/27/22
== END 2024-10-17 12:20 | disposition home or self-care (01) ==
LOC: HO.XRAY 12:19
PROVIDERS: PCP Internal Medicine; Visit Provider Nurse Practitioner Family
DX: M25.511 Pain in right shoulder (principal); M25.512 Pain in left shoulder
CPT/HCPCS: 73030

== ENCOUNTER → 2024-10-17 12:22 | Outpatient (BNV) | payer MEDICAID, SELFPAY | PROVIDERS: PCP Internal Medicine; Visit Provider Radiology Diagnostic Radiology | DX: M19.011 Primary osteoarthritis, right shoulder (principal); M19.012 Primary osteoarthritis, left shoulder | CPT/HCPCS: 73030 ==

== ENCOUNTER 2024-12-10 06:16 | Outpatient (REF) | payer MEDICAID, SELFPAY ==
--- NOTE | ~2024-12-10 | FL_ITS ---
EXAMINATION: FL GUIDANCE ONLY HISTORY: M47.812 - Spondylosis without myelopathy or radiculopathy, cervical region COMPARISON: None available. TECHNIQUE: Fluoroscopy time: 0.1 minutes. Cumulative Dose: 0.368 mGy. DAP: [id number] mGym2 Images: 2. FINDINGS: Images demonstrate a lead in the right neck. FL/FL guidance in treatment room IMPRESSION: Fluoroscopy during procedure. Please see procedure report for additional information. Electronically signed by: Gilbert Allen MD 12/11/2024 02:41 PM EDT
--- OUTSIDE RECORDS SUMMARY | 2024-12-10 06:19 | XMS_ITS | Clinical Summary ---
Author Organization [facility] Address [address] [place] [address] Care Team Providers Care Product Management Manager Name Role Phone Francesca Good MD Primary Care Provider [phone] Allergies No known active allergies Medications Medication [...] Group Subscriber ID Effective Dates Phone Address [facility] [employer] [facility] HAS [id number] 2020-Present [address] [facility] [address] [place] [address] [facility] [employer] [id number] 2020-Aly[address] [place] [address] Care Teams Product Management Manager Relationship Specialty Start Date End Date Francesca Good MD PCP - General Internal Medicine 01/27/22
== END 2024-12-10 06:17 | disposition home or self-care (01) ==
LOC: CF 06:16
PROVIDERS: Visit Provider Anesthesiology
DX: M47.812 Spondylosis without myelopathy or radiculopathy, cervical region (principal); M54.50 Low back pain, unspecified; G89.29 Other chronic pain; M54.2 Cervicalgia; M25.511 Pain in right shoulder; M25.512 Pain in left shoulder
CPT/HCPCS: 64555; J2003

== ENCOUNTER 2024-12-10 09:58 | Outpatient (AMB) | payer MEDICAID, SELFPAY ==
[2024-12-10 10:04] VITALS: BP 126/76; PULSE 112; RESP 16; O2SAT 99
--- NOTE | 2024-12-10 10:04 | MHC.OFFVIS ---
Vital Signs 12/10/24 10:04 12/10/24 10:28 BP 126/76 100/78 Blood Pressure Location Lt brachial Lt brachial Position Sitting Sitting Respiration 16 16 Pulse 112 H 103 H Pulse Source Pulse Oximeter Pulse Oximeter Pulse Oximetry (%) 99 96 Oxygen Delivery Method Room Air Room Air Intake Visit Reasons: RIGHT C4 MB SPRINT PNS TRIAL/ATIVAN REQ Veneer Drier Feeder Required: No Allergies No Known Allergies Allergy (Verified 12/10/24 10:04) Medication List - Last Reconciled 12/10/24 by Joya Altamirano LPN aripiprazole mg PO citalopram 20 mg PO DAILY clonazepam 0.5 mg PO BID clonazepam 1 mg PO BID PRN ibuprofen 200 mg PO Q6H PRN levothyroxine 0 mcg PO lidocaine 5% 1 patch topical DAILY 30 days lorazepam (Ativan) 1 mg PO ONCE methadone 30 mg PO DAILY naproxen 375 mg PO BID PRN nicotine mg transdermal PFSH Medical History Numbness of right hand History of cervical cancer History of blood clots History of seizure Chronic low back pain Anxiety Graves disease 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 Surgical History History of cone biopsy of cervix History of D&C History of nasal surgery History of shoulder surgery History of carpal tunnel surgery History of lumbar surgery Social History Alcohol intake: never Patient Tobacco Use Status: Current everyday Tobacco user Tobacco use type: Cigarette Cigarette Packs Per Day: 0.5 Current occupational status: previously employed Physical Exam Vital Signs: Last Vital Signs Pulse 103 H 12/10/24 10:28 Resp 16 12/10/24 10:28 BP 100/78 12/10/24 10:28 Pulse Ox 96 12/10/24 10:28 Oxygen Delivery Method Room Air 12/10/24 10:28 Assessment & Plan Assessment & Plan (1) Cervical spondylosis: Code(s): M47.812 - Spondylosis without myelopathy or radiculopathy, cervical region Category: Medical (2) Myofascial neck pain: Code(s): M54.2 - Cervicalgia Category: Medical (3) Bilateral shoulder pain: Code(s): M25.511 - Pain in right shoulder; M25.512 - Pain in left shoulder Category: Medical Plan SPRINT C5 right PNS. Percutaneous implantation of peripheral nerve stimulation Sprint system. After the risks, benefits and alternatives were discussed with the patient and informed consent was obtained, patient was placed in the prone position and padded to foster comfort. Time out was performed delineating correct site and side of the procedure , name and of the patient, patient participated in time out procedure. Entire posterior neck, occipital portion of the head, upper back were prepped with ChloraPrep and draped with sterile utility towels. C-arm was brought over the operating field and clear picture of the C5 lamina on the right was delineated on the screen. The upper central portion of the lamina was chosen as a target of the needle tip insertion . After identifying and marking the intended target, the skin around the planned entry point and the subcutaneous tissues were injected with local anesthetic forming skin wheal.. A percutaneous sleeve and stimulating probe lead introduction system were assembled, inserted and advanced through the skin wheal to the point of interest under C-arm view in tunnel vision fashion, the introducer needle was delivered to a location in proximity to the nerve. Multiple stimulation parameters were used to deliver stimulation to the nerve in concert with stimulating at multiple positions around the nerve. nerve target acquisition was confirmed noting generation of in the corresponding to the nerve being stimulated. Various electrical parameter combinations were tested, and the lead location was adjusted (physically relocated) until the patient indicated overlapping the distribution of the patient?s typical region of pain. The stimulating probe was removed from the introducer and a percutaneous lead was guided through the needle and delivered to a location in similar proximity to the nerve. Final location was verified with electrical stimulation. The introducer needle was removed, and the exposed end of the percutaneous lead was attached to an external stimulator unit. At the end of the case various electrical parameter combinations were again tested until the patient indicated paresthesia or muscle tension overlapping the distribution of the patient?s typical region of pain. After confirming that lead impedance was in the normal range, the external unit was detached, the needle was removed, and the lead was anchored at the skin. The lead was threaded into the connector block and electrical continuity and desired patient response was confirmed. The connector block was attached to the external stimulator unit. The site was covered with a sterile occlusive dressing and a image was taken to document final placement Orders: Orders FL guidance in treatment room Today M47.812 - Spondylosis without myelopathy or radiculopathy, cervical region Medications: New lorazepam (Ativan) Take 30 minutes prior to arrival to procedure 1 mg PO ONCE 1 tab 0RF anxiety Coding Level of Care Code Procedure Only Diagnoses Cervical spondylosis M47.812 Myofascial neck pain M54.2 Bilateral shoulder pain M25.511; M25.512
[2024-12-10 10:28] VITALS: BP 100/78; PULSE 103; RESP 16; O2SAT 96
--- OUTSIDE RECORDS SUMMARY | 2024-12-10 11:16 | XMS_ITS | Clinical Summary ---
Author Organization [facility] Address [address] [place] [address] Care Team Providers Care Rope Coiling Machine Operator Name Role Phone Francesca Good MD Primary Care Provider [phone] Allergies No known active allergies Medications Medication [...] Group Subscriber ID Effective Dates Phone Address [facility] [employer] [facility] HAS [id number] 08/14/2020-Present [address] [facility] [address] [place] [address] [facility] [employer] [id number] 09/10/2020-Aly[address] [place] [address] Care Teams Rope Coiling Machine Operator Relationship Specialty Start Date End Date Francesca Good MD PCP - General Internal Medicine 01/27/22
== END 2024-12-10 10:47 | disposition home or self-care (01) ==
LOC: HO.PMCPRC 09:58
PROVIDERS: PCP Internal Medicine; Visit Provider Anesthesiology
DX: M47.812 Spondylosis without myelopathy or radiculopathy, cervical region (principal); M54.2 Cervicalgia; M25.511 Pain in right shoulder; M25.512 Pain in left shoulder
CPT/HCPCS: 64555

== ENCOUNTER 2024-12-17 12:49 | Outpatient (AMB) | payer MEDICAID, SELFPAY ==
--- NOTE | 2024-12-17 12:52 | A.OFFVIS_ITS ---
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 King. Patient reports 50% ongoing pain relief since procedure with partial relief with daily functioning, movements, and sleep. She is experiencing ongoing neck pain, quantified as a 6/10 on a pain scale, for which the stimulator settings have been adjusted for optimal effect. Adjustments initially began at a level of 30, then 60 with positive paresthesia, with plans to increase to 65 today. Patient reports her daughter assists her in dressing changes at home and has been following instruction from [employer] rep as well patient resources videos online through [employer] website. There are plans to increase stimulation settings weekly, with the goal to reduce pain while maintaining comfort. The dressing was removed today. Lead insertion sites is clean, dry, intact, no redness, no swelling, no pathological discharge. The lead area was cleansed with Chloraprep, external stimulator unit mounting pad was changed, site was covered with gauze and Tegaderm film dressing. Patient reports she changed pulse generator mounting pad at home this morning. Past Procedures: 12/10/24: Right C5 Sprint PNS placement-50% pain relief 09/24/24: Bilateral therapeutic C4-C5-C6 MBB-80% pain relief for 1 week, ongoing 60% pain relief 07/02/24: Bilateral diagnostic C4-C5-C6 MBB-80% pain relief for 6 hours, ongoing 60% pain relief PRIOR: Patient is a pleasant 52 years old female with history of seizures, depression, back surgery [place] [address] Weber, methadone usage presents today with work related injury presents with neck pain that radiates to her arm, worse on the right with constant numbness, tingling, paresthesias and lower back pain with radiation i nto her right buttock and into her posterior thigh with occasional numbness and tingling but not below knee level. She reports a box and from a 6 feet tall shelf and hit her in the middle posterior neck and glided on her back causing her significant ongoing pain, headaches, muscle spasms, stiffness and decreased functionality with walking and bending but does not necessarily go away with rest. Pain affects her daily functioning, activities, sleep, mood, and social interactions. Physical therapy has provided minimal improvements. 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 Patient has modified her duties at [employer] and has tried to go back at work but notices increased in pain. Denies any fever, shortness of breaths, chest pain, dizziness, gait imbalance, bladder or bowel incontinence or saddle anesthesia. Patient was referred to our office for potential trigger point injections. Onset 11/14/22 Location Mid and lower back, neck and buttocks radiates to right knee Duration Constant pain for past 4 months due to work-related injury Characteristics of symptom or complaint Aching, stabbing, sharp, throbbing, cramping, numbness, tingling, spasming Aggravating or associated factors Movements, walking, bending, lifting Relieving factors Resting, lidocaine patch, NSAIDs Treatment Physical therapy, home program exercises COUNT INCLUDES THE [facility] Medical History Numbness of right hand History of cervical cancer History of blood clots History of seizure Chronic low back pain Anxiety Graves disease 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 Surgical History History of cone biopsy of cervix History of D&C History of nasal surgery History of shoulder surgery History of carpal tunnel surgery History of lumbar surgery Social History Alcohol intake: never Patient Tobacco Use Status: Current everyday Tobacco user Tobacco use type: Cigarette Cigarette Packs Per Day: 0.5 Current occupational status: previously employed Review of Systems Const All systems reviewed & are unremarkable except as noted in HPI and below Physical Exam Vital Signs: Last Vital Signs Pulse 109 H 12/17/24 12:56 BP 119/64 12/17/24 12:56 Pulse Ox 98 12/17/24 12:56 Oxygen Delivery Method Room Air 12/17/24 12:56 BMI result Body Mass Index 32.3 General: Appears afebrile. Alert and oriented. Mood and affect appropriate. Follows and participates in conversation appropriately. Respiratory effort is unlabored. Able to transition from sit to stand unassisted. Ambulates with bilaterally normal heel strike and toe off. Lead Insertion Site: Lead insertion site looks clean, dry, intact. No pathological discharge, no swelling and no erythema. Lead site dressing was changed today in the clinic. Positive paresthesia at 60 on the right. Results Reviewed Results Reviewed: NE electromyogram (EMG); NE nerve conduction velocity 03/15/24 FINDINGS: Right median sensory nerve showed prolonged peak latency. Interlatency difference between right median and radial sensory nerves was 0.8. All other nerves tested were within normal. Concentric needle EMG was performed in selected muscles of the right upper extremity and cervical paraspinals. Study did not reveal signs of electric a bnormalities as shown in the table above. IMPRESSION: 1. This is an abnormal study. 2. There is electrodiagnostic evidence for right mild median neuropathy at the wrist, consistent with carpal tunnel syndrome. 3. There is no electrodiagnostic evidence for ulnar neuropathy, brachial plexopathy, or cervical radiculopathy. MR CERVICAL SPINE WITHOUT CONTRAST 03/25/23 FINDINGS: The cervical vertebral bodies maintain normal heights and alignment. There is incomplete segmentation of the C3-C4 level with a hypoplastic disc and fusion of the posterior elements. There is moderate disc height loss at C5-C6 and mild disc height loss at C4-C5. No marrow edema is seen. The cord signal appears normal. The imaged intracranial contents and extraspinal soft tissues are unremarkable. SPINAL LEVELS: C2-C3: No posterior disc abnormality. No spinal canal or neural foraminal stenosis. C3-C4: Hypoplastic disc and fused facets. No spinal canal or neural foraminal stenosis. C4-C5: Mild disc osteophyte complex with uncovertebral hypertrophy. Mild to moderate bilateral neural foraminal stenosis. No spinal canal stenosis. C5-C6: Disc osteophyte complex with uncovertebral hypertrophy resulting in severe bilateral neural foraminal stenosis. No spinal canal stenosis. C6-C7: Left foraminal protrusion with uncovertebral hypertrophy resulting in mild to moderate left neural foraminal stenosis. No spinal canal stenosis. C7-T1: No posterior disc abnormality. No spinal canal or neural foraminal stenosis. IMPRESSION: Multilevel degenerative spondylosis without significant narrowing of the spinal canal. Neural foraminal stenosis appears mild to moderate bilaterally at C4-C5, severe bilaterally at C5-C6, and mild to moderate on the left at C6-C7. XR THORACIC SPINE, 3 VIEWS XR LUMBAR SPINE, 3 VIEWS 03/06/23 FINDINGS: 5 nonrib-bearing lumbar-type vertebral bodies with suggestion of right L5 hemisacralization. No acute visible fracture or dislocation. Slight levocurvature of the mid lumbar spine. Mild to moderate multilevel degenerative changes disc space narrowing, endplate sclerosis, osteophyte formation, and facet arthropathy. Vertebral body heights and disc spaces are maintained. Posterior elements are intact. Paraspinal soft tissues are unremarkable. Visualized portions of the chest and abdomen are unremarkable. T-shaped IUD noted in the pelvis. IMPRESSION: 1. No acute visible fracture or dislocation. 2. Slight levocurvature of the mid lumbar spine. 3. Mild to moderate multilevel degenerative changes. 4. T-shaped IUD noted in the pelvis. XR CERVICAL SPINE 03/06/23 FINDINGS: No acute visible fracture or dislocation. Multilevel degenerative changes of the cervical spine greatest at C3-C4 with severe disc space narrowing and facet ankylosis. Visualized dens is intact. Vertebral body heights and disc spaces are maintained. Prevertebral soft tissues are unremarkable. Posterior elements are intact. Paraspinal soft tissues are unremarkable. Visualized portions of the upper chest are unremarkable. IMPRESSION: 1. No acute visible fracture or dislocation. 2. Multilevel degenerative changes of the cervical spine greatest at C3-C4 with severe disc space narrowing and facet ankylosis. Assessment & Plan Assessment & Plan (1) Cervical spondylosis: Code(s): M47.812 - Spondylosis without myelopathy or radiculopathy, cervical region Category: Medical (2) Bilateral shoulder pain: Code(s): M25.511 - Pain in right shoulder; M25.512 - Pain in left shoulder Category: Medical Plan The plan for managing the patient's right C5 Sprint PNS involves continued adjustment of device settings to enhance pain relief, monitoring for effective reduction in pain levels. Instruction on proper dressing change technique to prevent wire displacement is emphasized. An increase in stimulation settings is anticipated as comfortable. Patient reports her daughter is able to continue weekly dressing changes at home. Denies any untoward effects with Sprint PNS therapy. She is scheduled for left C5 Sprint placement on 12/24/24. All questions and concerns have been answered and patient agreed with the plan. Follow up as needed. Patient was informed and verbally consented to the use of an ambient scribe for clinic note documentation during this visit. Patient Instructions: I discussed with the patient the importance of gradually increasing the stimulation settings to potentially reduce her chronic pain, emphasizing incremental adjustments to find a tolerable level. We reviewed the method of weekly dressing changes to ensure wire integrity and prevent complications, discussed the role of her daughter in assisting at home, and reiterated education on monitoring for signs of displacement or inefficient stimulation. Follow-up has been planned for a full assessment of pain management success. - Gradually adjust stimulation settings as advised. - Continue weekly dressing changes with care to avoid wire displacement. - Monitor pain levels and report any significant changes. - Follow-up as scheduled; maintain awareness of the planned removal date. - Seek care if experiencing increased redness, swelling, or pain. - Left side C5 Sprint is scheduled for 12/24/24. Coding Level of Care Code Est Pt Level 3 (17825) Complex EM visit Add On G2211 Diagnoses Cervical spondylosis M47.812 Bilateral shoulder pain M25.511; M25.512
[2024-12-17 12:56] VITALS: BP 119/64; PULSE 109; O2SAT 98; BMI 32.3
--- OUTSIDE RECORDS SUMMARY | 2024-12-17 13:59 | XMS_ITS | Clinical Summary ---
Author Organization [facility] Address [address] [place] [address] Care Team Providers Care Coroner/Medical Examiner Name Role Phone Francesca Good MD Primary Care Provider [phone] Allergies No known active allergies Medications Medication [...] Subscriber ID Effective Dates Phone Address [facility] [employer] [facility] [id number] 2020-Present [address] [facility] [address] [place] [address] [facility] Authentic Response [id number] 2020-A[address] [place] [address] Care Teams Coroner/Medical Examiner Relationship Specialty Start Date End Date Francesca Good MD PCP - General Internal Medicine 01/27/22
== END 2024-12-17 13:10 | disposition home or self-care (01) ==
LOC: HO.PMC 12:50
PROVIDERS: PCP Internal Medicine; Visit Provider Nurse Practitioner Family
DX: M47.812 Spondylosis without myelopathy or radiculopathy, cervical region (principal); M25.511 Pain in right shoulder; M25.512 Pain in left shoulder
CPT/HCPCS: 99024

== ENCOUNTER → 2024-12-17 12:49 | Outpatient (BNVA) | payer MEDICAID, SELFPAY | PROVIDERS: PCP Internal Medicine; Visit Provider Nurse Practitioner Family | DX: M47.812 Spondylosis without myelopathy or radiculopathy, cervical region (principal); M25.511 Pain in right shoulder; M25.512 Pain in left shoulder | CPT/HCPCS: 99212 ==

== ENCOUNTER 2024-12-24 06:17 | Outpatient (REF) | payer MEDICAID, SELFPAY ==
--- NOTE | ~2024-12-24 | FL_ITS ---
EXAMINATION: FL GUIDANCE ONLY HISTORY: M47.812 - Spondylosis without myelopathy or radiculopathy, cervical region COMPARISON: None available. TECHNIQUE: Fluoroscopy time: 0.1 minutes. Cumulative Dose: 0.733 mGy. DAP: [id number] mGym2 Images: 1. FINDINGS: A single fluoroscopic spot film of the cervical spine the AP projection demonstrates leads in place bilaterally. FL/FL guidance in treatment room IMPRESSION: Fluoroscopy during procedure. Please see procedure report for additional information. Electronically signed by: Gilbert Allen MD 12/24/2024 01:01 PM EDT
--- OUTSIDE RECORDS SUMMARY | 2024-12-24 06:20 | XMS_ITS | Clinical Summary ---
Author Organization [facility] Address [address] [place] [address] Care Team Providers Care Manager Ethics Name Role Phone Francesca Good MD Primary Care Provider [phone] Allergies No known active allergies Medications Medication [...] Group Subscriber ID Effective Dates Phone Address [facility] [employer] [facility] [id number] 2020-Present [address] [facility] [address] [place] [address] [facility] [employer] [id number] 2020-Aly[address] [place] [address] Care Teams Manager Ethics Relationship Specialty Start Date End Date Francesca Good MD PCP - General Internal Medicine 01/27/22
== END 2024-12-24 06:18 | disposition home or self-care (01) ==
LOC: CF 06:17
PROVIDERS: Visit Provider Anesthesiology
DX: M47.812 Spondylosis without myelopathy or radiculopathy, cervical region (principal); M54.2 Cervicalgia; M25.511 Pain in right shoulder; M25.512 Pain in left shoulder
CPT/HCPCS: 64555; C1778; J2003

== ENCOUNTER 2024-12-24 09:44 | Outpatient (AMB) | payer MEDICAID, SELFPAY ==
[2024-12-24 09:50] VITALS: BP 104/72; PULSE 111; RESP 16; O2SAT 97
--- NOTE | 2024-12-24 09:50 | A.OFFVIS_ITS ---
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: No Allergies No Known Allergies Allergy (Verified 12/24/24 09:50) Medication List - Last Reconciled 12/24/24 by Joya Altamirano LPN aripiprazole mg PO citalopram 20 mg PO DAILY clonazepam 0.5 mg PO BID clonazepam 1 mg PO BID PRN ibuprofen 200 mg PO Q6H PRN levothyroxine 0 mcg PO lidocaine 5% 1 patch topical DAILY 30 days methadone 30 mg PO DAILY naproxen 375 mg PO BID PRN nicotine mg transdermal PFSH Medical History Numbness of right hand History of cervical cancer History of blood clots History of seizure Chronic low back pain Anxiety Graves disease 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 Surgical History History of cone biopsy of cervix History of D&C History of nasal surgery History of shoulder surgery History of carpal tunnel surgery History of lumbar surgery Social History Alcohol intake: never Patient Tobacco Use Status: Current everyday Tobacco user Tobacco use type: Cigarette Cigarette Packs Per Day: 0.5 Current occupational status: previously employed Physical Exam Vital Signs: Last Vital Signs Pulse 99 12/24/24 10:26 Resp 16 12/24/24 10:26 BP 98/62 12/24/24 10:26 Pulse Ox 97 12/24/24 10:26 Oxygen Delivery Method Room Air 12/24/24 10:26 Assessment & Plan Assessment & Plan (1) Cervical spondylosis: Code(s): M47.812 - Spondylosis without myelopathy or radiculopathy, cervical region Category: Medical (2) Myofascial neck pain: Code(s): M54.2 - Cervicalgia Category: Medical (3) Bilateral shoulder pain: Code(s): M25.511 - Pain in right shoulder; M25.512 - Pain in left shoulder Category: Medical Plan SPRINT C5 left PNS. Percutaneous implantation of peripheral nerve stimulation Sprint system. After the risks, benefits and alternatives were discussed with the patient and informed consent was obtained, patient was placed in the prone position and padded to foster comfort. Time out was performed delineating correct site and side of the procedure , name and of the patient, patient participated in time out procedure. Entire posterior neck, occipital portion of the head, upper back were prepped with ChloraPrep and draped with sterile utility towels. C-arm was brought over the operating field and clear picture of the C5 lamina on the left was delineated on the screen. The upper central portion of the lamina was chosen as a target of the needle tip insertion . After identifying and marking the intended target, the skin around the planned entry point and the subcutaneous tissues were injected with local anesthetic forming skin wheal.. A percutaneous sleeve and stimulating probe lead introduction system were assembled, inserted and advanced through the skin wheal to the point of interest under C-arm view in tunnel vision fashion, the introducer needle was delivered to a location in proximity to the nerve. Multiple stimulation parameters were used to deliver stimulation to the nerve in concert with stimulating at multiple positions around the nerve. nerve target acquisition was confirmed noting generation of in the corresponding to the nerve being stimulated. Various electrical parameter combinations were tested, and the lead location was adjusted (physically relocated) until the patient indicated overlapping the distribution of the patient?s typical region of pain. The stimulating probe was removed from the introducer and a percutaneous lead was guided through the needle and delivered to a location in similar proximity to the nerve. Final location was verified with electrical stimulation. The introducer needle was removed, and the exposed end of the percutaneous lead was attached to an external stimulator unit. At the end of the case various electrical parameter combinations were again tested until the patient indicated paresthesia or muscle tension overlapping the distribution of the patient?s typical region of pain. After confirming that lead impedance was in the normal range, the external unit was detached, the needle was removed, and the lead was anchored at the skin. The lead was threaded into the connector block and electrical continuity and desired patient response was confirmed. The connector block was attached to the external stimulator unit. The site was covered with a sterile occlusive dressing and a image was taken to document final placement Orders: Orders AMB Sprint PNS Today M47.812 - Spondylosis without myelopathy or radiculopathy, cervical region FL guidance in treatment room Today M47.812 - Spondylosis without myelopathy or radiculopathy, cervical region Medications: New lidocaine HCl 5 mL subcut ONCE 5 mL 0RF M47.812 - Spondylosis without myelopathy or radiculopathy, cervical region Coding Level of Care Code Procedure Only Diagnoses Cervical spondylosis M47.812 Myofascial neck pain M54.2 Bilateral shoulder pain M25.511; M25.512 Implantable Device Implantable Device Implantable Devices [employer] Supervisor Of Eng[employer] Implant Date Expiration Date Analgesic PENS system 1 [employer] 12/10/24 Analgesic PENS system 1 [employer] 12/24/24 03/11/26
--- OUTSIDE RECORDS SUMMARY | 2024-12-24 10:25 | XMS_ITS | Clinical Summary ---
Author Organization [facility] Address [address] [place] [address] Care Team Providers Care Managed Care Director Name Role Phone Francesca Good MD Primary Care Provider Allergies No known active allergies Medications Medication [...] Group Subscriber ID Effective Dates Phone Address [facility] [employer] [facility] [id number] 2020-Present [address] [facility] [address] [place] [address] [facility] [employer] [id number] 2020-Aly[address] [place] [address] Care Teams Managed Care Director Relationship Specialty Start Date End Date Francesca Good MD PCP - General Internal Medicine 01/27/22
[2024-12-24 10:26] VITALS: BP 98/62; PULSE 99; RESP 16; O2SAT 97
== END 2024-12-24 10:30 | disposition home or self-care (01) ==
LOC: HO.PMCPRC 09:44
PROVIDERS: PCP Internal Medicine; Visit Provider Anesthesiology
DX: M47.812 Spondylosis without myelopathy or radiculopathy, cervical region (principal); M54.2 Cervicalgia; M25.511 Pain in right shoulder; M25.512 Pain in left shoulder
CPT/HCPCS: 64555

== ENCOUNTER 2024-12-31 12:53 | Outpatient (AMB) | payer MEDICAID, SELFPAY ==
--- NOTE | 2024-12-31 12:55 | MHC.OFFVIS ---
Vital Signs 12/31/24 12:58 Height 5 ft 6 in Weight 200 lb BMI 32.3 BP 124/71 Blood Pressure Location Rt brachial Position Sitting Pulse 82 Pulse Source Pulse Oximeter Pulse Oximetry (%) 96 Oxygen Delivery Method Room Air Intake Visit Reasons: LEFT C4 MB SPRINT TRIAL Intake Note: Pain today 01/21 Bladder Blower Required: No Accompanied by: Self / Same As Patient Allergies No Known Allergies Allergy (Verified 12/31/24 12:55) HPI Comments Details: Patient presents today 1 week status post Left C5 Sprint PNS placement on 12/24/[address] King. Patient reports 70% ongoing pain relief since procedure with good relief with daily functioning, movements, and sleep. She underwent right side Sprint on 12/10/24 and continues to adjust her stimulation settings to achieve optimal pain relief. Currently her stimulation settings at 64 on the left and 73 on the right with positive paresthesia without any untoward effects from PNS therapy. She upper back and neck pain, quantified as a 2-6/10 on a pain scale, most significant at mid day and evening. Patient reports her daughter assists her in dressing changes at home and has been following instruction from [employer] rep as well patient resources videos online through [employer] website. There are plans to increase stimulation settings weekly, with the goal to reduce pain while maintaining comfort. The dressings were removed today. Lead insertion sites are clean, dry, intact, no redness, no swelling, no pathological discharge. The lead areas were cleansed with Chloraprep, external stimulator unit mounting pad was changed, site was covered with gauze and Tegaderm film dressing. Patient reports she changed pulse generator mounting pad at home this morning. Past Procedures: 12/24/24: Left C5 Sprint PNS placement-70% pain relief 12/10/24: Right C5 Sprint PNS placement-50% pain relief 09/24/24: Bilateral therapeutic C4-C5-C6 MBB-80% pain relief for 1 week, ongoing 60% pain relief 07/02/24: Bilateral diagnostic C4-C5-C6 MBB-80% pain relief for 6 hours, ongoing 60% pain relief PRIOR: Patient is a pleasant 52 years old female with history of seizures, depression, back [place] [address] Weber, methadone usage presents today with work related injury presents with neck pain that radiates to her arm, worse on the right with constant numbness, tingling, paresthesias and lower back pain with radiation into her right buttock and into her posterior thigh with occasional numbness and tingling but not below knee level. She reports a box and from a 6 feet tall shelf and hit her in the middle posterior neck and glided on her back causing her significant ongoing pain, headaches, muscle spasms, stiffness and decreased functionality with walking and bending but does not necessarily go away with rest. Pain affects her daily functioning, activities, sleep, mood, and social interactions. Physical therapy has provided minimal improvements. 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 Patient has modified her duties at [employer] and has tried to go back at work but notices increased in pain. Denies any fever, shortness of breaths, chest pain, dizziness, gait imbalance, bladder or bowel incontinence or saddle anesthesia. Patient was referred to our office for potential trigger point injections. Onset 11/14/22 Location Mid and lower back, neck and buttocks radiates to right knee Duration Constant pain for past 4 months due to work-related injury Characteristics of symptom or complaint Aching, stabbing, sharp, throbbing, cramping, numbness, tingling, spasming Aggravating or associated factors Movements, walking, bending, lifting Relieving factors Resting, lidocaine patch, NSAIDs Treatment Physical therapy, home program exercises [facility] Medical History Numbness of right hand History of cervical cancer History of blood clots History of seizure Chronic low back pain Anxiety Graves disease 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 Surgical History History of cone biopsy of cervix History of D&C History of nasal surgery History of shoulder surgery History of carpal tunnel surgery History of lumbar surgery Social History Alcohol intake: never Patient Tobacco Use Status: Current everyday Tobacco user Tobacco use type: Cigarette Cigarette Packs Per Day: 0.5 Current occupational status: previously employed Review of Systems Const All systems reviewed & are unremarkable except as noted in HPI and below Physical Exam Vital Signs: Last Vital Signs Pulse 82 12/31/24 12:58 BP 124/71 12/31/24 12:58 Pulse Ox 96 12/31/24 12:58 Oxygen Delivery Method Room Air 12/31/24 12:58 BMI result Body Mass Index 32.3 General: Appears afebrile. Alert and oriented. Mood and affect appropriate. Follows and participates in conversation appropriately. Respiratory effort is unlabored. Able to transition from sit to stand unassisted. Ambulates with bilaterally normal heel strike and toe off. Lead Insertion Site: Lead insertion sites are clean, dry, intact. No pathological discharge, no swelling and no erythema. Lead site dressings were changed today in the clinic. Positive paresthesia at 73 on the right and 64 on the left. Assessment & Plan Assessment & Plan (1) Cervical spondylosis: Code(s): M47.812 - Spondylosis without myelopathy or radiculopathy, cervical region Category: Medical (2) Myofascial neck pain: Code(s): M54.2 - Cervicalgia Category: Medical (3) Bilateral shoulder pain: Code(s): M25.511 - Pain in right shoulder; M25.512 - Pain in left shoulder Category: Medical Plan Patient reports good pain relief with left and right C5 Sprint PNS and continues adjustment of device settings to enhance optimal pain relief, monitoring for effective reduction in pain levels. We reviewed proper dressing change techniques and device care. An increase in stimulation settings is anticipated as comfortable. Patient reports her daughter is able to continue weekly dressing changes at home. Denies any untoward effects with Sprint PNS therapy. All questions and concerns have been answered and patient agreed with the plan. Follow up for Sprint removal and sooner as needed. Coding Level of Care Code Est Pt Level 3 (10185) Complex EM visit Add On G2211 Diagnoses Cervical spondylosis M47.812 Myofascial neck pain M54.2 Bilateral shoulder pain M25.511; M25.512
[2024-12-31 12:58] VITALS: BP 124/71; PULSE 82; O2SAT 96; BMI 32.3
--- OUTSIDE RECORDS SUMMARY | 2024-12-31 13:58 | XMS_ITS | Clinical Summary ---
Author Organization [facility] Address [address] [place] [address] Care Team Providers Care Saxophone Player Name Role Phone Francesca Good MD Primary Care Provider [phone] Allergies No known active allergies Medications Medication [...] Group Subscriber ID Effective Dates Phone Address [facility] [employer] [facility] HAS [id number] 08/14/2020-Present [address] [facility] [address] [place] [address] [facility] [employer] [id number] 09/10/2020-Alyson MCCULLOUGH [address] [place] [address] Care Teams Saxophone Player Relationship Specialty Start Date End Date Francesca Good MD PCP - General Internal Medicine 01/27/22
== END 2024-12-31 13:14 | disposition home or self-care (01) ==
LOC: HO.PMC 12:54
PROVIDERS: PCP Internal Medicine; Visit Provider Nurse Practitioner Family
DX: M47.812 Spondylosis without myelopathy or radiculopathy, cervical region (principal); M54.2 Cervicalgia; M25.511 Pain in right shoulder; M25.512 Pain in left shoulder
CPT/HCPCS: 99024

== ENCOUNTER → 2024-12-31 12:53 | Outpatient (BNVA) | payer MEDICAID, SELFPAY | PROVIDERS: PCP Internal Medicine; Visit Provider Nurse Practitioner Family | DX: M47.812 Spondylosis without myelopathy or radiculopathy, cervical region (principal); M54.2 Cervicalgia; M25.511 Pain in right shoulder; M25.512 Pain in left shoulder | CPT/HCPCS: 99212 ==

== ENCOUNTER 2025-02-04 10:48 | Outpatient (AMB) | payer MEDICAID, SELFPAY ==
[2025-02-04 11:16] VITALS: BMI 32.3
--- NOTE | 2025-02-04 11:16 | MHC.OFFVIS ---
Vital Signs 02/04/25 11:16 Height 5 ft 6 in Weight 200 lb BMI 32.3 Intake Visit Reasons: OV-B/L knee pain f/u Intake Note: Hien is a 54 year old female who presents with complaints of bilateral knee pains. She describes her pains as sharp in nature. Her knee pains have gotten worse over the last 6 months in spite of continued non operative treatments. She has tried Tylenol and anti-inflammatory medicines which gave her minimal relief. She has also done physical therapy exercises which aggravated her pain. Allergies No Known Allergies Allergy (Verified 02/04/25 11:18) Medication List - Last Reconciled 02/04/25 by Kayden Bass MD aripiprazole mg PO citalopram 20 mg PO DAILY clonazepam 0.5 mg PO BID clonazepam 1 mg PO BID PRN ibuprofen 200 mg PO Q6H PRN levothyroxine 0 mcg PO lidocaine 5% 1 patch topical DAILY 30 days methadone 30 mg PO DAILY naproxen 375 mg PO BID PRN nicotine mg transdermal PFSH Medical History Numbness of right hand History of cervical cancer History of blood clots History of seizure Chronic low back pain Anxiety Graves disease 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 Surgical History History of cone biopsy of cervix History of D&C History of nasal surgery History of shoulder surgery History of carpal tunnel surgery History of lumbar surgery Social History Alcohol intake: never Patient Tobacco Use Status: Current everyday Tobacco user Tobacco use type: Cigarette Cigarette Packs Per Day: 0.5 Current occupational status: previously employed Physical Exam Vital Signs: BMI result Body Mass Index 32.3 Const Other: Well-nourished well-developed very friendly female awake alert and oriented x3 in no acute distress Extrem Other: Bilateral lower extremity examination shows good capillary refill, no skin lesions noted, normal sensation light touch Bilateral knee examination shows minimal effusions, palpable crepitus with range motion, pain with range of motion, no instability Office Procedures AMB Joint Injection/Aspiration Joint Injection/Aspiration Primary Site: left knee Prep: site was prepped using aseptic technique Injected: 40 mg of, DepoMedrol and 1% plain lidocaine Procedure: The patient tolerated the procedure well Coding 92423 - Large joint Procedure code (CPT) selection complete AMB Joint Injection/Aspiration Joint Injection/Aspiration Primary Site: right knee Prep: site was prepped using aseptic technique Injected: 40 mg of, DepoMedrol and 1% plain lidocaine Procedure: The patient tolerated the procedure well Coding 00504 - Large joint Procedure code (CPT) selection complete Results Reviewed Results Reviewed: X-rays of the patient's bilateral knee show joint space narrowing, subchondral sclerosis, no acute bony abnormalities Assessment & Plan Assessment & Plan (1) Arthritis of left knee: Code(s): M17.12 - Unilateral primary osteoarthritis, left knee Category: Medical (2) Arthritis of right knee: Code(s): M17.11 - Unilateral primary osteoarthritis, right knee Category: Medical Plan Ms. Osman presents with bilateral knee pains due to degenerative joint disease. The risks and benefits of bilateral knee cortisone injections were discussed at length with the patient. The patient wished to proceed. She tolerated the injections well. She will continue with her home exercise program. She will follow up with me on an as-needed basis should her symptoms not plateau at an unacceptable level over the next few months. Feel free to call me at any time should questions regarding her orthopedic management arise. I spent 20 minutes in reviewing the patient's records and imaging studies, seeing the patient and documenting in the medical record. Orders: Orders AMB Joint Injection/Aspiration Today M17.12 - Unilateral primary osteoarthritis, left knee AMB Joint Injection/Aspiration Today M17.11 - Unilateral primary osteoarthritis, right knee Coding Level of Care Code Est Pt Level 3 (09209) Complex EM visit Add On G2211 Diagnoses Arthritis of left knee M17.12 Arthritis of right knee M17.11 CPT Codes Coding - 28765 Large joint: 34705 - Large joint ([id number]) Coding - 09631 Large joint: 25733 - Large joint ([id number])
--- OUTSIDE RECORDS SUMMARY | 2025-02-04 12:10 | XMS_ITS | Clinical Summary ---
Author Organization [facility] Address [address] [place] [address] Care Team Providers Care Cash Shortage Investigator Name Role Phone Francesca Good MD Primary Care Provider [phone] Allergies No known active allergies Medications Medication [...] Vaccine (1 of 2) 2020 Influenza Vaccine (Season Ended) 2025 Pneumococcal Vaccine Aged Out No long er eligible based on patient's age to complete this topic RSV Ped < 20 months Aged Out No longe r eligible based on patient's age to complete this topic Insurance Payer Benefit Plan / Group Subscriber ID Effective Dates Phone Address [facility] [employer] [facility] HAS [id number] 2020-Present [address] [facility] [address] [place] [address] [facility] [employer] [id number] 2020-Alyson [address]CCULLOUGH [address] [place] [address] Care Teams Cash Shortage Investigator Relationship Specialty Start Date End Date Francesca Good MD PCP - General Internal Medicine 01/27/22
== END 2025-02-04 11:51 | disposition home or self-care (01) ==
LOC: HO.HOS 10:49
PROVIDERS: PCP Internal Medicine; Visit Provider Orthopaedic Surgery
DX: M17.0 Bilateral primary osteoarthritis of knee (principal)
CPT/HCPCS: 20610; 99213

== ENCOUNTER → 2025-02-04 10:48 | Outpatient (BNVA) | payer MEDICAID, SELFPAY | PROVIDERS: PCP Internal Medicine; Visit Provider Orthopaedic Surgery | DX: M47.812 Spondylosis without myelopathy or radiculopathy, cervical region (principal); M54.2 Cervicalgia; M25.511 Pain in right shoulder; M25.512 Pain in left shoulder; M17.12 Unilateral primary osteoarthritis, left knee; M17.11 Unilateral primary osteoarthritis, right knee | CPT/HCPCS: 20610; 99212; J1010; J2003 ==

== ENCOUNTER 2025-02-04 12:44 | Outpatient (AMB) | payer MEDICAID, SELFPAY ==
--- NOTE | 2025-02-04 12:52 | MHC.OFFVIS ---
Vital Signs 02/04/25 12:55 Height 5 ft 6 in Weight 190 lb BMI 30.7 BP 105/78 Blood Pressure Location Rt brachial Position Sitting Pulse 91 Pulse Source Pulse Oximeter Pulse Oximetry (%) 99 Oxygen Delivery Method Room Air Intake Visit Reasons: RIGHT C4 MB SPRINT REMOVAL Intake Note: Pain today 7/10 Clinical Documentation Nurse Required: No Accompanied by: Self / Same As Patient Allergies No Known Allergies Allergy (Verified 02/04/25 12:56) HPI Comments Details: The patient is a 54-year-old female presenting with the need for removal of the right C5 medial branch PNS device. She reports significant neck pain, which has not shown much improvement over time. The patient has been managing the device settings with 67 on the right side and 62 on the left side, experiencing stimulation but no significant pain relief. Current pain is rated at 7/10. The patient also reports a heat rash on her face, which developed after being outside cleaning her house. She has been advised to stay hydrated and remain in a cool environment and follow up with her PCP for worsening of symptoms. The patient has a history of carpal tunnel syndrome, for which she underwent surgery on both hands. She experiences occasional numbness and tingling in her hands, with a recurrence of previous CTS symptoms. The dressing was removed today. Lead insertion site is noted to be partially pulled on the right and intact on the left, otherwise it is clean, dry, intact, no redness, no swelling, no pathological discharge. Right lead pulled with tip intact, lead removed entirely, including tip. Area was cleansed with Chloraprep, applied Bacitracin and covered with gauze dressing. Left lead site dressing changed as well. Past Procedures: 02/04/25: Right C5 Sprint PNS [id number] ongoing pain relief 12/24/24: Left C5 Sprint PNS placement-70% pain relief 12/10/24: Right C5 Sprint PNS placement-50% pain relief 09/24/24: Bilateral therapeutic C4-C5-C6 MBB-80% pain relief for 1 week, ongoing 60% pain relief 07/02/24: Bilateral diagnostic C4-C5-C6 MBB-80% pain relief for 6 hours, ongoing 60% pain relief PRIOR: Patient is a pleasant 52 years old female with history of seizures, depression, back surgery [place] [address] Weber, methadone usage presents today with work related injury presents with neck pain that radiates to her arm, worse on the right with constant numbness, tingling, paresthesias and lower back pain with radiation into her right buttock and into her posterior thigh with occasional numbness and tingling but not below knee level. She reports a box and from a 6 feet tall shelf and hit her in the middle posterior neck and glided on her back causing her significant ongoing pain, headaches, muscle spasms, stiffness and decreased functionality with walking and bending but does not necessarily go away with rest. Pain affects her daily functioning, activities, sleep, mood, and social interactions. Physical therapy has provided minimal improvements. 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 Patient has modified her duties at [employer] and has tried to go back at work but notices increased in pain. Denies any fever, shortness of breaths, chest pain, dizziness, gait imbalance, bladder or bowel incontinence or saddle anesthesia. Patient was referred to our office for potential trigger point injections. Onset 11/14/22 Location Mid and lower back, neck and buttocks radiates to right knee Duration Constant pain for past 4 months due to work-related injury Characteristics of symptom or complaint Aching, stabbing, sharp, throbbing, cramping, numbness, tingling, spasming Aggravating or associated factors Movements, walking, bending, lifting Relieving factors Resting, lidocaine patch, NSAIDs Treatment Physical therapy, home program exercises REPLACED BY [facility] Medical History Numbness of right hand History of cervical cancer History of blood clots History of seizure Chronic low back pain Anxiety Graves disease 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 Surgical History History of cone biopsy of cervix History of D&C History of nasal surgery History of shoulder surgery History of carpal tunnel surgery History of lumbar surgery Social History Alcohol intake: never Patient Tobacco Use Status: Current everyday Tobacco user Tobacco use type: Cigarette Cigarette Packs Per Day: 0.5 Current occupational status: previously employed Review of Systems Const All systems reviewed & are unremarkable except as noted in HPI and below Physical Exam General: Appears afebrile. Alert and oriented. Mood and affect appropriate. Follows and participates in conversation appropriately. Respiratory effort is unlabored. Able to transition from sit to stand unassisted. Ambulates with bilaterally normal heel strike and toe off. Facial heat rash noted. Lead Insertion Site: Lead insertion sites are clean, dry, intact on the left, slightly pulled out on the right. No pathological discharge, no swelling and no erythema. Positive paresthesia at 67 on the right and 62 on the left. Right lead pulled with tip intact, lead removed entirely, including tip. Lead site dressings were changed today in the clinic. Results Reviewed Results Reviewed: NE electromyogram (EMG); NE nerve conduction velocity 03/15/24 FINDINGS: Right median sensory nerve showed prolonged peak latency. Interlatency difference between right median and radial sensory nerves was 0.8. All other nerves tested were within normal. Concentric needle EMG was performed in selected muscles of the right upper extremity and cervical paraspinals. Study did not reveal signs of electric abnormalities as shown in the table above. IMPRESSION: 1. This is an abnormal study. 2. There is electrodiagnostic evidence for right mild median neuropathy at the wrist, consistent with carpal tunnel syndrome. 3. There is no electrodiagnostic evidence for ulnar neuropathy, brachial plexopathy, or cervical radiculopathy. MR CERVICAL SPINE WITHOUT CONTRAST 03/25/23 FINDINGS: The cervical vertebral bodies maintain normal heights and alignment. There is incomplete segmentation of the C3-C4 level with a hypoplastic disc and fusion of the posterior elements. There is moderate disc height loss at C5-C6 and mild disc height loss at C4-C5. No marrow edema is seen. The cord signal appears normal. The imaged intracranial contents and extraspinal soft tissues are unremarkable. SPINAL LEVELS: C2-C3: No posterior disc abnormality. No spinal canal or neural foraminal stenosis. C3-C4: Hypoplastic disc and fused facets. No spinal canal or neural foraminal stenosis. C4-C5: Mild disc osteophyte complex with uncovertebral hypertrophy. Mild to moderate bilateral neural foraminal stenosis. No spinal canal stenosis. C5-C6: Disc osteophyte complex with uncovertebral hypertrophy resulting in severe bilateral neural foraminal stenosis. No spinal canal stenosis. C6-C7: Left foraminal protrusion with uncovertebral hypertrophy resulting in mild to moderate left neural foraminal stenosis. No spinal canal stenosis. C7-T1: No posterior disc abnormality. No spinal canal or neural foraminal stenosis. IMPRESSION: Multilevel degenerative spondylosis without significant narrowing of the spinal canal. Neural foraminal stenosis appears mild to moderate bilaterally at C4-C5, severe bilaterally at C5-C6, and mild to moderate on the left at C6-C7. XR THORACIC SPINE, 3 VIEWS XR LUMBAR SPINE, 3 VIEWS 03/06/23 FINDINGS: 5 nonrib-bearing lumbar-type vertebral bodies with suggestion of right L5 hemisacralization. No acute visible fracture or dislocation. Slight levocurvature of the mid lumbar spine. Mild to moderate multilevel degenerative changes disc space narrowing, endplate sclerosis, osteophyte formation, and facet arthropathy. Vertebral body heights and disc spaces are maintained. Posterior elements are intact. Paraspinal soft tissues are unremarkable. Visualized portions of the chest and abdomen are unremarkable. T-shaped IUD noted in the pelvis. IMPRESSION: 1. No acute visible fracture or dislocation. 2. Slight levocurvature of the mid lumbar spine. 3. Mild to moderate multilevel degenerative changes. 4. T-shaped IUD noted in the pelvis. XR CERVICAL SPINE 03/06/23 FINDINGS: No acute visible fracture or dislocation. Multilevel degenerative changes of the cervical spine greatest at C3-C4 with severe disc space narrowing and facet ankylosis. Visualized dens is intact. Vertebral body heights and disc spaces are maintained. Prevertebral soft tissues are unremarkable. Posterior elements are intact. Paraspinal soft tissues are unremarkable. Visualized portions of the upper chest are unremarkable. IMPRESSION: 1. No acute visible fracture or dislocation. 2. Multilevel degenerative changes of the cervical spine greatest at C3-C4 with severe disc space narrowing and facet ankylosis. Assessment & Plan Assessment & Plan (1) Cervical spondylosis: Code(s): M47.812 - Spondylosis without myelopathy or radiculopathy, cervical region Category: Medical (2) Myofascial neck pain: Code(s): M54.2 - Cervicalgia Category: Medical (3) Bilateral shoulder pain: Code(s): M25.511 - Pain in right shoulder; M25.512 - Pain in left shoulder Category: Medical Plan The plan involves the removal of the right C5 medial branch PNS device, which was completed during the visit. Patient will continue adjustment of device settings on the left to enhance optimal pain relief, monitoring for effective reduction in pain levels. The patient was advised to monitor the heat rash and consult her primary care physician if it persists. For her neck pain, the patient was instructed to adjust the stimulation settings on the left to see if it provides any relief. All questions and concerns have been answered and patient agreed with the plan. Follow-up is scheduled for February for Sprint removal on the left side device. Patient was informed and verbally consented to the use of an ambient scribe for clinic note documentation during this visit. Coding Level of Care Code Est Pt Level 3 (00314) Complex EM visit Add On G2211 Diagnoses Cervical spondylosis M47.812 Myofascial neck pain M54.2 Bilateral shoulder pain M25.511; M25.512
[2025-02-04 12:55] VITALS: BP 105/78; PULSE 91; O2SAT 99; BMI 30.7
== END 2025-02-04 13:09 | disposition home or self-care (01) ==
LOC: HO.PMC 12:45
PROVIDERS: PCP Internal Medicine; Visit Provider Nurse Practitioner Family
DX: M47.812 Spondylosis without myelopathy or radiculopathy, cervical region (principal); M54.2 Cervicalgia; M25.511 Pain in right shoulder; M25.512 Pain in left shoulder
CPT/HCPCS: 99213

== ENCOUNTER 2025-02-19 12:45 | Outpatient (AMB) | payer MEDICAID, SELFPAY ==
--- NOTE | 2025-02-19 12:51 | A.OFFVIS_ITS ---
Vital Signs 02/19/25 12:52 Weight 195 lb BP 119/65 Blood Pressure Location Lt brachial Position Sitting Respiration 18 Pulse 113 H Pulse Source Pulse Oximeter Pulse Oximetry (%) 100 Oxygen Delivery Method Room Air Intake Visit Reasons: LEFT C4 SPRINT REMOVAL Intake Note: L C4 SPRINT WSA REMOVED FULLY INTACT WITH TIP INCLUDED SITE LOOKS GOOD. BANDAID APPLIED Rotary Machine Operator Required: No Allergies No Known Allergies Allergy (Verified 02/19/25 12:51) HPI Comments Details: Carolee is back in my office after completion of the treatment with sprint PNS. She reported very minimal improvement with sprint PNS. She reported some if any pain relief on stimulation however now after the removal of the device her pain came back and it is very severe. She reports her pain today 8 to 9/10. She reports mobility of her neck is getting worse. Attention was attracted to the MRI data demonstrating C5-C6 severe foraminal stenosis. I offered the patient to perform interlaminar C5-C6 epidural steroid injection. Patient agreed to go for the procedure. Risks and benefits were thoroughly explained to the patient. The dressing was removed today the electrodes were removed and sterile Band-Aid were applied.. Area was cleansed with Chloraprep, applied Bacitracin and covered with gauze dressing. Left lead site dressing changed as well. Past Procedures: 02/04/25: Right C5 Sprint PNS [id number] ongoing pain relief 12/24/24: Left C5 Sprint PNS placement-70% pain relief 12/10/24: Right C5 Sprint PNS placement-50% pain relief 09/24/24: Bilateral therapeutic C4-C5-C6 MBB-80% pain relief for 1 week, ongoing 60% pain relief 07/02/24: Bilateral diagnostic C4-C5-C6 MBB-80% pain relief for 6 hours, ongoing 60% pain relief PRIOR: Patient is a pleasant 52 years old female with history of seizures, depression, back [place] [address] Weber, methadone usage presents today with work related injury presents with neck pain that radiates to her arm, worse on the right with constant numbness, tingling, paresthesias and lower back pain with radiation into her right buttock and into her posterior thigh with occasional numbness and tingling but not below knee level. She reports a box and from a 6 feet tall shelf and hit her in the middle posterior neck and glided on her back causing her significant ongoing pain, headaches, muscle spasms, stiffness and decreased functionality with walking and bending but does not necessarily go away with rest. Pain affects her daily functioning, activities, sleep, mood, and social interactions. Physical therapy has provided minimal improvements. 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 Patient has modified her duties at [employer] and has tried to go back at work but notices increased in pain. Denies any fever, shortness of breaths, chest pain, dizziness, gait imbalance, bladder or bowel incontinence or saddle anesthesia. Patient was referred to our office for potential trigger point injections. Onset 11/14/22 Location Mid and lower back, neck and buttocks radiates to right knee Duration Constant pain for past 4 months due to work-related injury Characteristics of symptom or complaint Aching, stabbing, sharp, throbbing, cramping, numbness, tingling, spasming Aggravating or associated factors Movements, walking, bending, lifting Relieving factors Resting, lidocaine patch, NSAIDs Treatment Physical therapy, home program exercises [facility] Medical History Numbness of right hand History of cervical cancer History of blood clots History of seizure Chronic low back pain Anxiety Graves disease 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 Surgical History History of cone biopsy of cervix History of D&C History of nasal surgery History of shoulder surgery History of carpal tunnel surgery History of lumbar surgery Social History Alcohol intake: never Patient Tobacco Use Status: Current everyday Tobacco user Tobacco use type: Cigarette Cigarette Packs Per Day: 0.5 Current occupational status: previously employed Review of Systems Const All systems reviewed & are unremarkable except as noted in HPI and below Physical Exam Vital Signs: Last Vital Signs Pulse 113 H 02/19/25 12:52 Resp 18 02/19/25 12:52 BP 119/65 02/19/25 12:52 Pulse Ox 100 02/19/25 12:52 Oxygen Delivery Method Room Air 02/19/25 12:52 General: Appears afebrile. Alert and oriented. Mood and affect appropriate. Follows and participates in conversation appropriately. Respiratory effort is unlabored. Able to transition from sit to stand unassisted. Ambulates with bilaterally normal heel strike and toe off. Lead Insertion Site: Lead insertion sites are clean, dry, intact on the left, slightly pulled out on the right. No pathological discharge, no swelling and no erythema. Left lead pulled with tip intact, lead removed entirely, including tip. Lead site dressings were changed today in the clinic. Results Reviewed Results Reviewed: NE electromyogram (EMG); NE nerve conduction velocity 03/15/24 FINDINGS: Right median sensory nerve showed prolonged peak latency. Interlatency difference between right median and radial sensory nerves was 0.8. All other nerves tested were within normal. Concentric needle EMG was performed in selected muscles of the right upper extremity and cervical paraspinals. Study did not reveal signs of electric abnormalities as shown in the table above. IMPRESSION: 1. This is an abnormal study. 2. There is electrodiagnostic evidence for right mild median neuropathy at the wrist, consistent with carpal tunnel syndrome. 3. There is no electrodiagnostic evidence for ulnar neuropathy, brachial plex opathy, or cervical radiculopathy. MR CERVICAL SPINE WITHOUT CONTRAST 03/25/23 FINDINGS: The cervical vertebral bodies maintain normal heights and alignment. There is incomplete segmentation of the C3-C4 level with a hypoplastic disc and fusion of the posterior elements. There is moderate disc height loss at C5-C6 and mild disc height loss at C4-C5. No marrow edema is seen. The cord signal appears normal. The imaged intracranial contents and extraspinal soft tissues are unremarkable. SPINAL LEVELS: C2-C3: No posterior disc abnormality. No spinal canal or neural foraminal stenosis. C3-C4: Hypoplastic disc and fused facets. No spinal canal or neural foraminal stenosis. C4-C5: Mild disc osteophyte complex with uncovertebral hypertrophy. Mild to moderate bilateral neural foraminal stenosis. No spinal canal stenosis. C5-C6: Disc osteophyte complex with uncovertebral hypertrophy resulting in severe bilateral neural foraminal stenosis. No spinal canal stenosis. C6-C7: Left foraminal protrusion with uncovertebral hypertrophy resulting in mild to moderate left neural foraminal stenosis. No spinal canal stenosis. C7-T1: No posterior disc abnormality. No spinal canal or neural foraminal stenosis. IMPRESSION: Multilevel degenerative spondylosis without significant narrowing of the spinal canal. Neural foraminal stenosis appears mild to moderate bilaterally at C4-C5, severe bilaterally at C5-C6, and mild to moderate on the left at C6-C7. XR THORACIC SPINE, 3 VIEWS XR LUMBAR SPINE, 3 VIEWS 03/06/23 FINDINGS: 5 nonrib-bearing lumbar-type vertebral bodies with suggestion of right L5 hemisacralization. No acute visible fracture or dislocation. Slight levocurvature of the mid lumbar spine. Mild to moderate multilevel degenerative changes disc space narrowing, endplate sclerosis, osteophyte formation, and facet arthropathy. Vertebral body heights and disc spaces are maintained. Posterior elements are intact. Paraspinal soft tissues are unremarkable. Visualized portions of the chest and abdomen are unremarkable. T-shaped IUD noted in the pelvis. IMPRESSION: 1. No acute visible fracture or dislocation. 2. Slight levocurvature of the mid lumbar spine. 3. Mild to moderate multilevel degenerative changes. 4. T-shaped IUD noted in the pelvis. XR CERVICAL SPINE 03/06/23 FINDINGS: No acute visible fracture or dislocation. Multilevel degenerative changes of the cervical spine greatest at C3-C4 with severe disc space narrowing and facet ankylosis. Visualized dens is intact. Vertebral body heights and disc spaces are maintained. Prevertebral soft tissues are unremarkable. Posterior elements are intact. Paraspinal soft tissues are unremarkable. Visualized portions of the upper chest are unremarkable. IMPRESSION: 1. No acute visible fracture or dislocation. 2. Multilevel degenerative changes of the cervical spine greatest at C3-C4 with severe disc space narrowing and facet ankylosis. Assessment & Plan Assessment & Plan (1) Cervical spondylosis: Code(s): M47.812 - Spondylosis without myelopathy or radiculopathy, cervical region Category: Medical (2) Myofascial neck pain: Code(s): M54.2 - Cervicalgia Category: Medical (3) Bilateral shoulder pain: Code(s): M25.511 - Pain in right shoulder; M25.512 - Pain in left shoulder Category: Medical (4) Radiculopathy, cervical: Code(s): M54.12 - Radiculopathy, cervical region Category: Medical Plan Sprint PNS resulted in very minimal pain improvement. I will schedule this patient for interlaminar epidural steroid injection C5-C6. I will see this patient after the procedure. Coding Level of Care Code Est Pt Level 3 (03818) Diagnoses Cervical spondylosis M47.812 Myofascial neck pain M54.2 Bilateral shoulder pain M25.511; M25.512 Radiculopathy, cervical M54.12
[2025-02-19 12:52] VITALS: BP 119/65; PULSE 113; RESP 18; O2SAT 100
== END 2025-02-19 13:03 | disposition home or self-care (01) ==
LOC: HO.PMC 12:46
PROVIDERS: PCP Internal Medicine; Visit Provider Anesthesiology
DX: M47.812 Spondylosis without myelopathy or radiculopathy, cervical region (principal); M54.2 Cervicalgia; M25.511 Pain in right shoulder; M25.512 Pain in left shoulder; M54.12 Radiculopathy, cervical region
CPT/HCPCS: 99213

== ENCOUNTER → 2025-02-19 12:45 | Outpatient (BNVA) | payer MEDICAID, SELFPAY | PROVIDERS: PCP Internal Medicine; Visit Provider Anesthesiology | DX: M47.812 Spondylosis without myelopathy or radiculopathy, cervical region (principal); M54.2 Cervicalgia; M25.511 Pain in right shoulder; M25.512 Pain in left shoulder; M54.12 Radiculopathy, cervical region | CPT/HCPCS: 99212 ==

== ENCOUNTER 2025-06-03 06:13 | Outpatient (REF) | payer MEDICAID, SELFPAY ==
--- NOTE | ~2025-06-03 | FL_ITS ---
EXAMINATION: XR FLUOROSCOPY WITH IMAGES CLINICAL INFORMATION: Radiculopathy COMPARISON: Prior procedure 12/24/2024 TECHNIQUE: Fluoroscopy provided to: Dr. Tapia Fluoroscopy time: 1 minutes DAP: 24.95 mGycm2 Images: 1 FINDINGS: Single fluoroscopic image of the cervical spine in the AP projection, demonstrate needle projected over the spine. A radiologist was not present during imaging. FL/FL guidance in treatment room IMPRESSION: Fluoroscopy during procedure. See procedure report for additional information. Electronically signed by: Jonah Arreguin MD 06/05/2025 08:18 AM EDT
--- OUTSIDE RECORDS SUMMARY | 2025-06-03 06:16 | XMS_ITS | Clinical Summary ---
Author Organization [facility] Address [address] [place] [address] Care Team Providers Care Farmer Vegetable Name Role Phone Francesca Good MD Primary Care Provider [phone] Allergies No known active allergies Medications Medication [...] (1 of 2) 2020 Influenza Vaccine (#1) 2025 Pneumococcal Vaccine Aged Out No long er eligible based on patient's age to complete this topic RSV Ped < 20 months Aged Out No longe r eligible based on patient's age to complete this topic Insurance Payer Benefit Plan / Group Subscriber ID Effective Dates Phone Address [facility] [id number] 2020-Present [address] [facility] [address] [place] [address] [facility] [employer] [id number] 2020-Alyson [address]CC[address]OUGH [address] [place] [address] Care Teams Farmer Vegetable Relationship Specialty Start Date End Date Francesca Good MD PCP - General Internal Medicine 01/27/22
== END 2025-06-03 06:14 | disposition home or self-care (01) ==
LOC: CF 06:13
PROVIDERS: Visit Provider Anesthesiology
DX: M54.12 Radiculopathy, cervical region (principal)
CPT/HCPCS: 62321; J1100; J2003; Q9967

== ENCOUNTER 2025-06-03 10:00 | Outpatient (AMB) | payer MEDICAID, SELFPAY ==
--- NOTE | 2025-06-03 10:12 | MHC.OFFVIS ---
Vital Signs 06/03/25 10:13 06/03/25 10:34 Height 5 ft 6 in Weight 195 lb BMI 31.5 BP 125/75 125/75 Blood Pressure Location Lt brachial Lt brachial Position Sitting Sitting Respiration 16 16 Pulse 100 105 H Pulse Source Pulse Oximeter Pulse Oximeter Pulse Oximetry (%) 98 99 Oxygen Delivery Method Room Air Room Air Intake Visit Reasons: C5-C6 Interlaminar JEOVANY Allergies No Known Allergies Allergy (Verified 02/19/25 12:51) PFSH Medical History Numbness of right hand History of cervical cancer History of blood clots History of seizure Chronic low back pain Anxiety Graves disease 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 Surgical History History of cone biopsy of cervix History of D&C History of nasal surgery History of shoulder surgery History of carpal tunnel surgery History of lumbar surgery Social History Alcohol intake: never Patient Tobacco Use Status: Current everyday Tobacco user Tobacco use type: Cigarette Cigarette Packs Per Day: 0.5 Current occupational status: previously employed Physical Exam Vital Signs: Last Vital Signs Pulse 105 H 06/03/25 10:34 Resp 16 06/03/25 10:34 BP 125/75 06/03/25 10:34 Pulse Ox 99 06/03/25 10:34 Oxygen Delivery Method Room Air 06/03/25 10:34 BMI result Body Mass Index 31.5 Assessment & Plan Assessment & Plan (1) Radiculopathy, cervical: Code(s): M54.12 - Radiculopathy, cervical region Category: Medical Plan Attempts at Interlaminar C6-C7 epidural steroid injection. Informed consent was thoroughly explained to the patient before the procedure.? The patient came to the operating room.? She was positioned prone on operating table with a pillow under her chest.? Time-out was performed delineating correct site and side of the procedure, nature of the injection, name and date of of the patient. The upper back and the lower neck of the patient was prepped with ChloraPrep and draped with sterile utility towels.? C-arm was brought over the operating field and sq picture of C5-C6 vertebra was demonstrated on the screen.? C5-C6 interlaminar interspace appeared to be non-existent. The decision was made to proceed with C6-C7 JEOVANY. The injection was made in the projection of the left C7 lamina. After that 20 gauge 10 cm Touhy needle was inserted through the skin wheal and attempted to be advanced to were the epidural space. However after needle was inserted only 2 cm the patient informed us that she is experiencing a panic attack. The needle was removed and sterile Band-Aid was applied. She requested to reschedule the procedure. I instead invited the patient to discuss on the appointment with me in few days. Orders: Orders FL guidance in treatment room Today M54.12 - Radiculopathy, cervical region Coding Level of Care Code Procedure Only Diagnoses Radiculopathy, cervical M54.12
[2025-06-03 10:13] VITALS: BP 125/75; PULSE 100; RESP 16; O2SAT 98; BMI 31.5
[2025-06-03 10:34] VITALS: BP 125/75; PULSE 105; RESP 16; O2SAT 99
== END 2025-06-03 10:35 | disposition home or self-care (01) ==
LOC: HO.PMCPRC 10:00
PROVIDERS: PCP Internal Medicine; Visit Provider Anesthesiology
DX: M54.12 Radiculopathy, cervical region (principal)
CPT/HCPCS: 62321

== ENCOUNTER 2025-06-11 13:15 | Outpatient (AMB) | payer MEDICAID, SELFPAY ==
--- NOTE | 2025-06-11 13:22 | A.OFFVIS_ITS ---
Vital Signs 06/11/25 13:23 Height 5 ft 6 in Weight 196 lb BMI 31.6 BP 147/70 H Blood Pressure Location Rt brachial Position Sitting Respiration 16 Pulse 97 Pulse Source Pulse Oximeter Pulse Oximetry (%) 98 Oxygen Delivery Method Room Air Intake Visit Reasons: follow up after procedure/per Dr. King Piece Hand Required: No Accompanied by: Self / Same As Patient Allergies No Known Allergies Allergy (Verified 06/11/25 13:24) HPI Comments Details: Carolee is back in my office to discuss situation at hands. Unfortunately we were not able to complete the injection we were planning. She was on the schedule for epidural steroid injection. I was able to advance the needle only 2 cm when patient stated that she wants to abort the procedure. This is not the injection which could be done under deep sedation. I explained that to the patient then and I explained that to her today as well. I recommended her to consider Nevro spinal cord stimulator. She needs to go for psychological evaluation. She has her psychologist/psychiatrist who can provide us the evaluation. She was given a template to attention of her mental health provider to complete the evaluation. After that we will start to plan her for the Nevro SCS trial. Prior: History of completion of the treatment with sprint PNS. She reported very minimal improvement with sprint PNS. She reported some if any pain relief on stimulation however now after the removal of the device her pain came back and it is very severe. She reports her pain today 8 to 9/10. She reports mobility of her neck is getting worse. Attention was attracted to the MRI data demonstrating C5-C6 severe foraminal stenosis. I offered the patient to perform interlaminar C5-C6 epidural steroid injection. Patient agreed to go for the procedure. Risks and benefits were thoroughly explained to the patient. The dressing was removed today the electrodes were removed and sterile Band-Aid were applied.. Area was cleansed with Chloraprep, applied Bacitracin and covered with gauze dressing. Left lead site dressing changed as well. Past Procedures: 02/04/25: Right C5 Sprint PNS [id number]% ongoing pain relief 12/24/24: Left C5 Sprint PNS placement-70% pain relief 12/10/24: Right C5 Sprint PNS placement-50% pain relief 09/24/24: Bilateral therapeutic C4-C5-C6 MBB-80% pain relief for 1 week, ongoing 60% pain relief 07/02/24: Bilateral diagnostic C4-C5-C6 MBB-80% pain relief for 6 hours, ongoing 60% pain relief PRIOR: Patient is a pleasant 52 years old female with history of seizures, depression, back [place] [address] Weber, methadone usage presents today with work related injury presents with neck pain that radiates to her arm, worse on the right with constant numbness, tingling, paresthesias and lower back pain with radiation into her right buttock and into her posterior thigh with occasional numbness and tingling but not below knee level. She reports a box and from a 6 feet tall shelf and hit her in the middle posterior neck and glided on her back causing her significant ongoing pain, headaches, muscle spasms, stiffness and decreased functionality with walking and bending but does not necessarily go away with rest. Pain affects her daily functioning, activities, sleep, mood, and social interactions. Physical therapy has provided minimal improvements. 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 Patient has modified her duties [facility] [employer] and has tried to go back at work but notices increased in pain. Denies any fever, shortness of breaths, chest pain, dizziness, gait imbalance, bladder or bowel incontinence or saddle anesthesia. Patient was referred to our office for potential trigger point injections. Onset 11/14/22 Location Mid and lower back, neck and buttocks radiates to right knee Duration Constant pain for past 4 months due to work-related injury Characteristics of symptom or complaint Aching, stabbing, sharp, throbbing, cramping, numbness, tingling, spasming Aggravating or associated factors Movements, walking, bending, lifting Relieving factors Resting, lidocaine patch, NSAIDs Treatment Physical therapy, home program exercises [facility] Medical History Numbness of right hand History of cervical cancer History of blood clots History of seizure Chronic low back pain Anxiety Graves disease 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 Surgical History History of cone biopsy of cervix History of D&C History of nasal surgery History of shoulder surgery History of carpal tunnel surgery History of lumbar surgery Social History Alcohol intake: never Patient Tobacco Use Status: Current everyday Tobacco user Tobacco use type: Cigarette Cigarette Packs Per Day: 0.5 Current occupational status: previously employed Review of Systems Const All systems reviewed & are unremarkable except as noted in HPI and below Physical Exam Vital Signs: Last Vital Signs Pulse 97 06/11/25 13:23 Resp 16 06/11/25 13:23 BP 147/70 H 06/11/25 13:23 Pulse Ox 98 06/11/25 13:23 Oxygen Delivery Method Room Air 06/11/25 13:23 BMI result Body Mass Index 31.6 General: Appears afebrile. Alert and oriented. Mood and affect appropriate. Follows and participates in conversation appropriately. Respiratory effort is unlabored. Able to transition from sit to stand unassisted. Ambulates with bilaterally normal heel strike and toe off. Lead Insertion Site: Lead insertion sites are clean, dry, intact on the left, slightly pulled out on the right. No pathological discharge, no swelling and no erythema. Left lead pulled with tip intact, lead removed entirely, including tip. Lead site dressings were changed today in the clinic. Assessment & Plan Assessment & Plan (1) Cervical spondylosis: Code(s): M47.812 - Spondylosis without myelopathy or radiculopathy, cervical region Category: Medical (2) Myofascial neck pain: Code(s): M54.2 - Cervicalgia Category: Medical (3) Bilateral shoulder pain: Code(s): M25.511 - Pain in right shoulder; M25.512 - Pain in left shoulder Category: Medical (4) Radiculopathy, cervical: Code(s): M54.12 - Radiculopathy, cervical region Category: Medical Plan Sprint PNS resulted in very minimal pain improvement. patient was not able to tolerate interlaminar epidural steroid injection. I decided to offer the patient spinal cord stimulator Nevro. In my opinion it would be better than continue to perform multiple injections to alleviate her pain. Patient will provide us psychological evaluation from her psychiatrist. After that we will see her here on an appointment and we will discuss the procedure, we will schedule procedure under deep sedation or general anesthesia in the operating room. Patient Instructions: I here by testify that I spent 30 minutes in conversation with this patient as well as planning her care organizing this note. Coding Level of Care Code Est Pt Level 4 (00522) Diagnoses Cervical spondylosis M47.812 Myofascial neck pain M54.2 Bilateral shoulder pain M25.511; M25.512 Radiculopathy, cervical M54.12
[2025-06-11 13:23] VITALS: BP 147/70; PULSE 97; RESP 16; O2SAT 98; BMI 31.6
--- OUTSIDE RECORDS SUMMARY | 2025-06-11 16:49 | XMS_ITS | Clinical Summary ---
Author Organization [facility] Address [address] [place] [address] Care Team Providers Care Vault Keeper Name Role Phone Francesca Good MD Primary Care Provider [phone] Allergies No known active allergies Medications Medication [...] Subscriber ID Effective Dates Phone Address [facility] [employer] [facility] [id number] 2020-Present [address] [facility] [address] [place] [address] [facility] [employer] [id number] 2020-Alyson [address] [place] [address] Care Teams Vault Keeper Relationship Specialty Start Date End Date Francesca Good MD PCP - General Internal Medicine 01/27/22
== END 2025-06-11 13:37 | disposition home or self-care (01) ==
PROVIDERS: PCP Internal Medicine; Visit Provider Anesthesiology
DX: M47.812 Spondylosis without myelopathy or radiculopathy, cervical region (principal); M54.2 Cervicalgia; M25.511 Pain in right shoulder; M25.512 Pain in left shoulder; M54.12 Radiculopathy, cervical region
CPT/HCPCS: 99214

== ENCOUNTER → 2025-06-11 13:15 | Outpatient (BNVA) | payer MEDICAID, SELFPAY | PROVIDERS: PCP Internal Medicine; Visit Provider Anesthesiology | DX: M47.812 Spondylosis without myelopathy or radiculopathy, cervical region (principal); M54.2 Cervicalgia; M25.511 Pain in right shoulder; M25.512 Pain in left shoulder; M54.12 Radiculopathy, cervical region | CPT/HCPCS: 99212 ==

== ENCOUNTER 2025-07-21 14:42 | Outpatient (AMB) | payer MEDICAID, SELFPAY ==
--- NOTE | 2025-07-21 14:46 | MHC.OFFVIS ---
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 Her pain is constant and began from a work-related injury severeal years ago. Previous interventions include an attempted cervical epidural steroid injection by Dr. King, which was unsuccessful, and a prior trial with a cervical spine Sprint PNS trial that provided minimal improvement. For pain management, she currently uses aspirin and pain patches on her neck and back. She also takes methadone, which she obtains from a clinic in [facility]. Following the failed injection, Dr. King recommended a Nevro Spinal Cord Stimulator on 06/11/25. The patient's past medical history is significant for anxiety and panic attacks, for which she sees a counselor at [facility] in [place] via phone and office appointments. She denies a history of diabetes or use of blood thinners. Denies any recent cough, cold, infection, fever or any significant changes in medical history since last office visit. - Onset: The pain started from a work-related injury approximately three years ago. - Location: The patient reports pain in her neck and back. - Quality: The pain is described as constant. - Radiating Pain: The patient has associated arm pain. - Analgesia: The patient manages her constant neck and back pain with aspirin, pain patches, and methadone. - Affect: She sees a counselor for anxiety and panic attacks. - Aberrant Drug-Related Behaviors: The patient receives methadone through a clinic. PRIOR Dr. King 06/11/25: Carolee is back in my office to discuss situation at hands. Unfortunately we were not able to complete the injection we were planning. She was on the schedule for epidural steroid injection. I was able to advance the needle only 2 cm when patient stated that she wants to abort the procedure. This is not the injection which could be done under deep sedation. I explained that to the patient then and I explained that to her today as well. I recommended her to consider Nevro spinal cord stimulator. She needs to go for psychological evaluation. She has her psychologist/psychiatrist who can provide us the evaluation. She was given a template to attention of her mental health provider to complete the evaluation. After that we will start to plan her for the Nevro SCS trial. Prior: History of completion of the treatment with sprint PNS. She reported very minimal improvement with sprint PNS. She reported some if any pain relief on stimulation however now after the removal of the device her pain came back and it is very severe. She reports her pain today 8 to 9/10. She reports mobility of her neck is getting worse. Attention was attracted to the MRI data demonstrating C5-C6 severe foraminal stenosis. I offered the patient to perform interlaminar C5-C6 epidural steroid injection. Patient agreed to go for the procedure. Risks and benefits were thoroughly explained to the patient. The dressing was removed today the electrodes were removed and sterile Band-Aid were applied.. Area was cleansed with Chloraprep, applied Bacitracin and covered with gauze dressing. Left lead site dressing changed as well. Past Procedures: 02/04/25: Right C5 Sprint PNS [id number] ongoing pain relief 12/24/24: Left C5 Sprint PNS placement-70% pain relief 12/10/24: Right C5 Sprint PNS placement-50% pain relief 09/24/24: Bilateral therapeutic C4-C5-C6 MBB-80% pain relief for 1 week, ongoing 60% pain relief 07/02/24: Bilateral diagnostic C4-C5-C6 MBB-80% pain relief for 6 hours, ongoing 60% pain relief PRIOR: Patient is a pleasant 52 years old female with history of seizures, depression, back surgery [place] [address] Weber, methadone usage presents today with work related injury presents with neck pain that radiates to her arm, worse on the right with constant numbness, tingling, paresthesias and lower back pain with radiation into her right buttock and into her posterior thigh with occasional numbness and tingling but not below knee level. She reports a box and from a 6 feet tall shelf and hit her in the middle posterior neck and glided on her back causing her significant ongoing pain, headaches, muscle spasms, stiffness and decreased functionality with walking and bending but does not necessarily go away with rest. Pain affects her daily functioning, activities, sleep, mood, and social interactions. Physical therapy has provided minimal improvements. 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 Patient has modified her duties at [employer] and has tried to go back at work but notices increased in pain. Denies any fever, shortness of breaths, chest pain, dizziness, gait imbalance, bladder or bowel incontinence or saddle anesthesia. Patient was referred to our office for potential trigger point injections. Onset 11/14/22 Location Mid and lower back, neck and buttocks radiates to right knee Duration Constant pain for past 4 months due to work-related injury Characteristics of symptom or complaint Aching, stabbing, sharp, throbbing, cramping, numbness, tingling, spasming Aggravating or associated factors Movements, walking, bending, lifting Relieving factors Resting, lidocaine patch, NSAIDs Treatment Physical therapy, home program exercises [facility] Medical History Numbness of right hand History of cervical cancer History of blood clots History of seizure Chronic low back pain Anxiety Graves disease 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 Surgical History History of cone biopsy of cervix History of D&C History of nasal surgery History of shoulder surgery History of carpal tunnel surgery History of lumbar surgery Social History Alcohol intake: never Patient Tobacco Use Status: Current everyday Tobacco user Tobacco use type: Cigarette Cigarette Packs Per Day: 0.5 Current occupational status: previously employed Review of Systems Const All systems reviewed & are unremarkable except as noted in HPI and below Physical Exam Vital Signs: Last Vital Signs Pulse 115 H 07/21/25 14:49 BP 132/61 07/21/25 14:49 Pulse Ox 96 07/21/25 14:49 Oxygen Delivery Method Room Air 07/21/25 14:49 BMI result Body Mass Index 33.1 General: Appears afebrile. Alert and oriented. Mood and affect appropriate. Follows and participates in conversation appropriately. Respiratory effort is unlabored. Able to transition from sit to stand unassisted. Ambulates with bilaterally normal heel strike and toe off. Neck Other: Limited cervical ROM in all planes, worse on the right. Moderate pain with cervical extension. Spurling compression test negative. Elvey's tension test positive on the right, with radiation of pain from neck to wrist with aching and tingling in all fingers on the right. Denies burning pain in right hand or fingers. Lhermitte's test was negative. DTR intact, +2 and symmetrical. Patient demonstrated 5/5 motor strength of bilateral upper extremities. 2 + radial pulses. No clonus, negative Jimmie's sign. Neck: Yes normal visual inspection, Yes no lymphadenopathy, Yes supple, No anterior neck swelling, Yes no JVD, No prominent supraclavicular fat pad and Yes prominent dorsocervical fat pad General: Yes no CVA tenderness Back/Spine/Pelvis Back: no CVA tenderness Cervical Spine: cervical muscular tenderness (right>left), pain with cervical ROM (mild), No Cervical spine scars present, cervical spasm, No Cervical spine tenderness and No step off deformity Thoracic/Lumbar Spine: thoracic and lumbar spine normal to inspection, No Thoracic/lumbar spine scar(s), pain with thoraco-lumbar ROM, thoraco-lumbar ROM limited, No thoracic spinal tenderness and lumbar spinal tenderness at L4 and at L5 Results Reviewed Results Reviewed: NE electromyogram (EMG); NE nerve conduction velocity 03/15/24 FINDINGS: Right median sensory nerve showed prolonged peak latency. Interlatency difference between right median and radial sensory nerves was 0.8. All other nerves tested were within normal. Concentric needle EMG was performed in selected muscles of the right upper extremity and cervical paraspinals. Study did not reveal signs of electric abnormalities as shown in the table above. IMPRESSION: 1. This is an abnormal study. 2. There is electrodiagnostic evidence for right mild median neuropathy at the wrist, consistent with carpal tunnel syndrome. 3. There is no electrodiagnostic evidence for ulnar neuropathy, brachial plexopathy, or cervical radiculopathy. MR CERVICAL SPINE WITHOUT CONTRAST 03/25/23 FINDINGS: The cervical vertebral bodies maintain normal heights and alignment. There is incomplete segmentation of the C3-C4 level with a hypoplastic disc and fusion of the posterior elements. There is moderate disc height loss at C5-C6 and mild disc height loss at C4-C5. No marrow edema is seen. The cord signal appears normal. The imaged intracranial contents and extraspinal soft tissues are unremarkable. SPINAL LEVELS: C2-C3: No posterior disc abnormality. No spinal canal or neural foraminal stenosis. C3-C4: Hypoplastic disc and fused facets. No spinal canal or neural foraminal stenosis. C4-C5: Mild disc osteophyte complex with uncovertebral hypertrophy. Mild to moderate bilateral neural foraminal stenosis. No spinal canal stenosis. C5-C6: Disc osteophyte complex with uncovertebral hypertrophy resulting in severe bilateral neural foraminal stenosis. No spinal canal stenosis. C6-C7: Left foraminal protrusion with uncovertebral hypertrophy resulting in mild to moderate left neural foraminal stenosis. No spinal canal stenosis. C7-T1: No posterior disc abnormality. No spinal canal or neural foraminal stenosis. IMPRESSION: Multilevel degenerative spondylosis without significant narrowing of the spinal canal. Neural foraminal stenosis appears mild to moderate bilaterally at C4-C5, severe bilaterally at C5-C6, and mild to moderate on the left at C6-C7. XR THORACIC SPINE, 3 VIEWS XR LUMBAR SPINE, 3 VIEWS 03/06/23 FINDINGS: 5 nonrib-bearing lumbar-type vertebral bodies with suggestion of right L5 hemisacralization. No acute visible fracture or dislocation. Slight levocurvature of the mid lumbar spine. Mild to moderate multilevel degenerative changes disc space narrowing, endplate sclerosis, osteophyte formation, and facet arthropathy. Vertebral body heights and disc spaces are maintained. Posterior elements are intact. Paraspinal soft tissues are unremarkable. Visualized portions of the chest and abdomen are unremarkable. T-shaped IUD noted in the pelvis. IMPRESSION: 1. No acute visible fracture or dislocation. 2. Slight levocurvature of the mid lumbar spine. 3. Mild to moderate multilevel degenerative changes. 4. T-shaped IUD noted in the pelvis. XR CERVICAL SPINE 03/06/23 FINDINGS: No acute visible fracture or dislocation. Multilevel degenerative changes of the cervical spine greatest at C3-C4 with severe disc space narrowing and facet ankylosis. Visualized dens is intact. Vertebral body heights and disc spaces are maintained. Prevertebral soft tissues are unremarkable. Posterior elements are intact. Paraspinal soft tissues are unremarkable. Visualized portions of the upper chest are unremarkable. IMPRESSION: 1. No acute visible fracture or dislocation. 2. Multilevel degenerative changes of the cervical spine greatest at C3-C4 with severe disc space narrowing and facet ankylosis. Assessment & Plan Assessment & Plan (1) Cervical spondylosis: Code(s): M47.812 - Spondylosis without myelopathy or radiculopathy, cervical region Category: Medical (2) Cervical radiculitis: Code(s): M54.12 - Radiculopathy, cervical region Category: Medical (3) Radiculopathy, cervical: Code(s): M54.12 - Radiculopathy, cervical region Category: Medical (4) Chronic pain syndrome: Code(s): G89.4 - Chronic pain syndrome Category: Medical Plan The plan is to proceed with a Nevro Spinal Cord Stimulator (SCS) for the patient's chronic neck pain, as an epidural steroid injection was not feasible and previous Sprint PNS trial was partially effective. This is contingent upon the patient passing a mandatory behavioral evaluation. A referral will be placed for the patient to see a psychiatrist at her behavioral health clinic ([facility] in [place]) for this evaluation. Extensive discussion regarding the risks and benefits of SCS trial and implant procedures and all questions were answered to patient satisfaction. A follow-up visit will be scheduled one week after the trial is completed to discuss the results and next steps. If the trial does not work, alternative treatment options will be discussed. The patient will continue her current pain management regimen, which includes Ibuprofen or naproxen prn, lidocaine patches, and methadone. Brochures detailing the SCS trial and implant were provided to the patient. All questions and concerns have been answered and patient agreed with the treatment plan. Follow up as needed. Patient was informed and verbally consented to the use of an ambient scribe for clinic note documentation during this visit. Orders: Referrals Psychology Referral G89.4 - Chronic pain syndrome, M47.812 - Spondylosis without myelopathy or radiculopathy, cervical region, M54.12 - Radiculopathy, cervical region Coding Level of Care Code Est Pt Level 3 (10176) Complex visit Add On G2211 Diagnoses Cervical spondylosis M47.812 Cervical radiculitis M54.12 Radiculopathy, cervical M54.12 Chronic pain syndrome G89.4
[2025-07-21 14:49] VITALS: BP 132/61; PULSE 115; O2SAT 96; BMI 33.1
--- OUTSIDE RECORDS SUMMARY | 2025-07-21 23:59 | XMS_ITS | Clinical Summary ---
Author Organization [facility] Prior to 01/11/[address] [place] [id number] Care Team Providers Care Supervisor Instrument Mechanics Name Role Phone Francesca Good MD Primary Care Provider [phone] Allergies No known active allergies Medications Medication [...] Phone Address [facility] [employer] [facility] [id number] 2020-Present [address] [facility] [address] [place] [id number] [facility] [employer] [id number] 2020-Alyson max [address] [place] [id number] Care Teams Supervisor Instrument Mechanics Relationship Specialty Start Date End Date Francesca Good MD PCP - General Internal Medicine 01/27/22
== END 2025-07-21 15:16 | disposition home or self-care (01) ==
LOC: HO.PMC 14:43
PROVIDERS: PCP Internal Medicine; Visit Provider Nurse Practitioner Family
DX: M47.812 Spondylosis without myelopathy or radiculopathy, cervical region (principal); M54.12 Radiculopathy, cervical region; G89.4 Chronic pain syndrome
CPT/HCPCS: 99213

== ENCOUNTER → 2025-07-21 14:42 | Outpatient (BNVA) | payer MEDICAID, SELFPAY | PROVIDERS: PCP Internal Medicine; Visit Provider Nurse Practitioner Family | DX: M54.12 Radiculopathy, cervical region (principal); M47.812 Spondylosis without myelopathy or radiculopathy, cervical region; G89.4 Chronic pain syndrome; F17.210 Nicotine dependence, cigarettes, uncomplicated; F41.0 Panic disorder [episodic paroxysmal anxiety] | CPT/HCPCS: 99212 ==